=== PATIENT | male | born 1935 | race Asian ===

== ENCOUNTER 2021-10-14 07:47 | Outpatient (CLI) | payer MEDICARE, SELFPAY ==
[2021-10-14 20:23] LABS: Hematocrit 35.9 % (42.0-52.0); Hemoglobin 11.4 g/dL (14.0-18.0); Mean Corpuscular HGB Conc 31.8 g/dl (32-36); Mean Corpuscular Hemoglobin 31.5 pg (26-34); Mean Corpuscular Volume 99.2 fl (80-100); Mean Platelet Volume 11.2 fl (7.4-10.4); Platelet Count Result 158 k/mm3 (150-375); Red Blood Count 3.62 M/mm3 (4.6-6.20); White Blood Count 5.1 K/mm3 (4.5-10.0)
[2021-10-14 20:33] LABS: Alanine Aminotransferase 21 U/L (4-50); Albumin Level 4.1 g/dL (3.5-5.1); Alkaline Phosphatase 87 U/L (38-126); Anion Gap 9 mmol/L (8-16); Aspartate Amino Transferase 41 U/L (17-59); Bilirubin,Total 0.4 mg/dL (0.2-1.3); Blood Urea Nitrogen 36 mg/dL (9-20); Calcium 10.1 mg/dL (8.4-10.2); Carbon Dioxide 24 mmol/L (22-30); Chloride 109 mmol/L (98-107); Cholesterol 166 mg/dL (0-200); Estimated Glomerular Filt Rate 52; Glucose 113 mg/dL (65-110); HDL Direct 51 mg/dL; Potassium 4.2 mmol/L (3.4-5.0); Sodium 142 mmol/L (137-145); Triglycerides 210 mg/dL (<150)
[2021-10-14 21:00] LABS: Creatinine Urine 111.9 mg/dL; Prostate Specific Antigen 0.3 ng/mL (< OR = 4.0)
[2021-10-14 21:05] LABS: MALB Creatinine Ratio 10.7 mg/g (0-30)
[2021-10-14 21:37] LABS: Hemoglobin A1C 6.5 % (<5.7)
[2021-10-15 00:13] LABS: LDL Cholesterol Direct < 30 mg/dL
== END 2021-10-14 07:48 | disposition home or self-care (01) ==
PROVIDERS: PCP Family Medicine; Visit Provider Family Medicine
DX: E11.9 Type 2 diabetes mellitus without complications (principal); N40.0 Benign prostatic hyperplasia without lower urinary tract symptoms; I10 Essential (primary) hypertension; Z12.5 Encounter for screening for malignant neoplasm of prostate
CPT/HCPCS: 36415; 80053; 80061; 82043; 83036; 84153; 85027; G0103

== ENCOUNTER 2021-11-08 13:15 | Outpatient (CLI) | payer MEDICARE, SELFPAY | END 2021-11-08 13:16 | disposition home or self-care (01) | LOC: ANHBWCAUD 13:17 | PROVIDERS: PCP Family Medicine; Visit Provider Family Medicine | DX: H90.3 Sensorineural hearing loss, bilateral (principal) | CPT/HCPCS: 92557; 92567 ==

== ENCOUNTER 2021-11-26 10:45 | Outpatient (CLI) | payer MEDICARE, SELFPAY ==
--- NOTE | ~2021-11-26 | CT_ITS ---
EXAMINATION: CT brain wo con DATE: 11/26/2021 11:30 INDICATION: Loss of balance. Essential hypertension. TECHNIQUE: Computed tomography (CT) of the head was performed without intravenous contrast. The mA wa s adjusted according to patient size. Iterative reconstruction technique was employed. Exam dose: 68 1.00 mGy-cm total exam DLP. COMPARISON: None FINDINGS: Prominent bilateral carotid siphon internal carotid artery calcifications. There is nonspec ific diminished attenuation of the cerebral white matter, likely due to chronic small vessel ischemic changes. There is prominent central and cortical cerebral and cerebellar volume loss. No intracranial mass lesion or hemorrhage, midline shift or mass effect effect or subdural or epidura l hematoma is detected. The orbital contents are unremarkable. Prominent chronic appearing bilateral maxillary sinus opacification wall thickening. The paranasal si nuses and mastoid air cells are otherwise unremarkable. No fracture or bone destruction of the cranial vault. IMPRESSION: Bilateral carotid siphon internal carotid artery calcifications and nonspecific diminish ed attenuation of cerebral white matter, likely due to chronic small vessel ischemic changes Cerebral and cerebellar volume loss, likely age-related Chronic-appearing bilateral maxillary sinus opacification wall thickening Reviewed, dictated and finalized at [facility]. Reviewed, dictated and finalized at location [facility]. IMPRESSION: Bilateral carotid siphon internal carotid artery calcifications an d nonspecific diminished attenuation of cerebral white matter, likely due to ch ronic small vessel ischemic changes Cerebral and cerebellar volume loss, likely age-related Chronic-appearing bilateral maxillary sinus opacification wall thickening
== END 2021-11-26 10:46 | disposition home or self-care (01) ==
PROVIDERS: PCP Family Medicine; Visit Provider Family Medicine
DX: R42 Dizziness and giddiness (principal); I10 Essential (primary) hypertension; R93.0 Abnormal findings on diagnostic imaging of skull and head, not elsewhere classified
CPT/HCPCS: 70450

== ENCOUNTER 2022-01-21 09:47 | Outpatient (RCR) | payer MEDICARE, SELFPAY | END 2022-04-21 23:59 | disposition home or self-care (01) | LOC: ANHBWCAUD 09:47 | PROVIDERS: PCP Family Medicine; Visit Provider Family Medicine | DX: Z46.1 Encounter for fitting and adjustment of hearing aid (principal) | CPT/HCPCS: V5160; V5261 ==

== ENCOUNTER 2022-02-25 07:54 | Outpatient (CLI) | payer MEDICARE, SELFPAY ==
[2022-02-25 18:46] LABS: Hematocrit 30.6 % (42.0-52.0); Hemoglobin 9.5 g/dL (14.0-18.0); Mean Corpuscular Hemoglobin 30.8 pg (26-34); Mean Corpuscular Volume 99.4 fl (80-100); Platelet Count Result 258 k/mm3 (150-375); Red Blood Count 3.08 M/mm3 (4.6-6.20); Red Cell Distribution Width 14.7 % (11.5-14.5); White Blood Count 6.6 K/mm3 (4.5-10.0)
[2022-02-25 18:47] LABS: Basophils Percent Auto 0.6 % (0.2-1.2); Eosinophils Absolute Auto 0.1 K/mm3 (0-0.3); Eosinophils Percent Auto 0.9 % (0-4.4); Immature Granulocyte Absolute 0.05 K/mm3 (0.00-0.031); Immature Granulocyte Percent A 0.8 % (0-0.5); Lymphocytes Absolute Auto 0.86 K/mm3 (0.9-3.2); Mean Platelet Volume 11.2 fl (7.4-10.4); Monocytes Absolute Auto 0.5 K/mm3 (0.1-0.6); Monocytes Percent Auto 7.6 % (2.6-8.5); Neutrophils Absolute Auto 5.1 K/mm3 (1.3-6.7); Neutrophils Percent Auto 77.1 % (45.5-73.1)
[2022-02-25 19:05] LABS: Appearance Urine Clear (Clear); Bilirubin Urine Negative (Negative); Blood Urine Negative (Negative); Color Urine Yellow (Yellow); Glucose Urine UA Negative (Negative); Ketones Urine Negative (Negative); Leukocyte Esterase Ur Negative LEU/UL (NEGATIVE); Nitrate Urine Negative (Negative); Protein Urine 1+ mg/dL (Negative); Specific Grav Ur >= 1.030 (1.001-1.035); pH Urine 5.5 (5.0-9.0)
[2022-02-25 19:14] LABS: Mucus Urine Heavy /lpf; Squamous Epithelial Cell Urine Rare /hpf (Few); WBC Urine 0-3 /hpf (0-3)
[2022-02-25 19:23] LABS: Add Urine Microscopic? YES
[2022-02-25 20:03] LABS: Hemoglobin A1C 6.7 % (<5.7)
== END 2022-02-25 07:55 | disposition home or self-care (01) ==
PROVIDERS: PCP Family Medicine; Visit Provider Family Medicine
DX: R53.1 Weakness (principal); U07.1 COVID-19; E11.9 Type 2 diabetes mellitus without complications
CPT/HCPCS: 36415; 81001; 83036; 84443; 85025

== ENCOUNTER 2022-03-06 09:30 | Outpatient (CLI) | payer MEDICARE, SELFPAY ==
[2022-03-06 19:59] LABS: Immature Reticulocyte Fraction 9.4 % (3.0-15.9); Reticulocyte Hemoglobin Conten 37.9 pg (28.2-35.7); Reticulocyte Percent 2.24 % (0.7-4.3); Reticulocytes Absolute 0.07 B/L (32.2-175.7)
[2022-03-06 20:26] LABS: Appearance Urine Clear (Clear); Bilirubin Urine Negative (Negative); Blood Urine Negative (Negative); Color Urine Yellow (Yellow); Glucose Urine UA Negative (Negative); Ketones Urine Negative (Negative); Leukocyte Esterase Ur Negative LEU/UL (NEGATIVE); Nitrate Urine Negative (Negative); Protein Urine Negative (Negative); Urobilinogen Urine 0.2 mg/dL (<2.0)
[2022-03-06 20:32] LABS: Add Urine Microscopic? NO
[2022-03-06 21:17] LABS: Iron 102 ug/dL (49-181)
[2022-03-06 21:59] LABS: Percent Iron Saturation 31 % (20-50)
== END 2022-03-06 09:31 | disposition home or self-care (01) ==
PROVIDERS: PCP Family Medicine; Visit Provider Family Medicine
DX: D64.9 Anemia, unspecified (principal); R31.9 Hematuria, unspecified
CPT/HCPCS: 36415; 81003; 82607; 82728; 83540; 83550; 85046

== ENCOUNTER 2022-04-16 08:34 | Outpatient (CLI) | payer MEDICARE, SELFPAY ==
[2022-04-16 20:08] LABS: Appearance Urine Slightly Cloudy (Clear); Bilirubin Urine Negative (Negative); Blood Urine 1+ (Negative); Color Urine Yellow (Yellow); Glucose Urine UA Negative (Negative); Ketones Urine Negative (Negative); Leukocyte Esterase Ur Negative LEU/UL (NEGATIVE); Nitrate Urine Negative (Negative); Protein Urine Negative (Negative); Specific Grav Ur >= 1.030 (1.001-1.035); Urobilinogen Urine 0.2 mg/dL (<2.0)
[2022-04-16 20:15] LABS: Calcium Oxalate Crystals Urine Present /hpf; Mucus Urine Few /lpf; RBC Urine 21-50 /hpf (0-2); WBC Urine 0-3 /hpf (0-3)
[2022-04-16 20:17] LABS: Add Urine Microscopic? YES
[2022-04-16 20:29] LABS: Basophils Absolute Auto 0.1 K/mm3 (0.0-0.1); Eosinophils Absolute Auto 0.1 K/mm3 (0-0.3); Eosinophils Percent Auto 1.5 % (0-4.4); Hematocrit 34.7 % (42.0-52.0); Hemoglobin 10.9 g/dL (14.0-18.0); Immature Granulocyte Absolute 0.01 K/mm3 (0.00-0.031); Immature Granulocyte Percent A 0.2 % (0-0.5); Lymphocytes Absolute Auto 1.27 K/mm3 (0.9-3.2); Lymphocytes Percent Auto 21.7 % (18.3-44.2); Mean Corpuscular HGB Conc 31.4 g/dl (32-36); Mean Corpuscular Hemoglobin 32.7 pg (26-34); Mean Corpuscular Volume 104.2 fl (80-100); Monocytes Absolute Auto 0.4 K/mm3 (0.1-0.6); Neutrophils Absolute Auto 4.1 K/mm3 (1.3-6.7); Neutrophils Percent Auto 69.6 % (45.5-73.1); Platelet Count Result 199 k/mm3 (150-375); Red Blood Count 3.33 M/mm3 (4.6-6.20); Red Cell Distribution Width 18.9 % (11.5-14.5); White Blood Count 5.8 K/mm3 (4.5-10.0)
[2022-04-16 21:09] LABS: IFOB Positive Control Positive; Immunochemical Fecal Occult Bl Positive (N)
== END 2022-04-16 08:35 | disposition home or self-care (01) ==
PROVIDERS: PCP Family Medicine; Visit Provider Family Medicine
DX: D64.9 Anemia, unspecified (principal); R31.9 Hematuria, unspecified
CPT/HCPCS: 36415; 81001; 82274; 85025

== ENCOUNTER 2022-05-22 11:47 | Outpatient (CLI) | payer MEDICARE, SELFPAY ==
[2022-05-22 12:03] LABS: Basophils Absolute Auto 0.1 K/mm3 (0.0-0.1); Basophils Percent Auto 1.6 % (0.2-1.2); Eosinophils Absolute Auto 0.5 K/mm3 (0-0.3); Eosinophils Percent Auto 8.1 % (0-4.4); Hematocrit 34.8 % (42.0-52.0); Hemoglobin 11.4 g/dL (14.0-18.0); Immature Granulocyte Absolute 0.01 K/mm3 (0.00-0.031); Immature Granulocyte Percent A 0.2 % (0-0.5); Immature Reticulocyte Fraction 4.4 % (3.0-15.9); Lymphocytes Absolute Auto 1.26 K/mm3 (0.9-3.2); Lymphocytes Percent Auto 20.3 % (18.3-44.2); Mean Corpuscular HGB Conc 32.8 g/dl (32-36); Mean Corpuscular Hemoglobin 32.3 pg (26-34); Mean Corpuscular Volume 98.6 fl (80-100); Mean Platelet Volume 9.8 fl (7.4-10.4); Monocytes Absolute Auto 0.6 K/mm3 (0.1-0.6); Neutrophils Absolute Auto 3.8 K/mm3 (1.3-6.7); Neutrophils Percent Auto 60.8 % (45.5-73.1); Platelet Count Result 236 k/mm3 (150-375); Red Blood Count 3.53 M/mm3 (4.6-6.20); Red Cell Distribution Width 14.7 % (11.5-14.5); Reticulocyte Hemoglobin Conten 35.3 pg (28.2-35.7); Reticulocytes Absolute 0.05 B/L (32.2-175.7); White Blood Count 6.2 K/mm3 (4.5-10.0)
[2022-05-22 13:51] LABS: Iron 61 ug/dL (49-181)
[2022-05-22 13:53] LABS: Alanine Aminotransferase 23 U/L (6-50); Albumin Level 3.9 g/dL (3.5-5.1); Alkaline Phosphatase 103 U/L (38-126); Anion Gap 9 mmol/L (8-16); Aspartate Amino Transferase 53 U/L (17-59); Bilirubin,Total 0.6 mg/dL (0.2-1.3); Blood Urea Nitrogen 33 mg/dL (9-20); Calcium 9.3 mg/dL (8.4-10.2); Carbon Dioxide 28 mmol/L (22-30); Chloride 103 mmol/L (98-107); Estimated Glomerular Filt Rate 57; Glucose 153 mg/dL (65-110); Lactate Dehydrogenase 232 U/L (120-246); Potassium 4.1 mmol/L (3.4-5.0); Sodium 140 mmol/L (137-145)
[2022-05-22 14:00] LABS: Percent Iron Saturation 17 % (20-50)
[2022-05-22 14:58] LABS: Folic Acid 8.1 ng/mL (2.76->20)
[2022-05-26 07:59] LABS: Methylmalonic Acid 188 nmol/L (87-318)
== END 2022-05-22 11:48 | disposition home or self-care (01) ==
LOC: ANHLAB 11:48
PROVIDERS: PCP Family Medicine; Visit Provider Internal Medicine Hematology & Oncology
DX: D64.9 Anemia, unspecified (principal)
CPT/HCPCS: 36415; 80053; 82607; 82728; 82746; 83540; 83550; 83615; 83921; 85025; 85046

== ENCOUNTER 2022-05-27 00:44 | Day surgery (SDC) | payer MEDICARE, SELFPAY ==
[2022-05-15 13:07] VITALS: BMI 19.8
[2022-05-27 06:34] VITALS: BP 133/84; PULSE 91; RESP 18; TEMP 36.4; O2SAT 99
[2022-05-27] MEDS: LACTATED RINGERS 1,000 ML 150 ML IV CONT (06:45)
[2022-05-27 06:47] LABS: Glucose Point of Care 132 mg/dl (65-105)
--- NOTE | 2022-05-27 06:59 | P.PNAN_ITS ---
Anes - Initial Pre Proc Eval Procedure: Operation Date: 05/27/22 07:30 Proposed Procedures p Esophagogastroduodenoscopy & Colonoscopy - Yaw Zepeda MD Date/Time: 05/27/22 06:59 Surgeon: Yaw Zepeda MD Pre Op Diagnosis: anemia; fecal abnormalities Patient Data Age: 86 Gender: M Height: 1.6 m Weight: 48 kg Last Vital Signs Temp 36.4 C 05/27/22 06:34 Pulse 91 05/27/22 06:34 Resp 18 05/27/22 06:34 BP 133/84 05/27/22 06:34 Pulse Ox 99 05/27/22 06:34 O2 Del Method Room Air 05/27/22 06:34 Allergies Allergy/AdvReac Type Severity Reaction Status Date / Time No Known Allergies Allergy Verified 05/27/22 06:33 Home Medications Medication Instructions Recorded Confirmed Type glipizide 5 mg tablet, extended 5 mg PO DAILY #90 tabs 11/18/21 05/27/22 Rx release 24 hr betamethasone dipropionate 0.05 % 1 applic topical BID PRN rash #45 12/02/21 05/27/22 Rx topical cream grams losartan 50 mg tablet 50 mg PO DAILY #90 tabs 12/11/21 05/27/22 Rx fenofibrate 160 mg tablet 160 mg PO DAILY #90 tabs 01/09/22 05/27/22 Rx Lactobacillus 1 cap PO DAILY 05/15/22 05/27/22 History acidophilus-Bifidobac.animalis 2.5 billion cell capsule (Daily Probiotic) cholecalciferol (vitamin D3) 50 50 mcg PO DAILY 05/15/22 05/27/22 History mcg (2,000 unit) tablet (Vitamin D3) ferrous sulfate 325 mg (65 mg 325 mg PO DAILY 05/15/22 05/27/22 History iron) tablet psyllium husk 0.4 gram capsule 0.4 g PO DAILY 05/15/22 05/27/22 History (Metamucil) tamsulosin 0.4 mg capsule 0.8 mg PO DAILY 05/19/22 05/27/22 History Laboratory Tests 05/27/22 06:39 POC Capillary Glucose 132 mg/dl H mg/dl (65-105) Patient hx anesthesia problems: none Family hx anesthesia problems: none Results Review: All pre-operative results and documents have been reviewed as part of the pre- operative evaluation. [facility] Past Medical History Medical History Anemia Diabetes History of prostate cancer HTN (hypertension) Social History Social History Smoking status: Never smoker Alcohol intake: never Substance use: never Substance use type: does not use Living arrangements: with family Spiritual care concerns: No Anes - Eval Final PreProcedure Day of Procedure 05/27/22 06:59 Patient weight: thin Heart: regular rate and rhythm Lungs: clear to auscultation Airway: Mallampati scale class II Last oral intake: >/= 8 hours ASA classification: III Emergent: no Anesthetic plan: proceed Anesthesia type and monitoring: general GIVS and standard monitoring Results Review: All pre-operative results and documents have been reviewed as part of the pre- operative evaluation. Informed Consent: The patient's anesthetic plan and its attendant risks and benefits were discussed with the patient/family/POA. Questions were solicited and answers pro vided to the satisfaction of the patient/family/POA.
--- NOTE | 2022-05-27 07:23 | PM.HPGS ---
History of Present Illness History of Present Illness Consent: Risks, benefits, and alternatives have been discussed and questions answered. Patient agrees to proceed with procedure. Chief complaint: anemia; fecal abnormalities Narrative: Gordy Lynn is a 86 year old male with anemia and FOBT, had colonoscopy but over 20 years ago Review of Systems Constitutional: Constitutional: Denies headache(s) and Denies weakness Eyes: Eyes: Denies blurry vision ENT: Reports Normal hearing present, Denies headache(s) and Denies neck pain Cardiovascular: Cardiovascular: Denies chest pain and Denies dyspnea Respiratory: Respiratory: Denies dyspnea Gastrointestinal: Gastrointestinal: Reports no additional gastrointestinal complaints Genitourinary: Genitourinary: Denies dysuria Musculoskeletal: Musculoskeletal: Denies neck pain Integumentary/Breasts: Skin/Breast: Denies dry skin Neurologic: Reports Normal hearing present, Denies headache(s) and Denies weakness Psychiatric: Psychiatric: Denies anxiety Endocrine: Endocrine: Denies change in body appearance Hematologic/Lymphatic: Hematologic/Lymphatic: Denies easy bleeding Allergic/Immunologic: Allergic/Immunologic: Denies urticaria PMFSH Past Medical History Medical History (Updated 05/27/22 @ 07:24 by Yaw Zepeda MD) Anemia Diabetes History of prostate cancer HTN (hypertension) Social History Social History Smoking status: Never smoker Alcohol intake: never Substance use: never Substance use type: does not use Living arrangements: with family Spiritual care concerns: No Meds Home Medications and Allergies Home Medications Medication Instructions Recorded Confirmed Type glipizide 5 mg tablet, extended 5 mg PO DAILY #90 tabs 11/18/21 05/27/22 Rx release 24 hr betamethasone dipropionate 0.05 % 1 applic topical BID PRN rash #45 12/02/21 05/27/22 Rx topical cream grams losartan 50 mg tablet 50 mg PO DAILY #90 tabs 12/11/21 05/27/22 Rx fenofibrate 160 mg tablet 160 mg PO DAILY #90 tabs 01/09/22 05/27/22 Rx Lactobacillus 1 cap PO DAILY 05/15/22 05/27/22 History acidophilus-Bifidobac.animalis 2.5 billion cell capsule (Daily Probiotic) cholecalciferol (vitamin D3) 50 50 mcg PO DAILY 05/15/22 05/27/22 History mcg (2,000 unit) tablet (Vitamin D3) ferrous sulfate 325 mg (65 mg 325 mg PO DAILY 05/15/22 05/27/22 History iron) tablet psyllium husk 0.4 gram capsule 0.4 g PO DAILY 05/15/22 05/27/22 History (Metamucil) tamsulosin 0.4 mg capsule 0.8 mg PO DAILY 05/19/22 05/27/22 History Allergies Allergy/AdvReac Type Severity Reaction Status Date / Time No Known Allergies Allergy Verified 05/27/22 06:33 Vital Signs Vital Signs - 24 hr 05/27/22 06:34 Temperature 97.6 F Pulse Rate 91 Respiratory Rate 18 Blood Pressure 133/84 Pulse Oximetry 99 Oxygen Delivery Room Air Exam Const: General: comfortable and no acute distress HENMT: Face/Nose/Sinus: Normal nares present Eyes: General: appearance normal, both eyes and all related structures Neck: Neck: no JVD Resp: Auscultation: clear to auscultation bilaterally Cardio: Rate: regular rate Rhythm: regular rhythm GI: Inspection: non-distended GI Palp: Yes Soft to palpation Skin: General skin exam: normal color Neuro: Speech: normal speech Extrem: General: normal to inspection Psych: Mental Status: mental status grossly normal Assessment and Plan Assessment and plan (1) Guaiac positive stools: Code(s): R19.5 - Other fecal abnormalities Status: Acute Assessment and Plan: colonoscopy (2) Anemia: Code(s): D64.9 - Anemia, unspecified Status: Acute Assessment and Plan: egd to assess if gi blood loss
--- NOTE | 2022-05-27 08:05 | SUR.OPER ---
EGD start 731 end 740, Colonoscopy start 745 end 754
[2022-05-27 08:07] VITALS: BP 110/69; PULSE 65; RESP 14; O2SAT 99
[2022-05-27 08:17] VITALS: BP 122/72; PULSE 69; RESP 18; O2SAT 99
[2022-05-27 08:27] VITALS: BP 140/78; PULSE 64; RESP 16; O2SAT 100
== END 2022-05-27 08:40 | disposition home or self-care (01) ==
PROVIDERS: PCP Family Medicine; Visit Provider Internal Medicine Gastroenterology
PROC: 0DJ08ZZ Inspection of Upper Intestinal Tract, Via Natural or Artificial Opening Endoscopic (ICD-10-PCS; CPT 43235; principal; 2022-05-27 07:30)
DX: D50.9 Iron deficiency anemia, unspecified (principal); R19.5 Other fecal abnormalities; K57.30 Diverticulosis of large intestine without perforation or abscess without bleeding; K64.8 Other hemorrhoids; K44.9 Diaphragmatic hernia without obstruction or gangrene; E11.9 Type 2 diabetes mellitus without complications; I10 Essential (primary) hypertension; Z85.46 Personal history of malignant neoplasm of prostate; Z79.84 Long term (current) use of oral hypoglycemic drugs
CPT/HCPCS: 45378; 43239; 82948; 88305; J2370; J2704; J7120

== ENCOUNTER 2022-07-30 14:26 | Outpatient (CLI) | payer MEDICARE, SELFPAY ==
[2022-07-30 21:50] LABS: Hemoglobin A1C 6.3 % (<5.7)
== END 2022-07-30 14:27 | disposition home or self-care (01) ==
PROVIDERS: PCP Family Medicine; Visit Provider Family Medicine
DX: E11.9 Type 2 diabetes mellitus without complications (principal)
CPT/HCPCS: 36415; 83036

== ENCOUNTER 2022-10-29 16:11 | Outpatient (CLI) | payer MEDICARE, SELFPAY ==
--- NOTE | ~2022-10-29 | CT_ITS ---
EXAMINATION: CT brain wo con DATE: 10/29/2022 16:27 INDICATION: head trauma . TECHNIQUE: Computed tomography (CT) of the head was performed without intravenous contrast. The mA wa s adjusted according to patient size. Iterative reconstruction technique was employed. The dose-lengt h product was 681.00 mGy-cm. COMPARISON: 11/26/2021. FINDINGS: No acute intracranial hemorrhage or extra-axial fluid collection. No hydrocephalus, mass, or herniation. No acute ischemic infarct. Unremarkable dural venous sinus attenuation. No acute osseous abnormality. Bilateral maxillary sinus mucosal thickening with surrounding osseous sclerosis, the remaining aerate d spaces are clear. Mild atrophy and chronic white matter change. Atherosclerotic intracranial calcification. 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 Minimal right basal ganglia calcification. Bilateral lens replacements. IMPRESSION: No acute intracranial process. Chronic bilateral maxillary sinusitis. Reviewed, dictated and finalized at location [facility].
== END 2022-10-29 16:12 | disposition home or self-care (01) ==
LOC: ANHIMG 16:13
PROVIDERS: PCP Family Medicine; Visit Provider Family Medicine
DX: S09.90XA Unspecified injury of head, initial encounter (principal); J32.0 Chronic maxillary sinusitis
CPT/HCPCS: 70450

== ENCOUNTER 2022-11-05 08:09 | Outpatient (CLI) | payer MEDICARE, SELFPAY ==
[2022-11-05 08:33] LABS: Basophils Absolute Auto 0.1 K/mm3 (0.0-0.1); Basophils Percent Auto 1.4 % (0.2-1.2); Eosinophils Absolute Auto 0.4 K/mm3 (0-0.3); Eosinophils Percent Auto 6.8 % (0-4.4); Hematocrit 33.2 % (42.0-52.0); Hemoglobin 10.7 g/dL (14.0-18.0); Immature Granulocyte Absolute 0.02 K/mm3 (0.00-0.031); Immature Granulocyte Percent A 0.4 % (0-0.5); Lymphocytes Absolute Auto 1.88 K/mm3 (0.9-3.2); Lymphocytes Percent Auto 36.7 % (18.3-44.2); Mean Corpuscular HGB Conc 32.2 g/dl (32-36); Mean Corpuscular Hemoglobin 32.8 pg (26-34); Mean Corpuscular Volume 101.8 fl (80-100); Mean Platelet Volume 10.3 fl (7.4-10.4); Monocytes Absolute Auto 0.4 K/mm3 (0.1-0.6); Neutrophils Absolute Auto 2.4 K/mm3 (1.3-6.7); Neutrophils Percent Auto 47.7 % (45.5-73.1); Platelet Count Result 159 k/mm3 (150-375); Red Blood Count 3.26 M/mm3 (4.6-6.20); Red Cell Distribution Width 15.8 % (11.5-14.5); White Blood Count 5.1 K/mm3 (4.5-10.0)
[2022-11-05 08:44] LABS: Alanine Aminotransferase 20 U/L (6-50); Albumin Level 3.6 g/dL (3.5-5.1); Alkaline Phosphatase 137 U/L (38-126); Anion Gap 9 mmol/L (8-16); Aspartate Amino Transferase 34 U/L (17-59); Bilirubin,Total 0.7 mg/dL (0.2-1.3); Blood Urea Nitrogen 29 mg/dL (9-20); Calcium 9.4 mg/dL (8.4-10.2); Carbon Dioxide 26 mmol/L (22-30); Chloride 105 mmol/L (98-107); Cholesterol 133 mg/dL (0-200); Estimated Glomerular Filt Rate > 60; Glucose 245 mg/dL (65-110); HDL Direct 46 mg/dL; Potassium 4.2 mmol/L (3.4-5.0); Sodium 140 mmol/L (137-145); Triglycerides 199 mg/dL (<150)
[2022-11-05 08:59] LABS: LDL Cholesterol Direct < 30 mg/dL
[2022-11-05 09:15] LABS: Prostate Specific Antigen < 0.1 ng/mL (< OR = 4.0)
== END 2022-11-05 08:10 | disposition home or self-care (01) ==
PROVIDERS: PCP Family Medicine; Visit Provider Family Medicine
DX: Z00.00 Encounter for general adult medical examination without abnormal findings (principal); E11.9 Type 2 diabetes mellitus without complications; N40.0 Benign prostatic hyperplasia without lower urinary tract symptoms; I10 Essential (primary) hypertension; R53.1 Weakness; R63.4 Abnormal weight loss; D64.9 Anemia, unspecified; G47.00 Insomnia, unspecified; Z85.46 Personal history of malignant neoplasm of prostate; Z12.5 Encounter for screening for malignant neoplasm of prostate
CPT/HCPCS: 36415; 80053; 80061; 84153; 85025; G0103

== ENCOUNTER 2022-12-17 10:18 | Outpatient (CLI) | payer MEDICARE, SELFPAY ==
[2022-12-17 19:29] LABS: Vitamin D 25 Hydroxy 98.7 ng/mL
[2022-12-17 21:57] LABS: Prostate Specific Antigen < 0.1 ng/mL (< OR = 4.0)
== END 2022-12-17 10:19 | disposition home or self-care (01) ==
LOC: ANHBWCLAB 10:19
PROVIDERS: PCP Family Medicine; Visit Provider Family Medicine
DX: E11.9 Type 2 diabetes mellitus without complications (principal); N40.0 Benign prostatic hyperplasia without lower urinary tract symptoms; R53.1 Weakness; R63.4 Abnormal weight loss; D64.9 Anemia, unspecified; I10 Essential (primary) hypertension; Z85.46 Personal history of malignant neoplasm of prostate; E55.9 Vitamin D deficiency, unspecified; Z12.5 Encounter for screening for malignant neoplasm of prostate
CPT/HCPCS: 36415; 82306; 82607; 83036; 84153; G0103

== ENCOUNTER 2022-12-18 14:05 | Outpatient (CLI) | payer MEDICARE, SELFPAY ==
[2022-12-18 18:56] LABS: Appearance Urine Clear (Clear); Bilirubin Urine Negative (Negative); Blood Urine Negative (Negative); Color Urine Yellow (Yellow); Glucose Urine UA Negative (Negative); Ketones Urine Negative (Negative); Leukocyte Esterase Ur Negative LEU/UL (NEGATIVE); Nitrate Urine Negative (Negative); Protein Urine Negative (Negative)
[2022-12-18 18:58] LABS: Add Urine Microscopic? NO
== END 2022-12-18 14:06 | disposition home or self-care (01) ==
PROVIDERS: PCP Family Medicine; Visit Provider Nurse Practitioner
DX: N40.0 Benign prostatic hyperplasia without lower urinary tract symptoms (principal); R53.1 Weakness; E11.9 Type 2 diabetes mellitus without complications
CPT/HCPCS: 81003

== ENCOUNTER 2023-01-03 10:50 | Emergency (ER) | payer MEDICARE, SELFPAY ==
--- NOTE | ~2023-01-03 | CT_ITS ---
EXAMINATION: CT brain wo con DATE: 01/03/2023 11:11 INDICATION: Fall this morning. Head injury. Nasal laceration. Possible loss of consciousness. TECHNIQUE: Computed tomography (CT) of the head was performed without intravenous contrast. The mA wa s adjusted according to patient size. Iterative reconstruction technique was employed. Exam dose: 60 5.33 mGy-cm total exam DLP. COMPARISON: October 29, 2022 CT brain FINDINGS: Bilateral vertebral artery and bilateral carotid siphon internal carotid artery calcificati ons. Nonspecific diminished attenuation of the cerebral white matter, likely due to chronic small ves eleonora ischemic changes. There is central and cortical cerebral and cerebellar atrophy. No intracranial mass lesion or hemorrhage or recent cerebrovascular accident. No midline shift or mas s effect. No subdural or epidural hematoma. There is chronic thickening of the roper of the maxillary sinuses, chronic bilateral mucoperiosteal t hickening of the maxillary sinuses. The mastoid air cells and paranasal sinuses are otherwise unremar kable. No fracture or bone destruction of the cranial vault. IMPRESSION: No acute finding or skull fracture or significant change since 10/29/2022 Reviewed, dictated and finalized at [facility]. Reviewed, dictated and finalized at location [facility]. IMPRESSION: No acute finding or skull fracture or significant change since 10/18
[2023-01-03 10:56] VITALS: BP 147/86; PULSE 94; RESP 16; TEMP 36.4; O2SAT 99
--- NOTE | 2023-01-03 11:56 | ED.GENADULT ---
HPI - General Adult General Chief complaint: Head Injury Stated complaint: fall, head injury Time Seen by Provider: 01/03/23 11:01 History of Present Illness HPI narrative: 87-year-old male presented the emergency department for evaluation for a ground-level fall. Patient states he has had some increased generalized weakness over the course of the last week. Patient states that he typically goes walking half a mile every day. Patient states that he felt kind of tired walking today and returned home returning home he was walking down the steps and is unsure how he fell but states he tumbled down 8 stairs. Patient is unsure if he had any loss of consciousness. Patient did strike his head. Patient denies any other injury besides a skin tear on his scalp. Patient does have a history of urinary retention. Related Data Home Medications Medication Instructions Recorded Confirmed Lactobacillus 1 cap PO DAILY 05/15/22 12/18/22 acidophilus-Bifidobac.animalis 2.5 billion cell capsule (Daily Probiotic) cholecalciferol (vitamin D3) 50 50 mcg PO DAILY 05/15/22 12/18/22 mcg (2,000 unit) tablet (Vitamin D3) ferrous sulfate 325 mg (65 mg 325 mg PO DAILY 05/15/22 12/18/22 iron) tablet psyllium husk 0.4 gram capsule 0.4 g PO DAILY 05/15/22 12/18/22 (Metamucil) solifenacin 5 mg tablet 5 mg PO DAILY 06/24/22 12/18/22 Allergies Allergy/AdvReac Type Severity Reaction Status Date / Time No Known Allergies Allergy Verified 01/03/23 11:19 Review of Systems Review of Systems: All systems reviewed & are unremarkable except as noted in HPI and below PMFSH Past Medical History Medical History Anemia Diabetes History of prostate cancer HTN (hypertension) Vitamin D3 deficiency Social History Social History Smoking status: Never smoker Alcohol intake: never Substance use: never Substance use type: does not use Lack of Transportation: No Lack of Food: Never True Current Housing: I Have Housing Concerned About Future Housing: No Difficulty Paying Gas/Electric Bills: No Difficulty Paying for Meds: No Currently Unemployed: No Education: Bachelor's Degree Difficulty w/ Childcare or Family Care: No Living arrangements: with family Spiritual care concerns: No Exam Narrative: APPEARANCE: Well appearing, no pain, no distress, well-nourished. HEAD: normocephalic, scalp skin tear. EYES: PERRLA/EOMI, conjunctivae clear. NOSE: Normal no drainage NECK: Supple. No adenopathy, no masses. RESPIRATORY: Airway patent, respirations nonlabored. Clear to auscultation bilaterally, no rales, rhonchi, wheezing. CARDIOVASCULAR: Regular rate and rhythm without murmurs rubs or gallops. ABDOMINAL: Soft, nontender, nondistended, normal bowel sounds MUSCULOSKELETAL: Moves all extremities. Strength/ROM intact, No edema, No calf tenderness. NEURO: Alert. Cranial nerves II through XII intact. Grossly intact SKIN: Scalp skin tear Course Course Emergency Course: 79-year-old male presented ED for evaluation for a head injury after a fall down some stairs. Patient denies any other pain or injury. Patient had a negative head CT. Skin tear on scalp was repaired with Steri-Strips. Patient was afebrile with no leukocytosis. Patient's hemoglobin is similar to his baseline. No significant abnormalities on the CMP and no evidence of a urinary tract infection. Patient family were updated on the results of the work-up. All questions concerns were addressed and patient was well-appearing at time of discharge. Vital Signs Vital signs: Vital Signs Temperature 97.6 F 01/03/23 10:56 Pulse Rate 94 01/03/23 10:56 Respiratory Rate 16 01/03/23 10:56 Blood Pressure 147/86 H 01/03/23 10:56 Pulse Oximetry 99 01/03/23 10:56 Oxygen Delivery Room Air 01/03/23 10:56 Temperature 97.6 F
[2023-01-03 12:45] LABS: Basophils Absolute Auto 0.1 K/mm3 (0.0-0.1); Basophils Percent Auto 1.4 % (0.2-1.2); Eosinophils Absolute Auto 0.3 K/mm3 (0-0.3); Eosinophils Percent Auto 5.8 % (0-4.4); Hematocrit 32.2 % (42.0-52.0); Hemoglobin 10.6 g/dL (14.0-18.0); Immature Granulocyte Absolute 0.02 K/mm3 (0.00-0.031); Immature Granulocyte Percent A 0.4 % (0-0.5); Lymphocytes Absolute Auto 0.97 K/mm3 (0.9-3.2); Lymphocytes Percent Auto 19.4 % (18.3-44.2); Mean Corpuscular HGB Conc 32.9 g/dl (32-36); Mean Corpuscular Hemoglobin 32.8 pg (26-34); Mean Corpuscular Volume 99.7 fl (80-100); Mean Platelet Volume 10.5 fl (7.4-10.4); Monocytes Absolute Auto 0.4 K/mm3 (0.1-0.6); Neutrophils Absolute Auto 3.3 K/mm3 (1.3-6.7); Platelet Count Result 158 k/mm3 (150-375); Red Blood Count 3.23 M/mm3 (4.6-6.20); Red Cell Distribution Width 14.9 % (11.5-14.5)
[2023-01-03 12:46] LABS: Appearance Urine Clear (Clear); Bilirubin Urine Negative (Negative); Blood Urine Negative (Negative); Color Urine Yellow (Yellow); Glucose Urine UA Negative (Negative); Ketones Urine Negative (Negative); Leukocyte Esterase Ur Negative LEU/UL (Negative); Nitrate Urine Negative (Negative); Protein Urine Negative (Negative); Urobilinogen Urine 0.2 mg/dL (<2.0)
[2023-01-03 12:48] LABS: Add Urine Microscopic? NO
[2023-01-03 12:59] LABS: Alanine Aminotransferase 21 U/L (6-50); Albumin Level 3.5 g/dL (3.5-5.1); Alkaline Phosphatase 90 U/L (38-126); Anion Gap 3 mmol/L (8-16); Aspartate Amino Transferase 38 U/L (17-59); Bilirubin,Total 0.6 mg/dL (0.2-1.3); Blood Urea Nitrogen 31 mg/dL (9-20); Calcium 9.4 mg/dL (8.4-10.2); Carbon Dioxide 30 mmol/L (22-30); Chloride 107 mmol/L (98-107); Estimated CRCL calculation 30 ml/min; Estimated Glomerular Filt Rate > 60; Glucose 151 mg/dL (65-110); Potassium 4.5 mmol/L (3.4-5.0); Sodium 140 mmol/L (137-145)
== END 2023-01-03 13:30 | disposition home or self-care (01) ==
PROVIDERS: Emergency Provider Emergency Medicine; PCP Family Medicine
DX: S01.01XA Laceration without foreign body of scalp, initial encounter (principal); E11.9 Type 2 diabetes mellitus without complications; I10 Essential (primary) hypertension; E55.9 Vitamin D deficiency, unspecified; Z85.46 Personal history of malignant neoplasm of prostate; Z79.84 Long term (current) use of oral hypoglycemic drugs; W10.9XXA Fall (on) (from) unspecified stairs and steps, initial encounter
CPT/HCPCS: 36415; 70450; 80053; 81003; 85025; 99284

== ENCOUNTER 2023-01-09 14:20 | Emergency (ER) | payer MEDICARE, SELFPAY ==
[2023-01-09 14:23] VITALS: BP 112/72; PULSE 94; RESP 16; TEMP 36.3; O2SAT 98
--- NOTE | 2023-01-09 15:49 | ED.WOUNDLAC ---
HPI - Wound/Laceration General Chief Complaint: Wound/Laceration Stated Complaint: wound still bleeding Time Seen by Provider: 01/09/23 15:05 History of Present Illness HPI narrative: This is an 87-year-old male, presenting to the emergency department for wound examination. He was seen approximately 1 week ago for a skin tear of the scalp. His lszgthxp-[id number]-tzy is concerned for some drainage of blood. The patient denies fevers, increased pain or spreading redness. Related Data Home Medications Medication Instructions Recorded Confirmed Lactobacillus 1 cap PO DAILY 05/15/22 12/18/22 acidophilus-Bifidobac.animalis 2.5 billion cell capsule (Daily Probiotic) cholecalciferol (vitamin D3) 50 50 mcg PO DAILY 05/15/22 12/18/22 mcg (2,000 unit) tablet (Vitamin D3) ferrous sulfate 325 mg (65 mg 325 mg PO DAILY 05/15/22 12/18/22 iron) tablet psyllium husk 0.4 gram capsule 0.4 g PO DAILY 05/15/22 12/18/22 (Metamucil) solifenacin 5 mg tablet 5 mg PO DAILY 06/24/22 12/18/22 Allergies Allergy/AdvReac Type Severity Reaction Status Date / Time No Known Allergies Allergy Verified 01/03/23 11:19 Review of Systems Review of Systems: CONSTITUTIONAL: Denies fever, chills, or sweats. CARDIOVASCULAR: Denies chest pain, palpitations, or edema. RESPIRATORY: Denies cough or dyspnea. GASTROINTESTINAL: Denies abdominal pain, nausea, vomiting, or diarrhea. GENITOURINARY: Denies dysuria or hematuria. SKIN: Scalp wound. Denies rash or itching. MUSCULOSKELETAL: Denies back pain, joint pain, or myalgia. NEUROLOGIC: Denies headache, numbness, dizziness, or weakness. PSYCHIATRIC: Denies anxiety or depression. [facility] Past Medical History Medical History Anemia Diabetes History of prostate cancer HTN (hypertension) Vitamin D3 deficiency Social History Social History Smoking status: Never smoker Alcohol intake: never Substance use: never Substance use type: does not use Lack of Transportation: No Lack of Food: Never True Current Housing: I Have Housing Concerned About Future Housing: No Difficulty Paying Gas/Electric Bills: No Difficulty Paying for Meds: No Currently Unemployed: No Education: Bachelor's Degree Difficulty w/ Childcare or Family Care: No Living arrangements: with family Spiritual care concerns: No Exam Narrative: GENERAL: Well-developed, well-nourished, and in no acute distress. HEAD: Normocephalic, an area of skin tear with Steri-Strips in place is noted on the scalp. The surrounding tissue is not erythematous or indurated. There is a small amount of serosanguineous drainage noted. EYES: PERRLA and EOMI. CHEST: Clear to auscultation. No respiratory distress. No wheezes rales or rhonchi HEART: Regular rate and rhythm. No murmur heard. Normal peripheral pulses. ABDOMEN: Soft, nontender, nondistended, normal active bowel sounds. NEURO: No focal deficits. Alert and oriented x3. PSYCH: Normal mood and affect. Course Course Emergency Course: 15:48 - The patient's exam is not concerning for infection. I advised him and his dolzqyte-lf-vyt on wound care and recommended follow-up with his primary care doctor. Discussed return and emergency precautions including signs/symptoms of wound infection and sepsis. The patient and his [id number]-imw voiced understanding and are comfortable with the plan. All questions answered to their satisfaction Vital Signs Vital signs: Vital Signs Temperature 97.4 F L 01/09/23 14:23 Pulse Rate 94 01/09/23 14:23 Respiratory Rate 16 01/09/23 14:23 Blood Pressure 112/72 01/09/23 14:23 Pulse Oximetry 98 01/09/23 14:23 Oxygen Delivery Room Air 01/09/23 14:23 Temperature 98.3 F 01/09/23 16:00 Pulse Rate 72 01/09/23 16:00 Respiratory Rate 16 01/09/23 16:00 Blood Pressure 118/68 01/09/23 1
[2023-01-09 16:00] VITALS: BP 118/68; PULSE 72; RESP 16; TEMP 36.8; O2SAT 98
== END 2023-01-09 16:02 | disposition home or self-care (01) ==
PROVIDERS: Emergency Provider Preventive Medicine Aerospace Medicine; PCP Family Medicine
DX: S01.01XD Laceration without foreign body of scalp, subsequent encounter (principal); E11.9 Type 2 diabetes mellitus without complications; I10 Essential (primary) hypertension; D64.9 Anemia, unspecified; E55.9 Vitamin D deficiency, unspecified; Z85.46 Personal history of malignant neoplasm of prostate; Z79.84 Long term (current) use of oral hypoglycemic drugs; X58.XXXD Exposure to other specified factors, subsequent encounter
CPT/HCPCS: 99282

== ENCOUNTER 2023-03-11 14:34 | Outpatient (CLI) | payer MEDICARE, SELFPAY ==
--- NOTE | ~2023-03-11 | XR_ITS ---
EXAMINATION: XR skull min 4V DATE: 03/11/2023 14:54 INDICATION: Unspecified head injury TECHNIQUE: Tino Lobato and left and right lateral views of the skull were obtained. COMPARISON: Head CT dated 01/03/2023 FINDINGS: No calvarial or maxillofacial fractures identified. No appreciable lucency in the region of the maxil maged sinuses likely sequela of chronic sinusitis with prominent mucosal thickening and thickened scle rotic roper are evident on prior CT imaging. Nasal septum is midline. IMPRESSION: 1. No fracture. Reviewed, dictated and finalized at location [facility]. IMPRESSION: 1. No fracture.
== END 2023-03-11 14:35 | disposition home or self-care (01) ==
PROVIDERS: PCP Family Medicine; Visit Provider Nurse Practitioner Adult Health
DX: S09.90XA Unspecified injury of head, initial encounter (principal); X58.XXXA Exposure to other specified factors, initial encounter
CPT/HCPCS: 70260

== ENCOUNTER 2023-03-23 09:33 | Emergency (ER) | payer MEDICARE, SELFPAY ==
[2023-03-23 09:42] VITALS: BP 158/99; PULSE 92; RESP 16; TEMP 36.6; O2SAT 100
--- NOTE | 2023-03-23 09:42 | ED.WOUNDLAC ---
HPI - Wound/Laceration General Chief Complaint: Wound/Laceration Stated Complaint: wound check Time Seen by Provider: 03/23/23 09:42 Source: patient Mode of arrival: ambulatory Limitations: no limitations History of Present Illness HPI narrative: Gordy is an 87-year-old male patient presenting to the ER today for a wound check. He reports he fell and hit his head a couple months ago and had an open wound to the top of his head. States he just has just finished up some antibiotics yesterday that his PCPs office prescribed. Related Data Home Medications Medication Instructions Recorded Confirmed Lactobacillus 1 cap PO DAILY 05/15/22 03/11/23 acidophilus-Bifidobac.animalis 2.5 billion cell capsule (Daily Probiotic) cholecalciferol (vitamin D3) 50 50 mcg PO DAILY 05/15/22 03/11/23 mcg (2,000 unit) tablet (Vitamin D3) ferrous sulfate 325 mg (65 mg 325 mg PO DAILY 05/15/22 03/11/23 iron) tablet psyllium husk 0.4 gram capsule 0.4 g PO DAILY 05/15/22 03/11/23 (Metamucil) solifenacin 5 mg tablet 5 mg PO DAILY 06/24/22 03/11/23 Allergies Allergy/AdvReac Type Severity Reaction Status Date / Time No Known Allergies Allergy Verified 03/23/23 09:45 Review of Systems Review of Systems: Pertinent positives per HPI. Patient denies any fever, chills, rash, headache, visual changes, dizziness, cough, runny nose, sore throat, shortness of breath, chest pain, palpitations, nausea, vomiting, diarrhea, constipation, abdominal pain, or any urinary issues. [facility] Past Medical History Medical History Anemia Diabetes History of prostate cancer HTN (hypertension) Vitamin D3 deficiency Social History Social History Smoking status: Never smoker Alcohol intake: never Substance use: never Substance use type: does not use Lack of Transportation: No Lack of Food: Never True Current Housing: I Have Housing Concerned About Future Housing: No Difficulty Paying Gas/Electric Bills: No Difficulty Paying for Meds: No Currently Unemployed: No Education: Bachelor's Degree Difficulty w/ Childcare or Family Care: No Living arrangements: with family Spiritual care concerns: No Comments At the time of my signature, I reviewed and agree with the nursing past medical, surgical, social, and family history. There is no relevant family history pertinent to the patient complaint. Exam Narrative: General: Well-developed, well nourished, in no apparent distress Head: Normocephalic, atraumatic. Cardio: Regular rate and rhythm, s1 and s2 normal, no murmur appreciated. Resp: Clear to auscultation bilaterally, no rhonchi, rales, wheezing or rubs. Integumentary: [place], warm, and dry, slough tissue to the top of the head with mild redness, non-tender to palpation, purulent blood white discharge expressed from the wound- wound was debrided and measuring 2x3 cm Course Course Emergency Course: Portions of this record may have been created with voice recognition software. Vital Signs Vital signs: Vital Signs Temperature 36.6 C 03/23/23 09:42 Pulse Rate 92 03/23/23 09:42 Respiratory Rate 16 03/23/23 09:42 Blood Pressure 158/99 H 03/23/23 09:42 Pulse Oximetry 100 03/23/23 09:42 Temperature 36.6 C 03/23/23 09:42 Pulse Rate 92 03/23/23 09:42 Respiratory Rate 16 03/23/23 09:42 Blood Pressure 158/99 H 03/23/23 09:42 Pulse Oximetry 100 03/23/23 09:42 Vital signs reviewed Procedures Other Procedure Procedure 1: Other Procedure: Verbal consent obtained for wound debridement of the scalp. Risk and benefits were explained patient voiced understanding.LET was placed on the scalp and allowed to sit in place for 15 minutes prior to procedure. A curette was then used to debride the sloughing/scabbed tissue from on top of the wound. Thi
[2023-03-23] MEDS: LIDOCAINE, EPINEPHRINE, TETRACAINE VISCOUS SOLN 3 ML TOPICAL (10:16)
== END 2023-03-23 11:30 | disposition home or self-care (01) ==
PROVIDERS: Emergency Provider Nurse Practitioner Family; PCP Family Medicine
DX: S01.00XA Unspecified open wound of scalp, initial encounter (principal); L08.9 Local infection of the skin and subcutaneous tissue, unspecified; D64.9 Anemia, unspecified; E11.9 Type 2 diabetes mellitus without complications; I10 Essential (primary) hypertension; E55.9 Vitamin D deficiency, unspecified; Z85.46 Personal history of malignant neoplasm of prostate; W19.XXXA Unspecified fall, initial encounter
CPT/HCPCS: 11000; 87070; 87147; 87181; 87186; 87205; 99283

== ENCOUNTER 2023-03-31 12:16 | Outpatient (RCR) | payer MEDICARE, SELFPAY ==
[2023-03-31 13:00] VITALS: BMI 21.0
== END 2023-06-15 09:50 | disposition home or self-care (01) ==
LOC: ANHWOC 12:16
PROVIDERS: PCP Family Medicine; Visit Provider Family Medicine
DX: S09.90XD Unspecified injury of head, subsequent encounter (principal); T14.8XXD Other injury of unspecified body region, subsequent encounter
CPT/HCPCS: 99213; A9270; G0463

== ENCOUNTER 2023-05-11 14:27 | Outpatient (CLI) | payer MEDICARE, SELFPAY ==
[2023-05-11 19:21] LABS: Appearance Urine Clear (Clear); Bilirubin Urine Negative (Negative); Blood Urine Negative (Negative); Color Urine Yellow (Yellow); Glucose Urine UA Negative (Negative); Ketones Urine Negative (Negative); Leukocyte Esterase Ur Negative LEU/UL (NEGATIVE); Nitrate Urine Negative (Negative); Protein Urine Negative (Negative); Specific Grav Ur 1.023 (1.001-1.035)
[2023-05-11 19:32] LABS: Add Urine Microscopic? NO
[2023-05-11 20:12] LABS: Creatinine Urine 147.4 mg/dL
[2023-05-11 20:47] LABS: MALB Creatinine Ratio 14.6 mg/g (0-30); Microalbumin Urine Random 21.5 mg/L (0-16.7)
[2023-05-11 23:29] LABS: Hemoglobin A1C 7.4 % (<5.7)
== END 2023-05-11 14:28 | disposition home or self-care (01) ==
LOC: ANHBWCLAB 14:29
PROVIDERS: PCP Family Medicine; Visit Provider Family Medicine
DX: E11.9 Type 2 diabetes mellitus without complications (principal)
CPT/HCPCS: 36415; 81003; 82043; 83036

== ENCOUNTER 2023-05-20 18:33 | Emergency (ER) | payer MEDICARE, SELFPAY ==
[2023-05-20] VITALS (15 sets, daily range): BP systolic 117–134; BP diastolic 68–103; PULSE 65–96; RESP 14–16; TEMP 36.4; O2SAT 97–100
[2023-05-20 18:47] LABS: Glucose Point of Care 342 mg/dl (65-105)
--- NOTE | 2023-05-20 20:16 | PC.NURSE ---
Pt c/o dizziness while walking. Denies any additional symptoms.
--- NOTE | 2023-05-20 20:43 | ED.RECABL ---
HPI - Recheck/Abnormal Lab/Rx General Chief Complaint: Recheck/Abnormal Lab/Rx Stated Complaint: ELEVATED BLOOD SUGAR Time Seen by Provider: 05/20/23 19:09 History of Present Illness HPI narrative: Patient is an 87-year-old male with a history of diabetes, hyperlipidemia, hypertension, GERD presenting with high blood sugar. Patient's son is at bedside and helps with the history. States that he recently saw his PCP and his diabetes medications were changed. Unfortunately, his blood sugar continues to be elevated in the 300s. They called his PCP today who was supposed to send in for insulin but then never did. Patient's son states that his sugars were in the 300 and wanted to come in for evaluation as his insulin was not ordered. Patient currently states that he feels well. Denies any pain. No nausea or vomiting. Does report intermittent dysuria. Related Data Home Medications Medication Instructions Recorded Confirmed Lactobacillus 1 cap PO DAILY 05/15/22 03/11/23 acidophilus-Bifidobac.animalis 2.5 billion cell capsule (Daily Probiotic) cholecalciferol (vitamin D3) 50 50 mcg PO DAILY 05/15/22 03/11/23 mcg (2,000 unit) tablet (Vitamin D3) ferrous sulfate 325 mg (65 mg 325 mg PO DAILY 05/15/22 03/11/23 iron) tablet psyllium husk 0.4 gram capsule 0.4 g PO DAILY 05/15/22 03/11/23 (Metamucil) solifenacin 5 mg tablet 5 mg PO DAILY 06/24/22 03/11/23 Allergies Allergy/AdvReac Type Severity Reaction Status Date / Time No Known Allergies Allergy Verified 05/14/23 11:44 Review of Systems Review of Systems: All systems reviewed & are unremarkable except as noted in HPI and below [facility] Past Medical History Medical History Anemia Diabetes History of prostate cancer HTN (hypertension) Vitamin D3 deficiency Social History Social History Smoking status: Never smoker Alcohol intake: never Substance use: never Substance use type: does not use Lack of Transportation: No Lack of Food: Never True Current Housing: I Have Housing Concerned About Future Housing: No Difficulty Paying Gas/Electric Bills: No Difficulty Paying for Meds: No Currently Unemployed: No Education: Bachelor's Degree Difficulty w/ Childcare or Family Care: No Living arrangements: with family Spiritual care concerns: No Exam Narrative: GENERAL: Elderly male lying in bed in no acute distress, well appearing, pleasant and cooperative HEAD: Normocephalic, atraumatic. EYES: PERRLA and EOMI. ENT: Mucous membranes moist. NECK: Supple. CHEST: Clear to auscultation. No respiratory distress. HEART: Regular rate and rhythm ABDOMEN: Soft, nontender, nondistended EXTREMITIES: Normal range of motion. No edema. SKIN: Warm, dry, no rash. NEURO: No focal deficits. Alert and oriented x3. PSYCH: Normal mood and affect. Course Vital Signs Vital signs: Vital Signs Temperature 97.6 F 05/20/23 18:38 Pulse Rate 96 05/20/23 18:38 Respiratory Rate 16 05/20/23 18:38 Blood Pressure 132/77 05/20/23 18:38 Pulse Oximetry 100 05/20/23 18:38 Oxygen Delivery Room Air 05/20/23 18:38 Temperature 97.6 F 05/20/23 18:38 Pulse Rate 65 05/20/23 22:31 Respiratory Rate 14 05/20/23 22:31 Blood Pressure 120/71 05/20/23 22:31 Pulse Oximetry 98 05/20/23 22:31 Oxygen Delivery Room Air 05/20/23 18:38 MDM - Recheck/Abnormal Lab/Rx MDM Narrative Medical decision making narrative: 87-year-old male presenting with hyperglycemia. Vitals stable. Exam remarkable for the above. Glucose here is 342. Plan for basic labs, UA, fluids, subcu insulin. Blood work with glucose of 258. No evidence of DKA. Remainder of blood work is unremarkable. UA not indicative of infection. Patient given fluids and a dose of insulin and his repeat glucose is in the 160s. Feel he is safe f
[2023-05-20 20:55] LABS: Appearance Urine Clear (Clear); Bacteria Urine None Seen /hpf; Bilirubin Urine Negative (Negative); Blood Urine 2+ (Negative); Color Urine Yellow (Yellow); Glucose Urine UA 3+ mg/dL (Negative); Ketones Urine Negative (Negative); Leukocyte Esterase Ur Negative LEU/UL (Negative); Nitrate Urine Negative (Negative); Non Pathogenic Casts 0-2; Protein Urine Negative (Negative); Specific Grav Ur 1.028 (1.001-1.035); Squamous Epithelial Cell Urine None seen /hpf (Few); Urobilinogen Urine 0.2 mg/dL (<2.0); WBC Urine 0-5 /hpf; pH Urine 5.5 (5.0-9.0)
[2023-05-20 20:57] LABS: Add Urine Microscopic? YES
[2023-05-20] MEDS: INSULIN HUMAN REGULAR (*BKC) 100 UNITS/ML 10 UNITS SUB-Q (21:00)
[2023-05-20] MEDS: SODIUM CHLORIDE 0.9% IV 1,000 ML 999 ML IV CONT (21:01)
[2023-05-20 21:10] LABS: Basophils Absolute Auto 0.1 K/mm3 (0.0-0.1); Basophils Percent Auto 1.3 % (0.2-1.2); Eosinophils Absolute Auto 0.3 K/mm3 (0-0.3); Eosinophils Percent Auto 6.3 % (0-4.4); Hematocrit 31.4 % (42.0-52.0); Hemoglobin 10.3 g/dL (14.0-18.0); Lymphocytes Absolute Auto 1.61 K/mm3 (0.9-3.2); Lymphocytes Percent Auto 34.8 % (18.3-44.2); Mean Corpuscular HGB Conc 32.8 g/dl (32-36); Mean Corpuscular Hemoglobin 32.8 pg (26-34); Mean Platelet Volume 10.7 fl (7.4-10.4); Monocytes Absolute Auto 0.4 K/mm3 (0.1-0.6); Monocytes Percent Auto 9.1 % (2.6-8.5); Neutrophils Absolute Auto 2.3 K/mm3 (1.3-6.7); Neutrophils Percent Auto 48.5 % (45.5-73.1); Platelet Count Result 149 k/mm3 (150-375); Red Blood Count 3.14 M/mm3 (4.6-6.20); Red Cell Distribution Width 15.9 % (11.5-14.5); White Blood Count 4.6 K/mm3 (4.5-10.0)
[2023-05-20 21:23] LABS: Alanine Aminotransferase 21 U/L (6-50); Albumin Level 3.6 g/dL (3.5-5.1); Alkaline Phosphatase 98 U/L (38-126); Anion Gap 5 mmol/L (8-16); Aspartate Amino Transferase 38 U/L (17-59); Bilirubin,Total 0.6 mg/dL (0.2-1.3); Blood Urea Nitrogen 36 mg/dL (9-20); Calcium 9.9 mg/dL (8.4-10.2); Carbon Dioxide 27 mmol/L (22-30); Chloride 103 mmol/L (98-107); Estimated CRCL calculation 27 ml/min; Estimated Glomerular Filt Rate 57; Glucose 258 mg/dL (65-110); Sodium 135 mmol/L (137-145)
[2023-05-20 22:17] LABS: Glucose Point of Care 169 mg/dl (65-105)
== END 2023-05-20 22:50 | disposition home or self-care (01) ==
PROVIDERS: Emergency Provider Emergency Medicine; PCP Family Medicine
DX: E11.65 Type 2 diabetes mellitus with hyperglycemia (principal); I10 Essential (primary) hypertension; E78.5 Hyperlipidemia, unspecified; E55.9 Vitamin D deficiency, unspecified; K21.9 Gastro-esophageal reflux disease without esophagitis; Z85.46 Personal history of malignant neoplasm of prostate; Z79.84 Long term (current) use of oral hypoglycemic drugs; Z79.4 Long term (current) use of insulin
CPT/HCPCS: 36415; 80053; 81001; 82948; 85025; 96360; 96361; 99283; J1815; J7030

== ENCOUNTER 2023-08-26 07:28 | Outpatient (RCR) | payer MEDICARE, SELFPAY ==
[2023-08-12 13:30] VITALS: BMI 20.5
== END 2023-10-27 08:02 | disposition home or self-care (01) ==
LOC: ANHWOC 07:28
PROVIDERS: PCP Nurse Practitioner Adult Health; Visit Provider Family Medicine
DX: S09.90XD Unspecified injury of head, subsequent encounter (principal); T14.8XXD Other injury of unspecified body region, subsequent encounter
CPT/HCPCS: 99212; 99213; A9270; G0463

== ENCOUNTER 2023-11-20 14:35 | Outpatient (CLI) | payer MEDICARE, SELFPAY ==
[2023-11-20 15:18] LABS: Cholesterol 138 mg/dL (0-200); HDL Direct 34 mg/dL; Triglycerides 354 mg/dL (<150)
[2023-11-20 15:29] LABS: LDL Cholesterol Direct 31 mg/dL
== END 2023-11-20 14:36 | disposition home or self-care (01) ==
PROVIDERS: PCP Nurse Practitioner Adult Health; Visit Provider Internal Medicine Cardiovascular Disease
DX: E78.5 Hyperlipidemia, unspecified (principal)
CPT/HCPCS: 36415; 80061

== ENCOUNTER 2023-12-21 15:34 | Outpatient (CLI) | payer MEDICARE, SELFPAY ==
[2023-12-21 19:55] LABS: Prostate Specific Antigen < 0.1 ng/mL (< OR = 4.0)
== END 2023-12-21 15:35 | disposition home or self-care (01) ==
PROVIDERS: PCP Nurse Practitioner Adult Health; Visit Provider Family Medicine
DX: Z12.5 Encounter for screening for malignant neoplasm of prostate (principal); Z85.46 Personal history of malignant neoplasm of prostate
CPT/HCPCS: 36415; 84153; G0103

== ENCOUNTER 2023-12-24 07:56 | Outpatient (RCR) | payer MEDICARE, SELFPAY | END 2024-03-23 15:09 | disposition home or self-care (01) | LOC: ANHWOC 07:56 | PROVIDERS: PCP Family Medicine; Visit Provider Family Medicine | DX: S09.90XA Unspecified injury of head, initial encounter (principal) | CPT/HCPCS: 99214; A9270; G0463 ==

== ENCOUNTER 2024-02-15 02:35 | Emergency (ER) | payer MEDICARE, SELFPAY ==
--- NOTE | ~2024-02-15 | CT_ITS ---
Noncontrast CT scan of the cervical spine Technique: Multiple contiguous axial [address] images of the cervical spine were obtained and rec onstructed in 2D sagittal and coronal planes on the acquisition scanner. Dose reduction technique was used on this scan by utilizing automated exposure control, adjustment of the mA and/or kV according to patient size. The dose-length product (DLP) was 192.54 mGy-cm. Clinical History: Pain Findings: No fractures or dislocations. There is moderate to advanced degenerative disc narrowing at C5-C6 and C6-C7. There is facet arthropathy throughout the cervical spine. There is right neural for aminal narrowing at C2-C3. There is right neural foraminal narrowing at C3-C4. Probable mild bilatera l neural foraminal narrowing at C4-C5 with mild canal stenosis. There is bilateral neural foraminal n arrowing at C5-C6 with moderate canal stenosis and probable element of cord compression. There is dylon ateral neural foraminal narrowing at C6-C7, probable mild canal stenosis. No prevertebral soft tissue swelling. There is probable chronic interstitial changes lung apices. Impression: No fracture or subluxation of the cervical spine. Degenerative spondylosis, as above. Reviewed, dictated and finalized at location . Impression: No fracture or subluxation of the cervical spine. Degenerative spondylosis, as above.
--- NOTE | ~2024-02-15 | XR_ITS ---
AP view of the pelvis Clinical history: Pain Findings: No acute fracture or dislocation is seen. Osseous alignment is anatomic. Bilateral hip and SI joint spaces are preserved. Soft tissues are unremarkable. Impression: No significant abnormality is seen. Reviewed, dictated and finalized at location M. Impression: No significant abnormality is seen.
--- NOTE | ~2024-02-15 | XR_ITS ---
Left Knee Technique: AP, lateral, and oblique views were obtained. Clinical History: Status post fall Findings: No fracture or dislocation is seen. Osseous alignment is anatomic. Joint spaces are preserv ed without degenerative or erosive change. Soft tissues are unremarkable. No joint effusion is seen. Impression: Unremarkable left knee radiographs. Reviewed, dictated and finalized at location . Impression: Unremarkable left knee radiographs.
--- NOTE | ~2024-02-15 | CT_ITS ---
CT head without contrast Indication: Status post fall COMPARISON: 01/03/2023 Technique: Serial scans were obtained through the brain without the administration of contrast. Dose reduction technique was used on this scan by utilizing automated exposure control and iterative recon struction technique. The dose-length product (DLP) was 681.00 mGy-cm. Findings: There is no evidence of intracranial hemorrhage, mass lesion, or acute infarct. The ventri cles and subarachnoid spaces are dilated, consistent with moderate atrophy. There is no evidence of edema, mass effect or midline shift. There is left maxillary sinus disease. The remaining visualize d paranasal sinuses and mastoid air cells are clear. Impression: No intracranial hemorrhage, mass, or acute infarct. Moderate generalized atrophy. Left maxillary sinus disease. Reviewed, dictated and finalized at location . Impression: No intracranial hemorrhage, mass, or acute infarct. Moderate generalized atrophy. Left maxillary sinus disease.
[2024-02-15 02:33] VITALS: BP 125/69; PULSE 101; RESP 21; TEMP 36.3; O2SAT 98
[2024-02-15 02:45] VITALS: BP 107/80; PULSE 100; RESP 25; O2SAT 97
--- NOTE | 2024-02-15 02:52 | ECG_ITS ---
Test Date: 2024-02-15 02:59:49 Measurements Intervals [place] Rate: 97 P: 36 AK: 137 QRS: 6 QRSD: 84 T: -5 QT: 334 QTc: 426 Interpretive Statements SINUS RHYTHM WITH OCCASIONAL SUPRAVENTRICULAR PREMATURE COMPLEXES BORDERLINE ST-T WAVE ABNORMALITY- INFERIOR LEADS BASELINE ARTIFACT- I, II, AVR BORDERLINE ECG No previous ECG available for comparison Electronically Signed On 02-15-2024 06:17:19 CDT by Josef Mccarthy D.O.
--- NOTE | 2024-02-15 02:54 | ED.FALL ---
HPI - Fall General Chief Complaint: Fall Stated Complaint: fall Time Seen by Provider: 02/15/24 02:39 History of Present Illness HPI Narrative: This is an 88-year-old male with a past medical history significant for hypertension, hyperlipidemia, diabetes. Today he sustained a ground level fall in his bathroom. Patient states that he was cleaning his dentures when he suddenly felt like he was going to fall. He fell onto his knees forward and struck his left knee on the on tile. He states he struck the left side of his head against the low counter but did not lose consciousness. Does not have any history of blood thinner use or seizure disorder. States he remembers the entirety of the episode but states he felt too weak to get up on his own so he laid there on the ground for 2 hours until his [id number]-zf-mav was able to find him. He denies any chest pain, shortness a brother, nausea, vomiting, headache, vision changes, abdominal pain, back pain, weakness fatigue presently. He is normally very ambulatory and independent and still drives or vehicles. His daughter is present for collateral information and corroborates the story that he is otherwise very independent but has been having falling episodes lately without any significant trauma. He did not take anything for analgesia prior to arrival. Was otherwise in his normal state of health denies any infectious or other symptoms. Related Data Home Medications Medication Instructions Recorded Confirmed Lactobacillus 1 cap PO DAILY 05/15/22 11/20/23 acidophilus-Bifidobac.animalis 2.5 billion cell capsule (Daily Probiotic) cholecalciferol (vitamin D3) 50 50 mcg PO DAILY 05/15/22 11/20/23 mcg (2,000 unit) tablet (Vitamin D3) ferrous sulfate 325 mg (65 mg 325 mg PO DAILY 05/15/22 11/20/23 iron) tablet psyllium husk 0.4 gram capsule 0.4 g PO DAILY 05/15/22 11/20/23 (Metamucil) Allergies Allergy/AdvReac Type Severity Reaction Status Date / Time No Known Allergies Allergy Verified 12/21/23 15:00 Review of Systems Review of Systems: As reviewed above in HPI [facility] Past Medical History Medical History Anemia Diabetes History of prostate cancer HTN (hypertension) Vitamin D3 deficiency Social History Social History Smoking status: Never smoker Alcohol intake: never Substance use: never Substance use type: does not use Do You Feel Safe in your Home?: Yes Lack of Transportation: No Lack of Food: Never True Current Housing: I Have Housing Concerned About Future Housing: No Difficulty Paying Gas/Electric Bills: No Difficulty Paying for Meds: No Currently Unemployed: No Education: Bachelor's Degree Difficulty w/ Childcare or Family Care: No Living arrangements: with family Spiritual care concerns: No Exam Narrative: GENERAL: [Well-appearing, well-nourished, and in no acute distress.] HEAD: [Normocephalic, atraumatic.] EYES: [PERRLA and EOMI.] Pupils are 2 mm and reactive ENT: Nares clear, no rhinorrhea or epistaxis. Mucous membranes moist. NECK: Supple. No cervical spinal tenderness. Full range of motion of the head neck. CHEST: [Clear to auscultation. No respiratory distress.] HEART: [Regular rate and rhythm]. No murmur heard. [Normal peripheral pulses.] ABDOMEN: [Soft, nondistended], [nontender], [No rigidity or guarding] EXTREMITIES: Normal range of motion. [No edema.] There is a mild abrasion to the patella on the left lower extremity but no step-offs deformities. Full range of motion with flexion extension of bilateral lower extremities. Strength full. No step-offs deformities over the cervical thoracic or lumbar spine. SKIN: Warm, dry, no rash. NEURO: [No focal deficits]. Alert and oriented [x3.] PSYCH: [Normal mood and affect.] Course Vital Signs Vital signs: Vital Sig
[2024-02-15 03:00] VITALS: BP 112/74; PULSE 98; RESP 17; O2SAT 99
[2024-02-15] MEDS: ACETAMINOPHEN 325 MG TABLET 650 MG PO (03:01)
[2024-02-15] MEDS: SODIUM CHLORIDE 0.9% IV 1,000 ML 999 ML IV CONT (03:01)
[2024-02-15 03:06] LABS: Glucose Point of Care 150 mg/dl (65-105)
[2024-02-15 03:18] LABS: Basophils Percent Auto 0.5 % (0.2-1.2); Eosinophils Percent Auto 0.5 % (0-4.4); Hematocrit 30.5 % (42.0-52.0); Hemoglobin 10.5 g/dL (14.0-18.0); Immature Granulocyte Absolute 0.02 K/mm3 (0.00-0.031); Immature Granulocyte Percent A 0.3 % (0-0.5); Lymphocytes Percent Auto 6.8 % (18.3-44.2); Mean Corpuscular HGB Conc 34.4 g/dl (32-36); Mean Corpuscular Hemoglobin 33.9 pg (26-34); Mean Corpuscular Volume 98.4 fl (80-100); Mean Platelet Volume 10.6 fl (7.4-10.4); Monocytes Absolute Auto 0.4 K/mm3 (0.1-0.6); Monocytes Percent Auto 6.6 % (2.6-8.5); Neutrophils Absolute Auto 5.1 K/mm3 (1.3-6.7); Neutrophils Percent Auto 85.3 % (45.5-73.1); Platelet Count Result 145 k/mm3 (150-375); Red Cell Distribution Width 15.7 % (11.5-14.5); White Blood Count 5.9 K/mm3 (4.5-10.0)
[2024-02-15 03:26] LABS: Creatine Kinase 167 U/L (55-170)
[2024-02-15 03:27] LABS: INR 1.3; Prothrombin Time 16.5 Seconds (11.1-14.7)
[2024-02-15 03:31] LABS: Alanine Aminotransferase 24 U/L (6-50); Albumin Level 3.2 g/dL (3.5-5.1); Alkaline Phosphatase 76 U/L (38-126); Anion Gap 9 mmol/L (4-12); Aspartate Amino Transferase 47 U/L (17-59); Bilirubin,Total 1.5 mg/dL (0.2-1.3); Blood Urea Nitrogen 34 mg/dL (9-20); Calcium 9.3 mg/dL (8.4-10.2); Carbon Dioxide 23 mmol/L (22-30); Chloride 103 mmol/L (98-107); Estimated CRCL calculation 30 ml/min; Estimated Glomerular Filt Rate > 60; Glucose 145 mg/dL (65-110); Magnesium 1.8 mg/dL (1.6-2.3); Potassium 3.6 mmol/L (3.4-5.0); Sodium 135 mmol/L (137-145)
[2024-02-15 03:43] LABS: Troponin I < 0.012 ng/mL (0.000-0.034)
[2024-02-15 03:45] VITALS: PULSE 86; RESP 13; O2SAT 99
== END 2024-02-15 04:38 | disposition home or self-care (01) ==
PROVIDERS: Emergency Provider Student in an Organized Health Care Education/Training Program; PCP Family Medicine
DX: S09.90XA Unspecified injury of head, initial encounter (principal); S80.212A Abrasion, left knee, initial encounter; I10 Essential (primary) hypertension; E78.5 Hyperlipidemia, unspecified; E11.9 Type 2 diabetes mellitus without complications; E55.9 Vitamin D deficiency, unspecified; D64.9 Anemia, unspecified; Z85.46 Personal history of malignant neoplasm of prostate; Z79.84 Long term (current) use of oral hypoglycemic drugs; Z79.85 Long-term (current) use of injectable non-insulin antidiabetic drugs; Z79.899 Other long term (current) drug therapy; I49.1 Atrial premature depolarization; R94.31 Abnormal electrocardiogram [ECG] [EKG]; M47.812 Spondylosis without myelopathy or radiculopathy, cervical region; J32.0 Chronic maxillary sinusitis; W18.39XA Other fall on same level, initial encounter
CPT/HCPCS: 36415; 70450; 72125; 72170; 73562; 80053; 82550; 82948; 83735; 84484; 85025; 85610; 85730; 93005; 96360; 99284; A9270; J7030

== ENCOUNTER 2024-05-11 07:45 | Outpatient (RCR) | payer MEDICARE, SELFPAY ==
[2024-04-27 08:39] VITALS: BMI 19.3
== END 2024-07-26 23:59 | disposition home or self-care (01) ==
LOC: ANHWOC 07:45
PROVIDERS: PCP Family Medicine; Visit Provider Family Medicine
DX: L08.89 Other specified local infections of the skin and subcutaneous tissue (principal); S09.90XA Unspecified injury of head, initial encounter
CPT/HCPCS: 99212; 99213; A9270; G0463

== ENCOUNTER 2024-05-16 12:38 | Inpatient (IN) | payer MEDICARE, MEDICAID, SELFPAY ==
[2024-05-16] VITALS (35 sets, daily range): BP systolic 83–131; BP diastolic 53–76; PULSE 80–104; RESP 7–33; TEMP 36.3–36.9; O2SAT 94–100; BMI 20.4
--- NOTE | ~2024-05-16 | CT_ITS ---
EXAMINATION: CT chest abdomen pelvis w con DATE: 05/16/2024 15:50 INDICATION: Sepsis. Chest and abdominal pain. TECHNIQUE: Computed tomography (CT) of the chest, abdomen, and pelvis was performed with 100 mL Omnip aque 350 intravenous contrast. Automated exposure control and iterative reconstruction technique were employed. The dose-length product was 359.88 mGy-cm. COMPARISON: Chest single view 05/16/2024 FINDINGS: CHEST CT: There is widespread septal thickening in the lungs with a peripheral predominance associated with sandra undglass opacities and small airspace opacities. There is peripheral honeycombing bilaterally. No ple ural effusion. The heart size is normal. There are coronary artery calcifications. No pericardial eff usion. There is severe thoracic spondylosis. There is mild chronic anterior wedging of T12 vertebral body. ABDOMEN/PELVIS CT: There are cysts in the liver measuring up to 2.0 cm. There are changes of cholecystectomy. There is a n 8 mm cyst in the spleen. There are calcifications in the pancreas, consistent with chronic pancreat itis. There is a 2.6 cm cyst in the tail of pancreas, likely a pseudocyst. The adrenal glands are nor mal. There is an 11 mm cyst in right kidney. There is moderate left hydronephrosis and hydroureter. T here is a 5 mm stone in distal left ureter. There is a 3 mm stone in the bladder. The prostate is mil dly enlarged. There is diverticulosis of the colon without evidence of diverticulitis. There are no d ilated loops of bowel. The appendix is not visualized. There are no pathologically enlarged lymph nod es. There is no free intraperitoneal fluid. There are changes of left inguinal hernia repair. There i s mild lumbar spondylosis. IMPRESSION: 1. 5 mm stone in distal left ureter with moderate left hydronephrosis and hydroureter. 2. 3 mm bladder stone. 3. 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 Reviewed, dictated and finalized at location B. IMPRESSION: 1. 5 mm stone in distal left ureter with moderate left hydronephrosis and hydro ureter. 2. 3 mm bladder stone. 3. Chronic interstitial lung disease in a pattern of usual interstitial pneumon ia (UIP).
--- NOTE | ~2024-05-16 | CT_ITS ---
EXAMINATION: CT brain wo con DATE: 05/16/2024 13:41 INDICATION: Weakness. TECHNIQUE: Computed tomography (CT) of the head was performed without intravenous contrast. The mA wa s adjusted according to patient size. Iterative reconstruction technique was employed. The dose-lengt h product was 681.00 mGy-cm. COMPARISON: Head CT 02/15/2024 FINDINGS: There are scattered areas of low attenuation in the cerebral white matter, which is within normal limits for the patient's age. There is no intracranial hemorrhage, acute infarction, or abnorm al intracranial mass lesion. There is chronic encephalomalacia in right frontal and temporal lobes. T he ventricles are normal in size. There is mucosal thickening in the paranasal sinuses. The maxillary sinuses are small with thickening and sclerotic roper, consistent with chronic sinusitis. The mastoi d air cells are normal. There are likely changes of ocular lens replacement surgeries. IMPRESSION: 1. 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 Reviewed, dictated and finalized at location B.
--- NOTE | ~2024-05-16 | XR_ITS ---
XR chest port-a-cath/central Ordering provider: Lara Miranda MD History: 88 years Male with . CENTRAL LINE PLACEMENT . Comparison: May 16, 2024 FINDINGS: MEDIASTINUM: The cardiac silhouette is slightly enlarged. Congestive nic. Right central line with th e tip overlying the right atrium. LUNGS: No effusions or pneumothorax. Opacification in the right upper and lower lobe and left lower l obe is seen suggestive of pneumonia. Underlying fibrotic changes seen bilaterally. Interstitial thick ening is noted bilaterally. OTHER: No free air under the diaphragm. Degenerative changes of the spine. IMPRESSION: Cardiomegaly with cardiac decompensation and pulmonary edema. Pneumonia in the right upper and lower lobe and left lower lobe. Underlying fibrotic changes. Reviewed, dictated and finalized at location A.
--- NOTE | ~2024-05-16 | XR_ITS ---
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 COMPARISON: None available. FINDINGS: Osteopenia. Left ureteral stent. Left-sided hernia mesh soft tissue anchors. Atherosclerot ic calcifications. Degenerative changes in the bilateral hips and right knee. No fracture or dislocat ion. No lytic or blastic lesion. IMPRESSION: No acute osseous finding in the right hip or right femur. Reviewed, dictated and finalized at location K. IMPRESSION: No acute osseous finding in the right hip or right femur.
--- NOTE | ~2024-05-16 | XR_ITS ---
EXAMINATION: XR retrograde pyelo w/stent LT DATE: 05/16/2024 18:17 INDICATION: Left ureteral stone. TECHNIQUE: 6 intraoperative fluoroscopic views of the abdomen and pelvis were obtained. I was not pre sent. Fluoroscopy exposure time was 24 seconds. COMPARISON: CT abdomen and pelvis 05/16/2024 FINDINGS: There is surgical clips from left inguinal hernia repair. The left-sided retrograde pyelogr am demonstrates mild hydronephrosis. The final images demonstrate a left internal ureteral stent in e xpected position. IMPRESSION: 1. Mild left hydronephrosis. Left internal ureteral stent in expected position. Reviewed, dictated and finalized at location B.
--- NOTE | ~2024-05-16 | XR_ITS ---
EXAMINATION: XR chest 1V DATE: 05/16/2024 13:49 INDICATION: Weakness. Low blood pressure. TECHNIQUE: A single frontal view of the chest was obtained. COMPARISON: Cervical spine CT 02/15/2024 FINDINGS: There is a diffuse interstitial pattern in the lungs. There are mild airspace opacities in left mid lung zone. No pleural effusion or pneumothorax. The heart size is normal. Surgical clips in the right upper quadrant are likely from cholecystectomy. IMPRESSION: 1. Diffuse lung disease, consistent with chronic interstitial lung disease. Superimposed pneumonia ca nnot be excluded. Reviewed, dictated and finalized at location B. IMPRESSION: 1. Diffuse lung disease, consistent with chronic interstitial lung disease. Sup erimposed pneumonia cannot be excluded.
--- NOTE | ~2024-05-16 | XR_ITS ---
EXAMINATION: XR_[id number]_CR DATE: 05/19/2024 12:49 INDICATION: Right knee pain post fall TECHNIQUE: AP and crosstable lateral views of the right knee were obtained. COMPARISON: None. FINDINGS: Bone alignment is normal. There is a small linear flake like calcific density projecting over the int ercondylar eminence without a definitive donor site but given location nonetheless concerning for avu lsion fracture fragment either of a cruciate ligament or less likely meniscal root. No other fracture s identified. Small right knee joint effusion. Scattered vascular calcifications. Soft tissues are ot herwise unremarkable. IMPRESSION: 1. Small linear calcific density projecting over the intercondylar eminence suspicious for avulsion f racture fragment either of the cruciate ligaments or less likely a meniscal root. Could consider MRI for more definitive determination as clinically indicated. Reviewed, dictated and finalized at location A. IMPRESSION: 1. Small linear calcific density projecting over the intercondylar eminence jose picious for avulsion fracture fragment either of the cruciate ligaments or less likely a meniscal root. Could consider MRI for more definitive determination a s clinically indicated.
--- NOTE | ~2024-05-16 | MR_ITS ---
EXAMINATION: MR knee RT wo con DATE: 05/20/2024 11:09 INDICATION: Right knee pain. TECHNIQUE: Magnetic resonance imaging (MRI) of the right knee was performed without intravenous contr ast. Sequences included axial PD-weighted FS FSE, coronal PD-weighted FSE and PD-weighted FS FSE, sag ittal PD-weighted FSE, and sagittal T2-weighted FS FSE. COMPARISON: Right knee radiographs 05/09/2024 FINDINGS: Medial compartment: There is an undersurface horizontal tear of body and posterior horn of medial meniscus. There is cart ilage surface irregularity of tibial condyle and femoral condyle. Lateral compartment: Lateral meniscus is normal. There is cartilage surface irregularity of femoral condyle. Tibial cartil age is normal. Patellofemoral compartment: There is cartilage surface irregularity of patella and trochlea. Ligaments and tendons: The anterior and posterior cruciate ligaments are normal. Medial collateral ligament and lateral jean-pierre ateral ligament complex are intact. The patellar tendon is normal. Fluid: There is a small knee joint effusion. There is widespread subcutaneous edema. IMPRESSION: 1. No fracture. 2. Mild tricompartmental chondrosis. 3. Tear of medial meniscus. 4. Small knee joint effusion. Reviewed, dictated and finalized at location B.
--- NOTE | 2024-05-16 12:45 | ECG_ITS ---
Test Date: 2024-05-16 12:59:46 Measurements Intervals [place] Rate: 99 P: 49 DE: 135 QRS: 1 QRSD: 86 T: 26 QT: 343 QTc: 440 Interpretive Statements SINUS RHYTHM Compared to ECG 02/15/2024 02:59:49 No significant changes Electronically Signed On 05-16-2024 13:32:07 CDT by Bon Lepe M.D.
[2024-05-16] MEDS: DEXTROSE 50% 25 GM/50 ML SYRINGE (13:02)
--- NOTE | 2024-05-16 13:07 | PC.NURSE ---
reg diet dinner tray ordered
[2024-05-16 13:12] LABS: Hematocrit 26.3 % (42.0-52.0); Mean Corpuscular HGB Conc 34.2 g/dl (32-36); Mean Corpuscular Hemoglobin 34.1 pg (26-34); Mean Corpuscular Volume 99.6 fl (80-100); Mean Platelet Volume 10.4 fl (7.4-10.4); Platelet Count Result 171 k/mm3 (150-375); Red Blood Count 2.64 M/mm3 (4.6-6.20); Red Cell Distribution Width 17.7 % (11.5-14.5); White Blood Count 21.2 K/mm3 (4.5-10.0)
[2024-05-16 13:16] LABS: Glucose Point of Care 40 mg/dl (65-105)
[2024-05-16 13:23] LABS: INR 1.3; Prothrombin Time 16.4 Seconds (11.1-14.7)
[2024-05-16 13:26] LABS: Alkaline Phosphatase 97 U/L (38-126); Anion Gap 11 mmol/L (4-12); Aspartate Amino Transferase 106 U/L (17-59); Bilirubin,Total 1.4 mg/dL (0.2-1.3); Blood Urea Nitrogen 36 mg/dL (9-20); Calcium 8.6 mg/dL (8.4-10.2); Carbon Dioxide 25 mmol/L (22-30); Chloride 104 mmol/L (98-107); Estimated CRCL calculation 29 ml/min; Estimated Glomerular Filt Rate > 60; Glucose 42 mg/dL (65-110); Potassium 3.3 mmol/L (3.4-5.0); Sodium 140 mmol/L (137-145)
[2024-05-16 13:27] LABS: Glucose Point of Care 176 mg/dl (65-105)
[2024-05-16 13:35] LABS: Anisocytosis 1+; Band Neutrophils Percent 10 % (0-6); Hypochromasia 2+; Lymphocytes Absolute Manual 0.42 K/mm3 (1.1-4.5); Lymphocytes Percent Manual 2 % (18-44); Monocytes Absolute Manual 1.48 K/mm3 (0.1-0.90); Monocytes Percent Manual 7 % (3-9); Neutrophils Absolute Manual 19.29 K/mm3 (1.3-6.7); Neutrophils Percent Manual 81 % (46-73); Platelet Estimate Adequate (Adequate); Total Cells Counted 100
[2024-05-16 13:36] LABS: Schistocytes None Seen; Target Cells 1+
[2024-05-16 13:36] LABS: Alanine Aminotransferase 39 U/L (6-50)
[2024-05-16] MEDS: LACTATED RINGERS 1,000 ML 999 ML IV CONT (13:51)
--- NOTE | 2024-05-16 14:00 | PC.NURSE ---
Pt refused lunch tray.
--- NOTE | 2024-05-16 14:08 | ED.AMS ---
HPI - Altered Mental Status General Chief Complaint: Altered Mental Status Stated Complaint: ams Time Seen by Provider: 05/16/24 12:47 Source: patient, family, RN notes reviewed and old records reviewed Mode of arrival: EMS History of Present Illness HPI narrative: This is an 88 year old male with history of DM who presents for evaluation of weakness and hypoglycemia. Patient is accompanied by his daughter in law who states patient was found on the floor this morning around 6 am. They were able to get patient up off floor but he did not know how he got on the floor. PAtient continued to be weak this morning and he was confused. EMS found patient to have low glucose of 40. PAtient was given oral glucose by EMS and D50 in ER. He takes insulin and he states he did not eat today. He has not had insulin since yesterday. His records show that he takes glipizide as well. PAtient denies any headache, chest pain, sob, abdominal pain, nausea, vomiting or urinary issues. Related Data Home Medications Medication Instructions Recorded Confirmed Lactobacillus 1 cap PO DAILY 05/15/22 04/27/24 acidophilus-Bifidobac.animalis 2.5 billion cell capsule (Daily Probiotic) cholecalciferol (vitamin D3) 50 50 mcg PO DAILY 05/15/22 04/27/24 mcg (2,000 unit) tablet (Vitamin D3) ferrous sulfate 325 mg (65 mg 325 mg PO DAILY 05/15/22 04/27/24 iron) tablet psyllium husk 0.4 gram capsule 0.4 g PO DAILY 05/15/22 04/27/24 (Metamucil) Allergies Allergy/AdvReac Type Severity Reaction Status Date / Time No Known Allergies Allergy Verified 05/16/24 12:49 [facility] Past Medical History Medical History Anemia Diabetes History of prostate cancer HTN (hypertension) Vitamin D3 deficiency Social History Social History Smoking status: Never smoker Alcohol intake: never Substance use: never Substance use type: does not use Do You Feel Safe in your Home?: Yes Lack of Transportation: No Lack of Food: Never True Current Housing: I Have Housing Concerned About Future Housing: No Difficulty Paying Gas/Electric Bills: No Difficulty Paying for Meds: No Currently Unemployed: No Education: Bachelor's Degree Difficulty w/ Childcare or Family Care: No Living arrangements: with family Spiritual care concerns: No Exam Const: General: alert and ill appearing Orientation/consciousness: patient oriented x3 HENMT: Head: normal to inspection Mouth: Yes Normal oral and palatal mucosa present, Yes lip normal and Yes moist mucous membranes Eyes: Pupils: Equal, round and reactive pupils present EOM: EOMs intact bilaterally Resp: Effort & Inspection: normal respiratory effort Auscultation: clear to auscultation bilaterally Cardio: Rate: regular rate Rhythm: regular rhythm Heart sounds: Murmur heart sound present GI: GI Palp: Yes Soft to palpation, No Tenderness to palpation present (GI), No Guarding due to palpation present (GI) and No Rigid due to palpation Auscultation: normal bowel sounds Neuro: General: patient oriented x3, moves all extremities and CN's II-XI intact bilaterally Other: generalized weakness Extrem: General: no pedal edema Psych: Mental Status: mental status grossly normal Affect: normal affect Attitude: cooperative Course Reevaluation(s) Reevaluation #1: I Discussed with patient and his family that he is septic due to UTI And obstructing ureter stone. PAtient will need to go to OR. Dr. Argueta at bedside. They are agreeable to central line and OR. P Date: 05/16/24 Time: 16:00 Consultations Consultation #1: I spoke with Dr. Argueta. He states patient will be taken to OR by Dr. Bell Date: 05/16/24 Time: 16:13 Consultation #2: I spoke wit Dr. Laurent who accepts to ICU. He recommend treating with meropenem Date: 05/16/24 Time: 16:16 Consultation #3: I Spoke with Pat with hospital. She accepts patient to service. Date: 05/16/24 Time: 17:07 Vital Signs Vital signs: Vital Signs Temperature 97.4 F L 05/16/24 12:39 Pulse Rate 100 05/16/24 12:39 Respiratory Rate 18 05/16/24 12:39 Blood Pressure 99/62 L 05/16/24 12:39 Pulse Oximetry 100 05/16/24 12:39 Oxygen Delivery Room Air 05/16/24 12:39 Temperature 98.3 F 05/16/24 18:23 Pulse Rate 104 H 05/16/24 18:23 Respiratory Rate 22 H 05/16/24 18:23 Blood Pressure 98/55 L 05/16/24 18:23 Pulse Oximetry 95 05/16/24 18:23 Oxygen Delivery Room Air 05/16/24 12:39 Procedures Central Line Placement Right IJ: Central Line Date: 05/16/24 Central Line Time: 16:45 Discussed w/ the patient/family/POA,the placement of a central venous catheter, including its clinical necessity/indication & associated potential risks, benifits and alternatives.: Yes The patient/family/POA understand(s) and acknowledge(s) the need to proceed with central venous catheter insertion as an important element of the patient's clinical management.: Yes Time Out Performed: Yes Patient Placed on Monitor/Pulse Ox: Yes Max. Sterile Barrier Technique: Caps, large sterile sheet and hand hygiene Central Line Prep: 2% chlorhexidine scrub and sterile drapes applied Technique: seldinger Local Anesthetic: lidocaine 1% Amount of anesthesia used (mL): 2 Ultrasound Used for Placement: Yes Central Line Lumen Inserted: triple Post Procedure: sutured in place, good blood return, all ports aspirated, flushed, capped and sterile dressing applied Post Procedure X-Ray: tip of catheter in good position and no pneumothorax seen Patient Tolerated Procedure: well Complications: none MDM - Altered Mental Status MDM Narrative Medical decision making narrative: PAtient presents with weakness and hypoglycemia. CT brain ordered due to fall and labs. wbc elevated , lactic acid 4.7. BUN elevated. Given fluids 30 ml/kg but still blood pressure low. CT chest, abdomen to assess . CT shows obstructing stone so urology was called. PAtient to have central line placed for access and possible vasopressors. rocephin ordered initially and then electric sign wirer recommends meropenem. Differential Diagnosis Differential diagnosis: Likely altered mental status, dementia, hypoglycemia, hyponatremia, subarachnoid hemorrhage and sepsis Medical Records Attestation: I reviewed the patient's medical records. Lab Data Attestation: I reviewed the patient's lab results. 05/16/24 13:02 05/16/24 13:01 Labs: Lab Results 05/16/24 05/16/24 05/16/24 Range/Units 12:51 13:01 13:02 WBC 21.2 H (4.5-10.0) K/mm3 RBC 2.64 L (4.6-6.20) M/mm3 Hgb 9.0 L (14.0-18.0) g/dL Hct 26.3 L (42.0-52.0) % MCV 99.6 (80-100) fl MCH 34.1 H (26-34) pg MCHC 34.2 (32-36) g/dl RDW 17.7 H (11.5-14.5) % Plt Count 171 (150-375) k/mm3 MPV 10.4 (7.4-10.4) fl Immature Gran % (Auto) Not Reportable Neut % (Auto) Not Reportable Lymph % (Auto) Not Reportable [place] % (Auto) Not Reportable Eos % (Auto) Not Reportable Baso % (Auto) Not Reportable Lymph # (Auto) Not Reportable [place] # (Auto) Not Reportable Eos # (Auto) Not Reportable Baso # (Auto) Not Reportable Abs Immat Gran (auto) Not Reportable Absolute Neuts (auto) Not Reportable Absolute Nucleated RBC Not Reportable Total Counted 100 Neutrophils % (Manual) 81 H (46-73) % Band Neutrophils % 10 H (0-6) % Lymphocytes % (Manual) 2 L (18-44) % Monocytes % (Manual) 7 (3-9) % Nucleated RBC % Not Reportable Abs Neuts (Manual) 19.29 H (1.3-6.7) K/mm3 Abs Lymphs (Manual) 0.42 L (1.1-4.5) K/mm3 Abs Monocytes (Manual) 1.48 H (0.1-0.90) K/mm3 Platelet Estimate Adequate (Adequate) Hypochromasia 2+ Anisocytosis 1+ Target Cells 1+ Schistocytes None seen PT 16.4 H (11.1-14.7) Seconds INR 1.3 APTT 41.0 H (22.3-36.8) Seconds Sodium 140 (137-145) mmol/L Potassium 3.3 L (3.4-5.0) mmol/L Chloride 104 (98-107) mmol/L Carbon Dioxide 25 (22-30) mmol/L Anion Gap 11 (4-12) mmol/L BUN 36 H (9-20) mg/dL Creatinine 1.10 (0.7-1.3) mg/dL Estim Creat Clear Calc 29 ml/min Estimated GFR > 60 (59 - ) Glucose 42 L* (65-110) mg/dL POC Capillary Glucose 40 L* (65-105) mg/dl Lactic Acid (0.7-2.0) mmol/L Calcium 8.6 (8.4-10.2) mg/dL Magnesium (1.6-2.3) mg/dL Total Bilirubin 1.4 H (0.2-1.3) mg/dL AST 106 H (17-59) U/L ALT 39 (6-50) U/L Alkaline Phosphatase 97 (38-126) U/L Total Creatine Kinase (55-170) U/L Troponin I (0.000-0.034) ng/mL Total Protein 6.0 L (6.3-8.2) g/dL Albumin 3.0 L (3.5-5.1) g/dL Urine Color (Yellow) Urine Appearance (Clear) Urine pH (5.0-9.0) Ur Specific [place] (1.001-1.035) Urine Protein (Negative) mg/dL Urine Glucose (UA) (Negative) mg/dL Urine Ketones (Negative) mg/dL Ur Blood (Man) (Negative) Urine Nitrate (Negative) Urine Bilirubin (Negative) Urine Urobilinogen (<2.0) mg/dL Add Ur Microanalysis Leukocyte Esterase Rfl (Negative) MACO/UL Urine RBC (0-2) /hpf Urine WBC (0-3) /hpf Ur Squamous Epith Cells (Few) /hpf Urine Bacteria /hpf Urine Casts 05/16/24 05/16/24 05/16/24 Range/Units 13:23 13:51 15:16 WBC (4.5-10.0) K/mm3 RBC (4.6-6.20) M/mm3 Hgb (14.0-18.0) g/dL Hct (42.0-52.0) % MCV (80-100) fl MCH (26-34) pg MCHC (32-36) g/dl RDW (11.5-14.5) % Plt Count (150-375) k/mm3 MPV (7.4-10.4) fl Immature Gran % (Auto) Neut % (Auto) Lymph % (Auto) [place] % (Auto) Eos % (Auto) Baso % (Auto) Lymph # (Auto) [place] # (Auto) Eos # (Auto) Baso # (Auto) Abs Immat Gran (auto) Absolute Neuts (auto) Absolute Nucleated RBC Total Counted Neutrophils % (Manual) (46-73) % Band Neutrophils % (0-6) % Lymphocytes % (Manual) (18-44) % Monocytes % (Manual) (3-9) % Nucleated RBC % Abs Neuts (Manual) (1.3-6.7) K/mm3 Abs Lymphs (Manual) (1.1-4.5) K/mm3 Abs Monocytes (Manual) (0.1-0.90) K/mm3 Platelet Estimate (Adequate) Hypochromasia Anisocytosis Target Cells Schistocytes PT (11.1-14.7) Seconds INR APTT (22.3-36.8) Seconds Sodium (137-145) mmol/L Potassium (3.4-5.0) mmol/L Chloride (98-107) mmol/L Carbon Dioxide (22-30) mmol/L Anion Gap (4-12) mmol/L BUN (9-20) mg/dL Creatinine (0.7-1.3) mg/dL Estim Creat Clear Calc ml/min Estimated GFR (59 - ) Glucose (65-110) mg/dL POC Capillary Glucose 176 H (65-105) mg/dl Lactic Acid 4.7 H* (0.7-2.0) mmol/L Calcium (8.4-10.2) mg/dL Magnesium 1.6 (1.6-2.3) mg/dL Total Bilirubin (0.2-1.3) mg/dL AST (17-59) U/L ALT (6-50) U/L Alkaline Phosphatase (38-126) U/L Total Creatine Kinase 888 H (55-170) U/L Troponin I 0.064 H* (0.000-0.034) ng/mL Total Protein (6.3-8.2) g/dL Albumin (3.5-5.1) g/dL Urine Color Dark yellow (Yellow) Urine Appearance Turbid H (Clear) Urine pH 5.5 (5.0-9.0) Ur Specific [place] 1.017 (1.001-1.035) Urine Protein 2+ H (Negative) mg/dL Urine Glucose (UA) Negative (Negative) mg/dL Urine Ketones Trace H (Negative) mg/dL Ur Blood (Man) 2+ H (Negative) Urine Nitrate Negative (Negative) Urine Bilirubin Negative (Negative) Urine Urobilinogen 1.0 (<2.0) mg/dL Add Ur Microanalysis Reviewed Leukocyte Esterase Rfl 3+ H (Negative) MACO/UL Urine RBC 11-20 H (0-2) /hpf Urine WBC >100 H (0-3) /hpf Ur Squamous Epith Cells Few (Few) /hpf Urine Bacteria 4+ /hpf Urine Casts 6-10 05/16/24 Range/Units 16:10 WBC (4.5-10.0) K/mm3 RBC (4.6-6.20) M/mm3 Hgb (14.0-18.0) g/dL Hct (42.0-52.0) % MCV (80-100) fl MCH (26-34) pg MCHC (32-36) g/dl RDW (11.5-14.5) % Plt Count (150-375) k/mm3 MPV (7.4-10.4) fl Immature Gran % (Auto) Neut % (Auto) Lymph % (Auto) [place] % (Auto) Eos % (Auto) Baso % (Auto) Lymph # (Auto) [place] # (Auto) Eos # (Auto) Baso # (Auto) Abs Immat Gran (auto) Absolute Neuts (auto) Absolute Nucleated RBC Total Counted Neutrophils % (Manual) (46-73) % Band Neutrophils % (0-6) % Lymphocytes % (Manual) (18-44) % Monocytes % (Manual) (3-9) % Nucleated RBC % Abs Neuts (Manual) (1.3-6.7) K/mm3 Abs Lymphs (Manual) (1.1-4.5) K/mm3 Abs Monocytes (Manual) (0.1-0.90) K/mm3 Platelet Estimate (Adequate) Hypochromasia Anisocytosis Target Cells Schistocytes PT (11.1-14.7) Seconds INR APTT (22.3-36.8) Seconds Sodium (137-145) mmol/L Potassium (3.4-5.0) mmol/L Chloride (98-107) mmol/L Carbon Dioxide (22-30) mmol/L Anion Gap (4-12) mmol/L BUN (9-20) mg/dL Creatinine (0.7-1.3) mg/dL Estim Creat Clear Calc ml/min Estimated GFR (59 - ) Glucose (65-110) mg/dL POC Capillary Glucose 90 (65-105) mg/dl Lactic Acid (0.7-2.0) mmol/L Calcium (8.4-10.2) mg/dL Magnesium (1.6-2.3) mg/dL Total Bilirubin (0.2-1.3) mg/dL AST (17-59) U/L ALT (6-50) U/L Alkaline Phosphatase (38-126) U/L Total Creatine Kinase (55-170) U/L Troponin I (0.000-0.034) ng/mL Total Protein (6.3-8.2) g/dL Albumin (3.5-5.1) g/dL Urine Color (Yellow) Urine Appearance (Clear) Urine pH (5.0-9.0) Ur Specific [place] (1.001-1.035) Urine Protein (Negative) mg/dL Urine Glucose (UA) (Negative) mg/dL Urine Ketones (Negative) mg/dL Ur Blood (Man) (Negative) Urine Nitrate (Negative) Urine Bilirubin (Negative) Urine Urobilinogen (<2.0) mg/dL Add Ur Microanalysis Leukocyte Esterase Rfl (Negative) MACO/UL Urine RBC (0-2) /hpf Urine WBC (0-3) /hpf Ur Squamous Epith Cells (Few) /hpf Urine Bacteria /hpf Urine Casts Imaging Data Radiologist's impression: ITS Impressions Head CT 05/16/24 13:47 IMPRESSION: 1. 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 Chest X-Ray 05/16/24 13:50 IMPRESSION: 1. Diffuse lung disease, consistent with chronic interstitial lung disease. Superimposed pneumonia cannot be excluded. Chest/Abdomen/Pelvis CT 05/16/24 15:53 IMPRESSION: 1. 5 mm stone in distal left ureter with moderate left hydronephrosis and hydroureter. 2. 3 mm bladder stone. 3. 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 Chest X-Ray 05/16/24 17:25 IMPRESSION: Cardiomegaly with cardiac decompensation and pulmonary edema. Pneumonia in the right upper and lower lobe and left lower lobe. Underlying fibrotic changes. ECG Data EKG #1: Attestation: I personally reviewed and interpreted this ECG as follows: ECG completion date: 05/16/24 ECG completion time: 10:20 EKG Interpretation: normal rate (90), sinus rhythm, non-specific ST changes and NL axis Critical Care Time Critical Care Time Critical Care Time: Yes Total Critical Care Time: 45 Discharge Plan Discharge Clinical Impression: Ureteral stone, Hypoglycemia, Acute UTI Sepsis Qualifiers: Sepsis type: sepsis due to unspecified organism Patient Disposition: Still a Patient Condition: Critical
[2024-05-16 14:09] LABS: Creatine Kinase 888 U/L (55-170); Magnesium 1.6 mg/dL (1.6-2.3)
[2024-05-16 14:13] LABS: Lactic Acid Reflex 4.7 mmol/L (0.7-2.0)
[2024-05-16 14:26] LABS: Troponin I 0.064 ng/mL (0.000-0.034)
[2024-05-16] MEDS: LACTATED RINGERS 999 ML IV CONT (15:01)
[2024-05-16 15:33] LABS: Add Urine Microscopic? YES; Appearance Urine Turbid (Clear); Bacteria Urine 4+ /hpf; Bilirubin Urine Negative (Negative); Blood Urine 2+ (Negative); Color Urine Dark Yellow (Yellow); Glucose Urine UA Negative (Negative); Ketones Urine Trace mg/dL (Negative); Leukocyte Esterase Ur 3+ LEU/UL (Negative); Need Manual Microscopic Reviewed; Nitrate Urine Negative (Negative); Protein Urine 2+ mg/dL (Negative); Specific Grav Ur 1.017 (1.001-1.035); Squamous Epithelial Cell Urine Few /hpf (Few); WBC Urine >100 /hpf (0-3); pH Urine 5.5 (5.0-9.0)
[2024-05-16 16:13] LABS: Glucose Point of Care 90 mg/dl (65-105)
--- NOTE | 2024-05-16 16:44 | P.CONUR_ITS ---
Assessment and Plan Assessment and plan (1) Ureteral stone: Code(s): N20.1 - Calculus of ureter Status: Acute (2) Hydronephrosis: Code(s): N13.30 - Unspecified hydronephrosis Status: Acute (3) Sepsis: Code(s): A41.9 - Sepsis, unspecified organism Status: Acute Plan he is not able to sign his own consent currently. I have spoken to his [id number] and son. The son is the power of tax associate attorney. He will be taken to the operating room for a left ureteral stent placement. ICU physician is placing a central line. They understand the risk of bleeding, infection, inability to place the stent. They also understand will not be removing the stone in this operative setting and is to be done at a later time. He will be admitted postoperatively for broad-spectrum antibiotics to the hospital service. The family understands the urgency of the current procedure. Urology Consult Note HPI Date Seen: 05/16/24 Requesting Physician: Yue Mclaughlin Primary Care Provider: Michael Lopez MD Consult Narrative Narrative: Gordy Lynn is a 88 year old male who is healthy active man of [place] descent who moved to [facility] in his 20s. For he has a caregiver which helps out during the day. She reported to the family that the patient had mental status changes and seemed weak and not himself. This prompted a call to EMS to bring him to the emergency room. He is here with his son and [id number]. He is not currently able to participate in the H& P. He was found to be hypotensive Which prompted a CT scan of the head abdomen pelvis. These findings revealed a left mid to distal ureteral stone with moderate hydronephrosis. He has an abnormal urinalysis consistent with infection and signs and symptoms consistent with sepsis with an elevated lactate. The ER was placed in a central line for h ydration. In light of the current findings he will be taken to the operating room for left ureteral stent placement. I have discussed this daughter lie in his son. His son is the power of tax associate attorney and agreed to the procedure. They understand the risks of bleeding, infection, inability to place the stent. CT scan was reviewed by myself as well as the report. There is also a small 3 mm bladder stone Review of Systems Review of Systems: ROS unobtainable: Yes unobtainable due to medical condition PMFSH Past Medical History Medical History Anemia Diabetes History of prostate cancer HTN (hypertension) Vitamin D3 deficiency Social History Social History Smoking status: Never smoker Alcohol intake: never Substance use: never Substance use type: does not use Do You Feel Safe in your Home?: Yes Lack of Transportation: No Lack of Food: Never True Current Housing: I Have Housing Concerned About Future Housing: No Difficulty Paying Gas/Electric Bills: No Difficulty Paying for Meds: No Currently Unemployed: No Education: Bachelor's Degree Difficulty w/ Childcare or Family Care: No Living arrangements: with family Spiritual care concerns: No Meds Home Medications and Allergies Home Medications Medication Instructions Recorded Confirmed Type Lactobacillus 1 cap PO DAILY 05/15/22 04/27/24 History acidophilus-Bifidobac.animalis 2.5 billion cell capsule (Daily Probiotic) cholecalciferol (vitamin D3) 50 50 mcg PO DAILY 05/15/22 04/27/24 History mcg (2,000 unit) tablet (Vitamin D3) ferrous sulfate 325 mg (65 mg 325 mg PO DAILY 05/15/22 04/27/24 History iron) tablet psyllium husk 0.4 gram capsule 0.4 g PO DAILY 05/15/22 04/27/24 History (Metamucil) glipizide 5 mg tablet, extended 5 mg PO DAILY #90 tabs 12/04/23 04/27/24 Rx release 24 hr losartan 50 mg tablet See Rx Instructions .Route 12/04/23 04/27/24 Rx .COMPLEX #90 tabs fenofibrate 160 mg tablet 160 mg PO DAILY #90 tabs 12/25/23 04/27/24 Rx insulin degludec 100 unit/mL (3 15 unit (0.15 mL) subcut QHS #15 mL 01/12/24 04/27/24 Rx mL) subcutaneous pen (Tresiba FlexTouch U-100 insulin) omeprazole 20 mg capsule,delayed See Rx Instructions .Route 01/22/24 04/27/24 Rx release .COMPLEX #90 caps tamsulosin 0.4 mg capsule See Rx Instructions .Route 03/03/24 04/27/24 Rx .COMPLEX #180 caps Allergies Allergy/AdvReac Type Severity Reaction Status Date / Time No Known Allergies Allergy Verified 05/16/24 12:49 Vital Signs Vital Signs - 24 hr 05/16/24 12:39 05/16/24 13:02 05/16/24 13:15 Temperature 97.4 F L Pulse Rate 100 98 99 Respiratory Rate 18 20 20 Blood Pressure 99/62 L Pulse Oximetry 100 96 100 Oxygen Delivery Room Air 05/16/24 13:30 05/16/24 13:47 05/16/24 13:48 Temperature Pulse Rate 98 100 98 Respiratory Rate 21 H 14 20 Blood Pressure 91/65 L Pulse Oximetry 100 Oxygen Delivery 05/16/24 14:00 05/16/24 14:01 05/16/24 14:15 Temperature Pulse Rate 96 95 97 Respiratory Rate 22 H 19 20 Blood Pressure 83/60 L Pulse Oximetry Oxygen Delivery 05/16/24 14:16 05/16/24 14:32 05/16/24 14:45 Temperature Pulse Rate 98 97 96 Respiratory Rate 19 24 H 24 H Blood Pressure 87/59 L Pulse Oximetry 100 Oxygen Delivery 05/16/24 15:00 05/16/24 15:01 05/16/24 15:02 Temperature Pulse Rate 98 100 98 Respiratory Rate 26 H 23 H 23 H Blood Pressure Pulse Oximetry 99 99 99 Oxygen Delivery 05/16/24 15:04 05/16/24 15:15 05/16/24 15:16 Temperature Pulse Rate 97 102 H 101 H Respiratory Rate 22 H 22 H 22 H Blood Pressure 86/56 L 94/55 L Pulse Oximetry 100 100 100 Oxygen Delivery Exam Const: General: healthy appearing, acute distress and confusion; No alert or awake Orientation/consciousness: No patient oriented x3 and lethargic Limitations: altered mental status HENMT: Head: normal to inspection Eyes: General: appearance normal, both eyes and all related structures Neck: Neck: normal visual inspection Resp: Effort & Inspection: normal respiratory effort and no paradoxical thoraco-abdom movements Cardio: Jugular venous distension: no JVD GI: Inspection: normal to inspection Back/Spine/Pelvis: Back: No no CVA tenderness Skin: General skin exam: normal color and no rashes or lesions noted Neuro: General: No patient oriented x3 Extrem: General: normal to inspection Psych: Appearance: grossly normal and well kempt Results Labs 05/16/24 13:02 05/16/24 13:01 Labs: Short CBC 05/16/24 Range/Units 13:02 WBC 21.2 H (4.5-10.0) K/mm3 Hgb 9.0 L (14.0-18.0) g/dL Hct 26.3 L (42.0-52.0) % Plt Count 171 (150-375) k/mm3 BMP 05/16/24 13:01 Sodium 140 Potassium 3.3 L Chloride 104 Carbon Dioxide 25 BUN 36 H Creatinine 1.10 Glucose 42 L* Calcium 8.6 Cardiac Enzymes 05/16/24 Range/Units 13:51 Total Creatine Kinase 888 H (55-170) U/L Troponin I 0.064 H* (0.000-0.034) ng/mL Liver Function 05/16/24 Range/Units 13:01 Total Bilirubin 1.4 H (0.2-1.3) mg/dL AST 106 H (17-59) U/L ALT 39 (6-50) U/L Alkaline Phosphatase 97 (38-126) U/L Albumin 3.0 L (3.5-5.1) g/dL Urine 05/16/24 Range/Units 15:16 Urine Color Dark yellow (Yellow) Urine Appearance Turbid H (Clear) Urine pH 5.5 (5.0-9.0) Ur Specific [place] 1.017 (1.001-1.035) Urine Protein 2+ H (Negative) mg/dL Urine Glucose (UA) Negative (Negative) mg/dL Imaging My impression: 5-6 mm mid to distal ureteral stone. Moderate to significant hydronephrosis small bladder stone as well
[2024-05-16 17:04] LABS: Reflex Lactic Acid Yes or No Add Lactic
--- NOTE | 2024-05-16 17:43 | P.HP_ITS ---
H&P: HPI History of Present Illness Date/Time: 05/16/24 17:43 Chief Complaint: Weakness and hypoglycemia Narrative: 88-year-old male With history of diabetespresents the hospital after found being on the floor for generalized weakness. For EMS he was hypoglycemic in the 40s and given oral glucose, in the ED was still hypoglycemic and given D50. patient is a poor historian, I request not answer any questions and go back to sleep. Patient is in no acute distress at Time of assessment. In the ED the patient has leukocytosis at 21.2, hemoglobin of 9.0, potassium of 3.3, glucose of 42, lactic acid of 4.7, total bili of 1.4, AST of 106, CK of 800 ADA, a troponin of 0.064, and UA was positive for leukocyte esterase at 3+. Blood cultures pending. Patient was hypotensive with tachycardia in the ED was given fluid boluses. Due to hypotension is CVC was placed. Patient was found to be septic with hydronephrosis and a 3 mm bladder stone, Urology was consulted and will take the patient emergently to OR for stent placement. Cystoscopy, left ureteral stent placement 4.8 German contour, Munoz catheter placement on 05/16/[address] Bell. Review of Systems Review of Systems: ROS unobtainable: Yes unobtainable due to mental status and other ( refusal) [facility] Past Medical History Medical History Anemia Diabetes History of prostate cancer HTN (hypertension) Vitamin D3 deficiency Social History Social History Smoking status: Unknown if ever smoked Alcohol intake: never Substance use: never Substance use type: does not use Do You Feel Safe in your Home?: Yes Lack of Transportation: No Lack of Food: Never True Current Housing: I Have Housing Concerned About Future Housing: No Difficulty Paying Gas/Electric Bills: No Difficulty Paying for Meds: No Currently Unemployed: No Education: Bachelor's Degree Difficulty w/ Childcare or Family Care: No Living arrangements: with family Spiritual care concerns: No Meds Home Medications and Allergies Home Medications Medication Instructions Recorded Confirmed Type Lactobacillus 1 cap PO DAILY 05/15/22 04/27/24 History acidophilus-Bifidobac.animalis 2.5 billion cell capsule (Daily Probiotic) cholecalciferol (vitamin D3) 50 50 mcg PO DAILY 05/15/22 04/27/24 History mcg (2,000 unit) tablet (Vitamin D3) ferrous sulfate 325 mg (65 mg 325 mg PO DAILY 05/15/22 04/27/24 History iron) tablet psyllium husk 0.4 gram capsule 0.4 g PO DAILY 05/15/22 04/27/24 History (Metamucil) glipizide 5 mg tablet, extended 5 mg PO DAILY #90 tabs 12/04/23 04/27/24 Rx release 24 hr losartan 50 mg tablet See Rx Instructions .Route 12/04/23 04/27/24 Rx .COMPLEX #90 tabs fenofibrate 160 mg tablet 160 mg PO DAILY #90 tabs 12/25/23 04/27/24 Rx insulin degludec 100 unit/mL (3 15 unit (0.15 mL) subcut QHS #15 mL 01/12/24 04/27/24 Rx mL) subcutaneous pen (Tresiba FlexTouch U-100 insulin) omeprazole 20 mg capsule,delayed See Rx Instructions .Route 01/22/24 04/27/24 Rx release .COMPLEX #90 caps tamsulosin 0.4 mg capsule See Rx Instructions .Route 03/03/24 04/27/24 Rx .COMPLEX #180 caps Allergies Allergy/AdvReac Type Severity Reaction Status Date / Time No Known Allergies Allergy Verified 05/16/24 12:49 Vital Signs Vital Signs - 24 hr 05/16/24 12:39 05/16/24 13:02 05/16/24 13:15 Temperature 97.4 F L Pulse Rate 100 98 99 Respiratory Rate 18 20 20 Blood Pressure 99/62 L Pulse Oximetry 100 96 100 Oxygen Delivery Room Air 05/16/24 13:30 05/16/24 13:47 05/16/24 13:48 Temperature Pulse Rate 98 100 98 Respiratory Rate 21 H 14 20 Blood Pressure 91/65 L Pulse Oximetry 100 Oxygen Delivery 05/16/24 14:00 05/16/24 14:01 05/16/24 14:15 Temperature Pulse Rate 96 95 97 Respiratory Rate 22 H 19 20 Blood Pressure 83/60 L Pulse Oximetry Oxygen Delivery 05/16/24 14:16 05/16/24 14:32 05/16/24 14:45 Temperature Pulse Rate 98 97 96 Respiratory Rate 19 24 H 24 H Blood Pressure 87/59 L Pulse Oximetry 100 Oxygen Delivery 05/16/24 15:00 05/16/24 15:01 05/16/24 15:02 Temperature Pulse Rate 98 100 98 Respiratory Rate 26 H 23 H 23 H Blood Pressure Pulse Oximetry 99 99 99 Oxygen Delivery 05/16/24 15:04 05/16/24 15:15 05/16/24 15:16 Temperature Pulse Rate 97 102 H 101 H Respiratory Rate 22 H 22 H 22 H Blood Pressure 86/56 L 94/55 L Pulse Oximetry 100 100 100 Oxygen Delivery Exam Narrative: General: well appearing, appears stated age. HEENT: normocephalic, atraumatic. Mucous membranes moist. EOMI, PERRLA, bilateral sclera anicteric, no conjunctival injection. Neck supple without JVD, lymphadenopathy, or bruit. Respiratory: clear to ascultation bilaterally. No rales/rhonic/wheezes. Cardiovascular: Regular rate and rhythm, normal S1-S2 upon ascultation. No murmurs, rubs, or clicks. PMI is nondisplaced, capillary refill less than 3 second. Abdomen: Soft, round, no pulsatile masses, nondistended and nontender. No rebound, no guarding. No CVA tenderness, no hepatosplenomegaly. Bowel sounds present to all four quadrants. No high pitch or tinkling sounds, resonant to percussion. Extremities: No cyanosis, clubbing, or edema present. Pulses are palpable 2/2. Active ROM to all four extremities. Neuro: Alert and orientated . PERRLA. Cranial nerves 2-12 intact without focal deficit. Skin: Warm, dry, and intact, without rash, erythema, or lesion. Psych: pleasant, cooperative, normal speech, normal affect, no hallucinations, no dysarthia right IJ and Munoz catheter H&P: Results Labs Labs: Short CBC 05/16/24 Range/Units 13:02 WBC 21.2 H (4.5-10.0) K/mm3 Hgb 9.0 L (14.0-18.0) g/dL Hct 26.3 L (42.0-52.0) % Plt Count 171 (150-375) k/mm3 [facility] 05/16/24 13:01 Sodium 140 Potassium 3.3 L Chloride 104 Carbon Dioxide 25 BUN 36 H Creatinine 1.10 Glucose 42 L* Calcium 8.6 Cardiac Enzymes 05/16/24 Range/Units 13:51 Total Creatine Kinase 888 H (55-170) U/L Troponin I 0.064 H* (0.000-0.034) ng/mL Liver Function 05/16/24 Range/Units 13:01 Total Bilirubin 1.4 H (0.2-1.3) mg/dL AST 106 H (17-59) U/L ALT 39 (6-50) U/L Alkaline Phosphatase 97 (38-126) U/L Albumin 3.0 L (3.5-5.1) g/dL Urine 05/16/24 Range/Units 15:16 Urine Color Dark yellow (Yellow) Urine Appearance Turbid H (Clear) Urine pH 5.5 (5.0-9.0) Ur Specific [place] 1.017 (1.001-1.035) Urine Protein 2+ H (Negative) mg/dL Urine Glucose (UA) Negative (Negative) mg/dL Assessment and Plan Assessment and plan (1) Acute UTI: Code(s): N39.0 - Urinary tract infection, site not specified Status: Acute Assessment and Plan: acute UTI with hydronephrosis started on meropenem (2) Hydronephrosis: Code(s): N13.30 - Unspecified hydronephrosis Status: Acute Assessment and Plan: consulted plan for stent placement tonight Munoz placed by Urology (3) Sepsis: Qualifiers: Sepsis acute organ dysfunction status: without acute organ dysfunction Sepsis type: sepsis due to unspecified organism Qualified Code(s): A41.9 - Sepsis, unspecified organism Code(s): A41.9 - Sepsis, unspecified organism Status: Acute Assessment and Plan: due to sepsis due to UTI with lactic acidosis fluid bolus given and emergency room meropenem per urology repeat lactic acid pending blood cultures pending admit to ICU after procedure (4) Hypotension: Code(s): I95.9 - Hypotension, unspecified Status: Acute Assessment and Plan: patient is still hypotensive after sepsis protocol fluid bolus patient started on Levo by ICU attending titrate Levophed for map goal of 65 (5) Ureteral stone: Code(s): N20.1 - Calculus of ureter Status: Acute Assessment and Plan: see plan above stone and bladder (6) Hypoglycemia: Code(s): E16.2 - Hypoglycemia, unspecified Status: Acute Assessment and Plan: hypoglycemia protocol D5 NS at 100 hold home anti hyperglycemic meds (7) T2DM (type 2 diabetes mellitus): Code(s): E11.9 - Type 2 diabetes mellitus without complications Status: Acute Assessment and Plan: currently holding home medications due to severe hypoglycemia on the admission (8) HTN (hypertension): Code(s): I10 - Essential (primary) hypertension Status: Acute Assessment and Plan: patiently currently hypotensive due to sepsis hold home medications (9) Fall: Code(s): W19.XXXA - Unspecified fall, initial encounter Status: Acute Assessment and Plan: likely due to sepsis and severe hypoglycemia PT and OT evaluation Quality VTE Prophylaxis VTE prophylaxis: mechanical ordered and pharmacologic ordered home meds not reconciled by Nursing, patient refusing to answer questions at this current time per chart review he is on oral anti hyperglycemics which will be held anyway, losartan which will be held due to hypotension, and Flomax and long-acting insulinwhich can be restarted once verified, will need to reach out to family during daytime hours. Hospitalist MIPS Advance Care Plan I have confirmed that the patient's Advanced Care Plan is present, code status is documented, or surrogate decision maker is listed in patient medical record.: Yes
[2024-05-16] MEDS: LACTATED RINGERS 1,000 ML 999 ML (17:46)
[2024-05-16] MEDS: MEROPENEM 1 GM/NS 100 ML 1 GM/100 ML BAG IVPB (17:46)
--- NOTE | 2024-05-16 17:46 | WPDHPUPDATE1 ---
History and Physical Update Update Date/Time: 05/16/24 17:46 History and Physical has been reviewed, including an updated exam of the patient. There are NO changes in the patient's condition. Risks, benefits, and alternatives have been discussed and questions answered. Patient agrees to proceed with procedure. Proceed with cystoscopy, left retrograde, left ureteral stent placement
--- NOTE | 2024-05-16 17:58 | P.PNAN_ITS ---
Anes - Initial Pre Proc Eval Procedure: Operation Date: 05/16/24 17:30 Proposed Procedures p Cystoscopy, with Left Stent Placement - Luis Alberto Bell MD Date/Time: 05/16/24 17:58 Surgeon: Luis Alberto Bell MD Pre Op Diagnosis: ams Patient Data Age: 88 Gender: M Height: 1.57 m Weight: 49.9 kg Last Vital Signs Temp 97.4 F L 05/16/24 12:39 Pulse 98 05/16/24 17:49 Resp 18 05/16/24 17:49 BP 88/54 L 05/16/24 17:49 Pulse Ox 99 05/16/24 17:49 O2 Del Method Room Air 05/16/24 12:39 Allergies Allergy/AdvReac Type Severity Reaction Status Date / Time No Known Allergies Allergy Verified 05/16/24 12:49 Home Medications Medication Instructions Recorded Confirmed Type Lactobacillus 1 cap PO DAILY 05/15/22 04/27/24 History acidophilus-Bifidobac.animalis 2.5 billion cell capsule (Daily Probiotic) cholecalciferol (vitamin D3) 50 50 mcg PO DAILY 05/15/22 04/27/24 History mcg (2,000 unit) tablet (Vitamin D3) ferrous sulfate 325 mg (65 mg 325 mg PO DAILY 05/15/22 04/27/24 History iron) tablet psyllium husk 0.4 gram capsule 0.4 g PO DAILY 05/15/22 04/27/24 History (Metamucil) glipizide 5 mg tablet, extended 5 mg PO DAILY #90 tabs 12/04/23 04/27/24 Rx release 24 hr losartan 50 mg tablet See Rx Instructions .Route 12/04/23 04/27/24 Rx .COMPLEX #90 tabs fenofibrate 160 mg tablet 160 mg PO DAILY #90 tabs 12/25/23 04/27/24 Rx insulin degludec 100 unit/mL (3 15 unit (0.15 mL) subcut QHS #15 mL 01/12/24 04/27/24 Rx mL) subcutaneous pen (Tresiba FlexTouch U-100 insulin) omeprazole 20 mg capsule,delayed See Rx Instructions .Route 01/22/24 04/27/24 Rx release .COMPLEX #90 caps tamsulosin 0.4 mg capsule See Rx Instructions .Route 03/03/24 04/27/24 Rx .COMPLEX #180 caps Laboratory Tests 05/16/24 05/16/24 05/16/24 12:51 13:01 13:02 WBC 21.2 H K/mm3 (4.5-10.0) RBC 2.64 L M/mm3 (4.6-6.20) Hgb 9.0 L g/dL (14.0-18.0) Hct 26.3 L % (42.0-52.0) MCV 99.6 fl (80-100) MCH 34.1 H pg (26-34) MCHC 34.2 g/dl (32-36) RDW 17.7 H % (11.5-14.5) Plt Count 171 k/mm3 (150-375) MPV 10.4 fl (7.4-10.4) Immature Gran % (Auto) Not Reportable Neut % (Auto) Not Reportable Lymph % (Auto) Not Reportable Hall % (Auto) Not Reportable Eos % (Auto) Not Reportable Baso % (Auto) Not Reportable Lymph # (Auto) Not Reportable Hall # (Auto) Not Reportable Eos # (Auto) Not Reportable Baso # (Auto) Not Reportable Abs Immat Gran (auto) Not Reportable Absolute Neuts (auto) Not Reportable Absolute Nucleated RBC Not Reportable Total Counted 100 Neutrophils % (Manual) 81 H % (46-73) Band Neutrophils % 10 H % (0-6) Lymphocytes % (Manual) 2 L % (18-44) Monocytes % (Manual) 7 % (3-9) Nucleated RBC % Not Reportable Abs Neuts (Manual) 19.29 H K/mm3 (1.3-6.7) Abs Lymphs (Manual) 0.42 L K/mm3 (1.1-4.5) Abs Monocytes (Manual) 1.48 H K/mm3 (0.1-0.90) Platelet Estimate Adequate (Adequate) Hypochromasia 2+ Anisocytosis 1+ Target Cells 1+ Schistocytes None seen PT 16.4 H Seconds (11.1-14.7) INR 1.3 APTT 41.0 H Seconds (22.3-36.8) Sodium 140 mmol/L (137-145) Potassium 3.3 L mmol/L (3.4-5.0) Chloride 104 mmol/L (98-107) Carbon Dioxide 25 mmol/L (22-30) Anion Gap 11 mmol/L (4-12) BUN 36 H mg/dL (9-20) Creatinine 1.10 mg/dL (0.7-1.3) Estim Creat Clear Calc 29 ml/min Estimated GFR > 60 (59 - ) Glucose 42 L* mg/dL (65-110) POC Capillary Glucose 40 L* mg/dl (65-105) Lactic Acid Calcium 8.6 mg/dL (8.4-10.2) Magnesium Total Bilirubin 1.4 H mg/dL (0.2-1.3) AST 106 H U/L (17-59) ALT 39 U/L (6-50) Alkaline Phosphatase 97 U/L (38-126) Total Creatine Kinase Troponin I Total Protein 6.0 L g/dL (6.3-8.2) Albumin 3.0 L g/dL (3.5-5.1) Urine Color Urine Appearance Urine pH Ur Specific [place] Urine Protein Urine Glucose (UA) Urine Ketones Ur Blood (Man) Urine Nitrate Urine Bilirubin Urine Urobilinogen Add Ur Microanalysis Leukocyte Esterase Rfl Urine RBC Urine WBC Ur Squamous Epith Cells Urine Bacteria Urine Casts 05/16/24 05/16/24 05/16/24 13:23 13:51 15:16 WBC RBC Hgb Hct MCV MCH MCHC RDW Plt Count MPV Immature Gran % (Auto) Neut % (Auto) Lymph % (Auto) Hall % (Auto) Eos % (Auto) Baso % (Auto) Lymph # (Auto) Hall # (Auto) Eos # (Auto) Baso # (Auto) Abs Immat Gran (auto) Absolute Neuts (auto) Absolute Nucleated RBC Total Counted Neutrophils % (Manual) Band Neutrophils % Lymphocytes % (Manual) Monocytes % (Manual) Nucleated RBC % Abs Neuts (Manual) Abs Lymphs (Manual) Abs Monocytes (Manual) Platelet Estimate Hypochromasia Anisocytosis Target Cells Schistocytes PT INR APTT Sodium Potassium Chloride Carbon Dioxide Anion Gap BUN Creatinine Estim Creat Clear Calc Estimated GFR Glucose POC Capillary Glucose 176 H mg/dl (65-105) Lactic Acid 4.7 H* mmol/L (0.7-2.0) Calcium Magnesium 1.6 mg/dL (1.6-2.3) Total Bilirubin AST ALT Alkaline Phosphatase Total Creatine Kinase 888 H U/L (55-170) Troponin I 0.064 H* ng/mL (0.000-0.034) Total Protein Albumin Urine Color Dark yellow (Yellow) Urine Appearance Turbid H (Clear) Urine pH 5.5 (5.0-9.0) Ur Specific [place] 1.017 (1.001-1.035) Urine Protein 2+ H mg/dL (Negative) Urine Glucose (UA) Negative mg/dL (Negative) Urine Ketones Trace H mg/dL (Negative) Ur Blood (Man) 2+ H (Negative) Urine Nitrate Negative (Negative) Urine Bilirubin Negative (Negative) Urine Urobilinogen 1.0 mg/dL (<2.0) Add Ur Microanalysis Reviewed Leukocyte Esterase Rfl 3+ H MACO/UL (Negative) Urine RBC 11-20 H /hpf (0-2) Urine WBC >100 H /hpf (0-3) Ur Squamous Epith Cells Few /hpf (Few) Urine Bacteria 4+ /hpf Urine Casts 6-10 05/16/24 16:10 WBC RBC Hgb Hct MCV MCH MCHC RDW Plt Count MPV Immature Gran % (Auto) Neut % (Auto) Lymph % (Auto) Hall % (Auto) Eos % (Auto) Baso % (Auto) Lymph # (Auto) Hall # (Auto) Eos # (Auto) Baso # (Auto) Abs Immat Gran (auto) Absolute Neuts (auto) Absolute Nucleated RBC Total Counted Neutrophils % (Manual) Band Neutrophils % Lymphocytes % (Manual) Monocytes % (Manual) Nucleated RBC % Abs Neuts (Manual) Abs Lymphs (Manual) Abs Monocytes (Manual) Platelet Estimate Hypochromasia Anisocytosis Target Cells Schistocytes PT INR APTT Sodium Potassium Chloride Carbon Dioxide Anion Gap BUN Creatinine Estim Creat Clear Calc Estimated GFR Glucose POC Capillary Glucose 90 mg/dl (65-105) Lactic Acid Calcium Magnesium Total Bilirubin AST ALT Alkaline Phosphatase Total Creatine Kinase Troponin I Total Protein Albumin Urine Color Urine Appearance Urine pH Ur Specific [place] Urine Protein Urine Glucose (UA) Urine Ketones Ur Blood (Man) Urine Nitrate Urine Bilirubin Urine Urobilinogen Add Ur Microanalysis Leukocyte Esterase Rfl Urine RBC Urine WBC Ur Squamous Epith Cells Urine Bacteria Urine Casts Patient hx anesthesia problems: none Family hx anesthesia problems: none Results Review: All pre-operative results and documents have been reviewed as part of the pre- operative evaluation. [facility] Past Medical History Medical History Anemia Diabetes History of prostate cancer HTN (hypertension) Vitamin D3 deficiency Social History Social History Smoking status: Never smoker Alcohol intake: never Substance use: never Substance use type: does not use Do You Feel Safe in your Home?: Yes Lack of Transportation: No Lack of Food: Never True Current Housing: I Have Housing Concerned About Future Housing: No Difficulty Paying Gas/Electric Bills: No Difficulty Paying for Meds: No Currently Unemployed: No Education: Bachelor's Degree Difficulty w/ Childcare or Family Care: No Living arrangements: with family Spiritual care concerns: No Anes - Eval Final PreProcedure Day of Procedure 05/16/24 17:58 Patient weight: normal Heart: regular rate and rhythm Lungs: clear to auscultation Airway: Mallampati scale and special considerations (Upper edentulous, lower intact. ) Neurological: alert and oriented and confused Last oral intake: >/= 8 hours ASA classification: IV Emergent: yes Anesthetic plan: proceed Anesthesia type and monitoring: general GIVS and standard monitoring Results Review: All pre-operative results and documents have been reviewed as part of the pre- operative evaluation. Pt w DM, HTN, overall very good functional status prior to this illness, active w walking short distances, no cp or sob. Pt had a change in mental status this am, low blood sugar. Family summoned EMS. Now in ER w obs ureteral stone. I met in ER w daughter in law. Full discussion about all possibilities including and risks/benefits of this procedure for this critical pt. Pt has CVP in place and has had 2 L crystalloid, abx. Now for OR. Case discussed w Dr Bell and Imelda Larkin CRNA. Informed Consent: The patient's anesthetic plan and its attendant risks and benefits were discussed with the patient/family/POA. Questions were solicited and answers provided to the satisfaction of the patient/family/POA.
[2024-05-16] MEDS: LIDOCAINE HCL 2% GEL UROJET 10 ML PKG 20 ML MUCOUS MEM (18:00)
--- NOTE | 2024-05-16 18:12 | W.PM.PROC2 ---
Procedure Note - Detailed Date of Procedure 05/16/24 Pre-op Diagnosis Obstructing left ureteral stone with sepsis Post-op Diagnosis Same Procedure Performed Cystoscopy, left ureteral stent placement 4.8 Macedonian contour, Munoz catheter placement Surgeon Luis Alberto Bell MD Anesthesia General Description of Procedure Patient was taken the operative suite correctly identified. Once anesthesia was obtained he was placed in the dorsal lithotomy position and prepped and draped usual sterile fashion. Twenty-two Macedonian scope was inserted under direct vision. Prostate nonobstructive. Upon entering the bladder has typical post radiation changes. The right ureteral orifice was visually seen easily. The left ureteral orifice was somewhat displaced laterally and puckered in. I was able to find the use a ureteral catheter and angled Glidewire to enter the orifice. It did meet some resistance at the level of the stone we were able to manipulate this past it. I then advanced the ureteral catheter past the stone. Sensor wire was then exchanged. 4.8 Macedonian contour stent was then placed with the proximal end coiled in the renal pelvis and the distal in the bladder. It was difficult to get a 5 Macedonian ureteral catheter past the stone and thus I did not place a larger stent. 2% viscous lidocaine had been inserted into the urethra. Sixteen Macedonian Munoz was then placed for maximal drainage. 10 cc were placed in the balloon. Was taken to the ICU. Will address the stone at a later point time when he is medically stable. This completes dictation. Please send a copy of op note to my office. Drains Yes Packing No Pathology Yes (Bladder calculus 3 mm most likely passed ureteral stone) Complications No immediate complications Condition Stable Disposition ICU
[2024-05-16 19:38] LABS: Lactic Acid 2.7 mmol/L (0.7-2.0)
[2024-05-16 20:21] LABS: Glucose Point of Care 70 mg/dl (65-105)
[2024-05-16 20:24] LABS: MRSA (PCR) NOT DETECTED (NOT DETECTE)
[2024-05-16] MEDS: NOREPINEPHRINE 8 MG/D5W 250 ML 8 MG/250 ML BAG 9.38 MG IV CONT (20:57)
[2024-05-16 23:26] LABS: Anion Gap 7 mmol/L (4-12); Blood Urea Nitrogen 35 mg/dL (9-20); Calcium 7.9 mg/dL (8.4-10.2); Carbon Dioxide 22 mmol/L (22-30); Chloride 106 mmol/L (98-107); Estimated CRCL calculation 29 ml/min; Estimated Glomerular Filt Rate > 60; Glucose 57 mg/dL (65-110); Potassium 3.6 mmol/L (3.4-5.0); Sodium 135 mmol/L (137-145)
[2024-05-16] MEDS: DEXTROSE 50% 25 GM/50 ML SYRINGE IV PUSH (23:49)
[2024-05-17] VITALS (37 sets, daily range): BP systolic 88–144; BP diastolic 48–84; PULSE 76–104; RESP 11–33; TEMP 36.5–37; O2SAT 93–100
[2024-05-17 00:07] LABS: Glucose Point of Care 46 mg/dl (65-105)
[2024-05-17 00:07] LABS: Glucose Point of Care 46 mg/dl (65-105)
[2024-05-17 00:07] LABS: Glucose Point of Care 190 mg/dl (65-105)
[2024-05-17] MEDS: DEXTROSE 5% 1,000 ML 1,000 ML 100 ML IV CONT (00:07)
[2024-05-17 04:52] LABS: Basophils Percent Auto 0.2 % (0.2-1.2); Eosinophils Percent Auto 0.1 % (0-4.4); Hematocrit 22.3 % (42.0-52.0); Hemoglobin 7.9 g/dL (14.0-18.0); Immature Granulocyte Absolute 0.91 K/mm3 (0.00-0.031); Immature Granulocyte Percent A 4.8 % (0-0.5); Lymphocytes Absolute Auto 0.97 K/mm3 (0.9-3.2); Lymphocytes Percent Auto 5.1 % (18.3-44.2); Mean Corpuscular HGB Conc 35.4 g/dl (32-36); Mean Corpuscular Hemoglobin 34.3 pg (26-34); Monocytes Absolute Auto 1.3 K/mm3 (0.1-0.6); Monocytes Percent Auto 6.5 % (2.6-8.5); Neutrophils Absolute Auto 15.9 K/mm3 (1.3-6.7); Neutrophils Percent Auto 83.3 % (45.5-73.1); Platelet Count Result 126 k/mm3 (150-375); Red Cell Distribution Width 18.3 % (11.5-14.5); White Blood Count 19.1 K/mm3 (4.5-10.0)
--- NOTE | 2024-05-17 04:57 | PC.NURSE ---
Patient unable to recall home medications or family history throughout the night
[2024-05-17] MEDS: MEROPENEM 1 GM/NS 100 ML 1 GM/100 ML BAG IVPB ×2 (05:00→17:38)
[2024-05-17 05:04] LABS: Alanine Aminotransferase 45 U/L (6-50); Albumin Level 2.3 g/dL (3.5-5.1); Alkaline Phosphatase 86 U/L (38-126); Anion Gap 7 mmol/L (4-12); Aspartate Amino Transferase 150 U/L (17-59); Blood Urea Nitrogen 33 mg/dL (9-20); Calcium 7.9 mg/dL (8.4-10.2); Carbon Dioxide 22 mmol/L (22-30); Chloride 105 mmol/L (98-107); Estimated CRCL calculation 27 ml/min; Estimated Glomerular Filt Rate 57; Glucose 150 mg/dL (65-110); Magnesium 1.5 mg/dL (1.6-2.3); Phosphorus 2.7 mg/dL (2.5-4.5); Potassium 3.4 mmol/L (3.4-5.0); Sodium 134 mmol/L (137-145)
[2024-05-17 05:25] LABS: Platelet Estimate Decreased (Adequate)
[2024-05-17 05:26] LABS: Anisocytosis 1+; Hypochromasia 1+
[2024-05-17 05:27] LABS: Target Cells 1+
[2024-05-17 05:28] LABS: Schistocytes None Seen
[2024-05-17] MEDS: HEPARIN SODIUM 5,000 UNITS/ML VIAL 5000 UNITS SUB-Q ×2 (08:16→21:02)
[2024-05-17] MEDS: KCL 40 MEQ/WATER 100 ML 100 ML 25 ML IVPB (08:16)
[2024-05-17] MEDS: MAGNESIUM SULF 2 GM/WATER 50ML 2 GM/50 ML BAG IVPB (08:16)
[2024-05-17] MEDS: DEXTROSE 10% 1,000 ML 50 ML IV CONT (08:17)
--- NOTE | 2024-05-17 10:51 | P.CONIN_ITS ---
Assessment and Plan Assessment and plan (1) Septic shock: Code(s): A41.9 - Sepsis, unspecified organism; R65.21 - Severe sepsis with septic shock Status: Acute Assessment and Plan: Septic shock likely related UTI, kidney stone hydronephrosis -patient presented with generalized weakness, fall -was found to be hypotensive in the ER, requiring central line placement and starting vasopressors after fluid challenge -currently weaning Levophed maintained MAP > 65 mmHg end organ perfusion -urine output has been adequate, creatinine is stable -05/16/2024: Blood cultures growing Gram-negative bacilli 1 of 2 bottles, -05/16/2024: Urine cultures are pending -continue meropenem, (05/16) (2) UTI (urinary tract infection): Code(s): N39.0 - Urinary tract infection, site not specified Status: Acute Assessment and Plan: UTI likely related to kidney stones -urine cultures are pending, continue antibiotics as a (3) Ureteral stone: Code(s): N20.1 - Calculus of ureter Status: Acute Assessment and Plan: CT scan of the abdomen pelvis showed left ureteral stone with left hydronephrosis, status post cystoscopy and left ureteral stent placement -urology following the patient -Munoz catheter in place -continue antibiotics as above (4) Hydronephrosis: Code(s): N13.30 - Unspecified hydronephrosis Status: Acute Assessment and Plan: As above (5) Hypoglycemia: Code(s): E16.2 - Hypoglycemia, unspecified Status: Acute Assessment and Plan: Patient was found to be hypoglycemic at home upon EMS arrival, was given D50, with night patient was hypo glycemic also requiring [id number] -switch the D5 to D10 infusion at 50 mL/hour this morning as patient has received significant amount of IV fluids -could be related to septic shock, patient does have a history of diabetes and took is oral hypoglycemics have been lingering in the system -blood sugars on D10 infusion are elevated, will DC D10 infusion and monitor A ccu-Cheks closely (6) Fall: Code(s): W19.XXXA - Unspecified fall, initial encounter Status: Acute Assessment and Plan: Patient had a fall could be related to hypotension, infection, patient does take losartan at home -continue to monitor, will require PT/OT when he is off pressors CT brain on admission:. 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 Plan DVT prophylaxis: Heparin Stress ulcer prophylaxis: Not indicated Nutrition: Regular diet Code Status: Full code Critical Care Time Spent: 49 minutes Due to a high probability of clinically significant, life threatening deterioration, the patient required my highest level of preparedness to intervene emergently and I personally spent this critical care time directly and personally managing the patient. This critical care time included obtaining a history; examining the patient; pulse oximetry; ordering and review of studies; arranging urgent treatment with development of a management plan; evaluation of patient's response to treatment; frequent reassessment; and discussions with other providers. It was exclusive of separately billable procedures and treating other patients and teaching time. Please see Assessment and Plan section and the rest of the note for further information on patient assessment and treatment This dictation may have been done utilizing a voice recognition system. Attempts have been made to correct errors. However, there may be uncorrected grammatical, spelling, and recognitions errors present. 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 The family was able to get him up, and called the EMS. Upon EMS arrival patient was hypoglycemic and was given D50. Blood pressures were low in the ER patient had WBC count of 21, hemoglobin of 9.0, lactic acid of 4.7 UA was positive for leukocyte esterase, central line was inserted, patient was started on pressors. CT abdomen and pelvis with findings of left mid to distal ureteral stone with moderate hydronephrosis, patient was taken to the OR status post cystoscopy with left ureteral stent placement. Patient was on Levophed upon arrival to the ICU, was started on meropenem. Patient seen and examined this morning in the ICU, is awake, alert, oriented, states he is feeling better but is sleepy. Remains on Levophed at 1 mcg/min. Patient has been hypoglycemic overnight requiring D5% in IV fluids at 100 mL/hour, patient was adequately fluid-resuscitated in the ER. Switch the D5 to D10 at 50 mL/hour. Continue Accu-Cheks Urine output has been adequate, patient is afebrile, WBC count trending down. Patient currently denies any chest pain, shortness of breath, abdominal pain, nausea, vomiting. States he has decreased appetite PMFSH Past Medical History Medical History Anemia Diabetes History of prostate cancer HTN (hypertension) Vitamin D3 deficiency Social History Social History Smoking status: Unknown if ever smoked Alcohol intake: never Substance use: never Substance use type: does not use Do You Feel Safe in your Home?: Yes Lack of Transportation: No Lack of Food: Never True Current Housing: I Have Housing Concerned About Future Housing: No Difficulty Paying Gas/Electric Bills: No Difficulty Paying for Meds: No Currently Unemployed: No Education: Bachelor's Degree Difficulty w/ Childcare or Family Care: No Living arrangements: with family Spiritual care concerns: No Meds Home Medications and Allergies Home Medications Medication Instructions Recorded Confirmed Type Lactobacillus 1 cap PO DAILY 05/15/22 05/17/24 History acidophilus-Bifidobac.animalis 2.5 billion cell capsule (Daily Probiotic) cholecalciferol (vitamin D3) 50 50 mcg PO DAILY 05/15/22 05/17/24 History mcg (2,000 unit) tablet (Vitamin D3) ferrous sulfate 325 mg (65 mg 325 mg PO DAILY 05/15/22 05/17/24 History iron) tablet psyllium husk 0.4 gram capsule 0.4 g PO DAILY 05/15/22 05/17/24 History (Metamucil) fenofibrate 160 mg tablet 160 mg PO DAILY #90 tabs 12/25/23 05/17/24 Rx insulin degludec 100 unit/mL (3 15 unit (0.15 mL) subcut QHS #15 mL 01/12/24 05/17/24 Rx mL) subcutaneous pen (Tresiba FlexTouch U-100 insulin) losartan 50 mg tablet 50 mg PO DAILY 05/17/24 05/17/24 History omeprazole 20 mg capsule,delayed 20 mg PO DAILY 05/17/24 05/17/24 History release tamsulosin 0.4 mg capsule 0.8 mg PO DAILY 05/17/24 05/17/24 History Allergies Allergy/AdvReac Type Severity Reaction Status Date / Time No Known Allergies Allergy Verified 05/16/24 12:49 Vital Signs Vital Signs - 24 hr 05/16/24 12:39 05/16/24 13:02 05/16/24 13:15 Temperature 97.4 F L Pulse Rate 100 98 99 Respiratory Rate 18 20 20 Blood Pressure 99/62 L Pulse Oximetry 100 96 100 Oxygen Delivery Room Air 05/16/24 13:30 05/16/24 13:47 05/16/24 13:48 Temperature Pulse Rate 98 100 98 Respiratory Rate 21 H 14 20 Blood Pressure 91/65 L Pulse Oximetry 100 Oxygen Delivery 05/16/24 14:00 05/16/24 14:01 05/16/24 14:15 Temperature Pulse Rate 96 95 97 Respiratory Rate 22 H 19 20 Blood Pressure 83/60 L Pulse Oximetry Oxygen Delivery 05/16/24 14:16 05/16/24 14:32 05/16/24 14:45 Temperature Pulse Rate 98 97 96 Respiratory Rate 19 24 H 24 H Blood Pressure 87/59 L Pulse Oximetry 100 Oxygen Delivery 05/16/24 15:00 05/16/24 15:01 05/16/24 15:02 Temperature Pulse Rate 98 100 98 Respiratory Rate 26 H 23 H 23 H Blood Pressure Pulse Oximetry 99 99 99 Oxygen Delivery 05/16/24 15:04 05/16/24 15:15 05/16/24 15:16 Temperature Pulse Rate 97 102 H 101 H Respiratory Rate 22 H 22 H 22 H Blood Pressure 86/56 L 94/55 L Pulse Oximetry 100 100 100 Oxygen Delivery 05/16/24 17:49 05/16/24 18:23 05/16/24 18:23 Temperature 98.3 F Pulse Rate 98 104 H Respiratory Rate 18 22 H Blood Pressure 88/54 L 98/55 L 98/76 L Pulse Oximetry 99 95 Oxygen Delivery 05/16/24 20:08 05/16/24 20:57 05/16/24 21:02 Temperature 98.5 F Pulse Rate 95 91 88 Respiratory Rate 21 H Blood Pressure 101/59 L 89/57 L 85/59 L Pulse Oximetry 97 Oxygen Delivery 05/16/24 21:15 05/16/24 21:30 05/16/24 22:00 Temperature Pulse Rate 80 100 99 Respiratory Rate Blood Pressure 108/62 105/58 L 84/58 L Pulse Oximetry Oxygen Delivery 05/16/24 22:00 05/16/24 21:00 05/16/24 22:15 Temperature Pulse Rate 99 90 90 Respiratory Rate 18 17 Blood Pressure 84/58 L 83/53 L 104/62 Pulse Oximetry 99 99 Oxygen Delivery 05/16/24 22:30 05/16/24 22:45 05/16/24 23:00 Temperature Pulse Rate 99 102 H 98 Respiratory Rate 18 Blood Pressure 123/62 131/64 103/57 L Pulse Oximetry 98 Oxygen Delivery 05/16/24 23:00 05/16/24 20:00 05/17/24 00:00 Temperature 98.4 F Pulse Rate 98 104 H Respiratory Rate 13 Blood Pressure 103/57 L 109/59 L Pulse Oximetry 94 Oxygen Delivery Room Air 05/17/24 00:00 05/16/24 20:00 05/16/24 22:00 Temperature Pulse Rate 101 H 95 101 H Respiratory Rate Blood Pressure 109/59 L Pulse Oximetry Oxygen Delivery 05/17/24 00:00 05/17/24 00:00 05/17/24 02:00 Temperature Pulse Rate 101 H 91 Respiratory Rate Blood Pressure Pulse Oximetry Oxygen Delivery Room Air 05/17/24 02:04 05/17/24 01:00 05/17/24 01:15 Temperature Pulse Rate 100 96 Respiratory Rate Blood Pressure 99/62 L 100/58 L 144/84 H Pulse Oximetry Oxygen Delivery 05/17/24 02:00 05/17/24 03:00 05/17/24 04:00 Temperature Pulse Rate 90 90 86 Respiratory Rate Blood Pressure 99/62 L 108/63 104/59 L Pulse Oximetry Oxygen Delivery 05/17/24 04:30 05/17/24 04:45 05/17/24 04:00 Temperature Pulse Rate 86 91 Respiratory Rate Blood Pressure 105/57 L 106/58 L Pulse Oximetry Oxygen Delivery Room Air 05/17/24 04:00 05/17/24 05:00 05/16/24 23:15 Temperature 98.5 F Pulse Rate 86 88 97 Respiratory Rate 16 13 Blood Pressure 104/59 L 88/57 L 111/56 L Pulse Oximetry 100 98 Oxygen Delivery 05/16/24 23:30 05/16/24 23:45 05/17/24 00:00 Temperature Pulse Rate 103 H 98 102 H Respiratory Rate 33 H 7 L 13 Blood Pressure 105/67 106/58 L 109/59 L Pulse Oximetry 94 97 93 Oxygen Delivery 05/17/24 00:15 05/17/24 00:30 05/17/24 00:45 Temperature Pulse Rate 98 97 95 Respiratory Rate 12 22 H 17 Blood Pressure 107/58 L 105/71 110/58 L Pulse Oximetry 96 98 97 Oxygen Delivery 05/17/24 01:16 05/17/24 01:30 05/17/24 01:45 Temperature Pulse Rate 98 92 90 Respiratory Rate 33 H 18 15 Blood Pressure 144/84 H 104/59 L 99/65 L Pulse Oximetry 98 100 Oxygen Delivery 05/17/24 02:15 05/17/24 02:30 05/17/24 02:45 Temperature Pulse Rate 90 90 90 Respiratory Rate 14 14 14 Blood Pressure 104/62 106/57 L 105/59 L Pulse Oximetry 99 100 99 Oxygen Delivery 05/17/24 03:00 05/17/24 03:15 05/17/24 03:30 Temperature Pulse Rate 91 90 89 Respiratory Rate 11 L 18 22 H Blood Pressure 108/63 112/62 106/58 L Pulse Oximetry 99 98 99 Oxygen Delivery 05/17/24 03:45 05/17/24 01:00 05/17/24 05:15 Temperature Pulse Rate 85 95 91 Respiratory Rate 18 Blood Pressure 104/60 110/58 L 121/66 Pulse Oximetry 98 Oxygen Delivery 05/17/24 04:00 05/17/24 04:15 05/17/24 04:30 Temperature Pulse Rate 85 85 84 Respiratory Rate 16 18 13 Blood Pressure 104/59 L 100/60 105/57 L Pulse Oximetry 99 99 100 Oxygen Delivery 05/17/24 04:45 05/17/24 05:00 05/17/24 05:15 Temperature Pulse Rate 90 84 92 Respiratory Rate 16 19 29 H Blood Pressure 106/58 L 88/57 L 121/66 Pulse Oximetry 98 99 98 Oxygen Delivery 05/17/24 05:40 05/17/24 04:00 05/17/24 06:00 Temperature Pulse Rate 93 86 89 Respiratory Rate Blood Pressure 129/66 Pulse Oximetry Oxygen Delivery 05/17/24 06:00 05/17/24 06:15 05/17/24 06:30 Temperature Pulse Rate 86 85 90 Respiratory Rate Blood Pressure 104/59 L 121/66 104/62 Pulse Oximetry Oxygen Delivery 05/17/24 06:00 05/17/24 08:00 05/17/24 08:00 Temperature 98.6 F Pulse Rate 89 92 92 Respiratory Rate 18 18 Blood Pressure 111/62 Pulse Oximetry 95 99 Oxygen Delivery Room Air 05/17/24 08:00 05/17/24 10:00 05/17/24 10:00 Temperature 98.4 F 98.4 F Pulse Rate 92 88 88 Respiratory Rate 18 18 Blood Pressure 105/48 L 114/64 Pulse Oximetry 99 99 Oxygen Delivery 05/17/24 08:00 05/17/24 10:00 Temperature Pulse Rate 92 91 Respiratory Rate Blood Pressure 105/48 L 112/74 Pulse Oximetry Oxygen Delivery Exam Narrative: General: Pleasant gentleman in no acute distress HEENT:? Pupils are equal and reactive, sclerae is clear Neck:? Supple Respiratory:? Coarse breath sounds bilaterally, decreased at bases, adequate air entry, no wheeze Cardiac:? S1-S2 normal, regular rate and rhythm Abdomen:? Soft, nontender, nondistended, normoactive bowel sound Extremities:? No edema, palpable pedal pulses Neuro:, patient awake, alert, answers to questions appropriately and follows simple commands in all extremities Skin:? Warm and dry Psych:? Normal mentation and affect Results Labs 05/17/24 04:38 05/17/24 04:38 Labs: Short CBC 05/16/24 05/17/24 Range/Units 13:02 04:38 WBC 21.2 H 19.1 H (4.5-10.0) K/mm3 Hgb 9.0 L 7.9 L (14.0-18.0) g/dL Hct 26.3 L 22.3 L (42.0-52.0) % Plt Count 171 126 L (150-375) k/mm3 BMP 05/16/24 05/16/24 05/17/24 13:01 22:22 04:38 Sodium 140 135 L 134 L Potassium 3.3 L 3.6 3.4 Chloride 104 106 105 Carbon Dioxide 25 22 22 BUN 36 H 35 H 33 H Creatinine 1.10 1.10 1.20 Glucose 42 L* 57 L* 150 H Calcium 8.6 7.9 L 7.9 L Cardiac Enzymes 05/16/24 Range/Units 13:51 Total Creatine Kinase 888 H (55-170) U/L Troponin I 0.064 H* (0.000-0.034) ng/mL Liver Function 05/16/24 05/17/24 Range/Units 13:01 04:38 Total Bilirubin 1.4 H 1.0 (0.2-1.3) mg/dL AST 106 H 150 H (17-59) U/L ALT 39 45 (6-50) U/L Alkaline Phosphatase 97 86 (38-126) U/L Albumin 3.0 L 2.3 L (3.5-5.1) g/dL Urine 05/16/24 Range/Units 15:16 Urine Color Dark yellow (Yellow) Urine Appearance Turbid H (Clear) Urine pH 5.5 (5.0-9.0) Ur Specific [place] 1.017 (1.001-1.035) Urine Protein 2+ H (Negative) mg/dL Urine Glucose (UA) Negative (Negative) mg/dL Hospitalist MIPS Advance Care Plan I have confirmed that the patient's Advanced Care Plan is present, code status is documented, or surrogate decision maker is listed in patient medical record.: Yes Medication Reconciliation I have utilized all available resources to obtain, update and review the patients current medications (includes all prescriptions, OTC, herbals, cannabis, and nutritional supplements).: Yes
[2024-05-17 10:54] LABS: Glucose Point of Care 332 mg/dl (65-105)
[2024-05-17 18:34] LABS: Glucose Point of Care 224 mg/dl (65-105)
[2024-05-17 22:42] LABS: Glucose Point of Care 254 mg/dl (65-105)
[2024-05-18] VITALS (8 sets, daily range): BP systolic 129–142; BP diastolic 69–81; PULSE 76–89; RESP 15–21; TEMP 36.5–36.6; O2SAT 99–100
[2024-05-18 01:40] LABS: Glucose Point of Care 188 mg/dl (65-105)
[2024-05-18 04:14] LABS: Hematocrit 24.3 % (42.0-52.0); Hemoglobin 8.5 g/dL (14.0-18.0); Mean Corpuscular Hemoglobin 33.9 pg (26-34); Mean Corpuscular Volume 96.8 fl (80-100); Mean Platelet Volume 10.7 fl (7.4-10.4); Platelet Count Result 113 k/mm3 (150-375); Red Blood Count 2.51 M/mm3 (4.6-6.20); Red Cell Distribution Width 17.8 % (11.5-14.5)
[2024-05-18 04:33] LABS: Alanine Aminotransferase 63 U/L (6-50); Albumin Level 2.4 g/dL (3.5-5.1); Alkaline Phosphatase 105 U/L (38-126); Anion Gap 5 mmol/L (4-12); Aspartate Amino Transferase 155 U/L (17-59); Bilirubin,Total 1.1 mg/dL (0.2-1.3); Blood Urea Nitrogen 34 mg/dL (9-20); Calcium 8.1 mg/dL (8.4-10.2); Carbon Dioxide 23 mmol/L (22-30); Chloride 109 mmol/L (98-107); Estimated CRCL calculation 30 ml/min; Estimated Glomerular Filt Rate > 60; Glucose 167 mg/dL (65-110); Magnesium 2.2 mg/dL (1.6-2.3); Phosphorus 2.8 mg/dL (2.5-4.5); Potassium 3.6 mmol/L (3.4-5.0); Sodium 137 mmol/L (137-145)
[2024-05-18 04:34] LABS: Band Neutrophils Percent 6 % (0-6); Lymphocytes Absolute Manual 0.65 K/mm3 (1.1-4.5); Lymphocytes Percent Manual 5 % (18-44); Monocytes Absolute Manual 0.39 K/mm3 (0.1-0.90); Monocytes Percent Manual 3 % (3-9); Neutrophils Absolute Manual 11.96 K/mm3 (1.3-6.7); Neutrophils Percent Manual 86 % (46-73); Platelet Estimate Decreased (Adequate); Total Cells Counted 100
[2024-05-18 04:35] LABS: Anisocytosis 1+; Hypochromasia 1+; Schistocytes None Seen; Target Cells 1+
[2024-05-18] MEDS: MEROPENEM 1 GM/NS 100 ML 1 GM/100 ML BAG IVPB ×2 (06:57→17:33)
[2024-05-18 07:49] LABS: Glucose Point of Care 146 mg/dl (65-105)
[2024-05-18] MEDS: HEPARIN SODIUM 5,000 UNITS/ML VIAL 5000 UNITS SUB-Q ×2 (09:07→22:07)
--- NOTE | 2024-05-18 13:14 | WPDINTPN ---
Progress Note: A&P Assessment and Plan (1) Septic shock: Code(s): A41.9 - Sepsis, unspecified organism; R65.21 - Severe sepsis with septic shock Status: Acute Assessment and Plan: Septic shock likely related UTI, kidney stone hydronephrosis -patient presented with generalized weakness, fall -was found to be hypotensive in the ER, requiring central line placement and starting vasopressors after fluid challenge -off Levophed since morning of 05/17 -urine output has been adequate, creatinine is stable -05/16/2024: Blood cultures growing E coli, 2/2 bottles -05/16/2024: Urine cultures are E coli, pansensitive -continue meropenem, (05/16) (2) UTI (urinary tract infection): Code(s): N39.0 - Urinary tract infection, site not specified Status: Acute Assessment and Plan: UTI likely related to kidney stones -urine cultures as above, continue antibiotics (3) Ureteral stone: Code(s): N20.1 - Calculus of ureter Status: Acute Assessment and Plan: CT scan of the abdomen pelvis showed left ureteral stone with left hydronephrosis, status post cystoscopy and left ureteral stent placement -urology following the patient -Munoz catheter in place -continue antibiotics as above (4) Hydronephrosis: Code(s): N13.30 - Unspecified hydronephrosis Status: Acute Assessment and Plan: As above (5) Hypoglycemia: Code(s): E16.2 - Hypoglycemia, unspecified Status: Acute Assessment and Plan: Patient was found to be hypoglycemic at home upon EMS arrival, was given D50, with night patient was hypo glycemic also requiring [id number] -switch the D5 to D10 infusion at 50 mL/hour this morning as patient has received significant amount of IV fluids -could be related to septic shock, patient does have a history of diabetes and took is oral hypoglycemics have been lingering in the system -blood sugars on D10 infusion are elevated, will DC D10 infusion and monitor Accu-Cheks closely -off D10 infusion on 05/17. Blood sugars have been stable -and Accu-Cheks and sliding scale insulin (6) Fall: Code(s): W19.XXXA - Unspecified fall, initial encounter Status: Acute Assessment and Plan: Patient had a fall could be related to hypotension, infection, patient does take losartan at home -continue to monitor, will require PT/OT when he is off pressors -PT/OT has been ordered CT brain on admission:. 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 Plan DVT prophylaxis: Heparin Stress ulcer prophylaxis: Not indicated Nutrition: Regular diet Code Status: Full code Critical Care Time Spent: 33 minutes PT/OT has been ordered Discussed with hospitalist, okay to transfer patient to medical floor Due to a high probability of clinically significant, life threatening deterioration, the patient required my highest level of preparedness to intervene emergently and I personally spent this critical care time directly and personally managing the patient. This critical care time included obtaining a history; examining the patient; pulse oximetry; ordering and review of studies; arranging urgent treatment with development of a management plan; evaluation of patient's response to treatment; frequent reassessment; and discussions with other providers. It was exclusive of separately billable procedures and treating other patients and teaching time. Please see Assessment and Plan section and the rest of the note for further information on patient assessment and treatment This dictation may have been done utilizing a voice recognition system. Attempts have been made to correct errors. However, there may be uncorrected grammatical, spelling, and recognitions errors present. Subjective Date/time seen: 05/18/24 13:14 Interval history: Reason for consult: Septic shock, obstructing left ureteral stone status post cystoscopy, left ureteral stent placement on 05/16/2024 05/18/2024: Patient seen and examined the ICU, is awake, alert, oriented. Pleasant gentleman in no acute distress, denies any chest pain, shortness to Gabriella, abdominal pain, nausea, vomiting. Patient has been off Levophed since the morning of 05/17. Urine output has been adequate hemodynamically stable, afebrile. WBC count trending down, renal function has normalized Review of Systems Review of Systems: All systems reviewed & are unremarkable except as noted in HPI and below Exam Narrative: General: Pleasant gentleman in no acute distress HEENT:? Pupils are equal and reactive, sclerae is clear Neck:? Supple Respiratory:? Coarse breath sounds bilaterally, decreased at bases, adequate air entry, no wheeze Cardiac:? S1-S2 normal, regular rate and rhythm Abdomen:? Soft, nontender, nondistended, normoactive bowel sound Extremities:? No edema, palpable pedal pulses Neuro:, patient awake, alert, answers to questions appropriately and follows simple commands in all extremities Skin:? Warm and dry Psych:? Normal mentation and affect Objective Data Vital Signs Vital Signs: Vital Signs - 24 hr 05/17/24 14:00 05/17/24 14:00 05/17/24 16:00 Temperature 97.8 F Pulse Rate 90 90 78 Respiratory Rate 22 H Blood Pressure 115/74 Pulse Oximetry 99 Oxygen Delivery 05/17/24 16:00 05/17/24 16:00 05/17/24 18:00 Temperature 97.7 F Pulse Rate 78 78 91 Respiratory Rate 19 19 Blood Pressure 118/70 Pulse Oximetry 97 97 Oxygen Delivery Room Air 05/17/24 18:00 05/17/24 20:00 05/17/24 22:00 Temperature 97.8 F Pulse Rate 91 84 76 Respiratory Rate 22 H Blood Pressure 118/72 Pulse Oximetry 99 Oxygen Delivery 05/17/24 20:00 05/17/24 22:00 05/17/24 20:00 Temperature 97.7 F Pulse Rate 84 76 Respiratory Rate 11 L 16 Blood Pressure 136/67 130/69 Pulse Oximetry 95 99 Oxygen Delivery Room Air 05/18/24 00:00 05/18/24 02:00 05/18/24 00:00 Temperature Pulse Rate 76 80 Respiratory Rate Blood Pressure Pulse Oximetry Oxygen Delivery Room Air 05/18/24 00:00 05/18/24 02:00 05/18/24 04:00 Temperature 97.8 F 97.7 F Pulse Rate 76 76 78 Respiratory Rate 15 15 16 Blood Pressure 129/81 136/75 137/81 Pulse Oximetry 99 99 100 Oxygen Delivery 05/18/24 04:00 05/18/24 04:00 05/18/24 06:00 Temperature Pulse Rate 85 84 Respiratory Rate Blood Pressure Pulse Oximetry Oxygen Delivery Room Air 05/18/24 06:00 05/18/24 08:00 05/18/24 08:00 Temperature 97.8 F Pulse Rate 84 89 89 Respiratory Rate 16 21 H Blood Pressure 142/81 H 136/81 Pulse Oximetry 100 100 Oxygen Delivery 05/18/24 08:00 05/18/24 10:00 Temperature Pulse Rate 85 Respiratory Rate Blood Pressure Pulse Oximetry 100 Oxygen Delivery Room Air Intake/Output Intake/Output: Intake & Output 10/05/16/24 05/17/24 05/18/24 23:59 23:59 23:59 23:59 Intake Total 2068.3 1716.5 370 Output Total 1900 700 Balance 2068.3 -183.5 -330 Meds/Results Medications: Active Medications Generic Name Dose Route Start Last Admin Trade Name Freq PRN Reason Stop Dose Admin Dextrose 12.5 gm 05/16/24 18:49 05/16/24 23:49 Dextrose 50% 25 Gm/50 Ml Syringe IV PUSH 12.5 gm PRN PRN Administration Hypoglycemia Protocol Glucagon 1 mg 05/16/24 18:49 Glucagon For Inj 1 Mg Vial IM PRN PRN Hypoglycemia Protocol Glucose 15 gm 05/16/24 18:49 Glucose Oral Gel 15 Gm Of Glucse In 37.5 Gm Tube PO PRN PRN Hypoglycemia Protocol Heparin Sodium (Porcine) 5,000 units 05/17/24 09:00 05/18/24 09:07 Heparin Sodium 5,000 Units/Ml Vial SUB-Q 5,000 units Q12HR BIGG Administration Meropenem 1 gm in 100 mls @ 200 mls/hr 05/17/24 06:00 05/18/24 06:57 IVPB 200 mls/hr Q12H BIGG Administration Dextrose 1,000 mls @ 100 mls/hr 05/16/24 18:49 Dextrose 5% 1,000 Ml IVPB PRN PRN Hypoglycemia Protocol Radiology Results: ITS Impressions Head CT 05/16/24 13:47 IMPRESSION: 1. 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 Chest/Abdomen/Pelvis CT 05/16/24 15:53 IMPRESSION: 1. 5 mm stone in distal left ureter with moderate left hydronephrosis and hydroureter. 2. 3 mm bladder stone. 3. 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 Chest X-Ray 05/16/24 17:25 IMPRESSION: Cardiomegaly with cardiac decompensation and pulmonary edema. Pneumonia in the right upper and lower lobe and left lower lobe. Underlying fibrotic changes. Retrograde Pyelogram 05/17/24 07:44 IMPRESSION: 1. Mild left hydronephrosis. Left internal ureteral stent in expected position. Labs Labs: Laboratory Results - last 24 hr 05/17/24 05/17/24 05/18/24 18:30 22:38 01:36 WBC RBC Hgb Hct MCV MCH MCHC RDW Plt Count MPV Immature Gran % (Auto) Neut % (Auto) Lymph % (Auto) [place] % (Auto) Eos % (Auto) Baso % (Auto) Lymph # (Auto) [place] # (Auto) Eos # (Auto) Baso # (Auto) Abs Immat Gran (auto) Absolute Neuts (auto) Absolute Nucleated RBC Total Counted Neutrophils % (Manual) Band Neutrophils % Lymphocytes % (Manual) Monocytes % (Manual) Nucleated RBC % Abs Neuts (Manual) Abs Lymphs (Manual) Abs Monocytes (Manual) Platelet Estimate Hypochromasia Anisocytosis Target Cells Schistocytes Sodium Potassium Chloride Carbon Dioxide Anion Gap BUN Creatinine Estim Creat Clear Calc Estimated GFR Glucose POC Capillary Glucose 224 H 254 H 188 H Lactic Acid Calcium Phosphorus Magnesium Total Bilirubin AST ALT Alkaline Phosphatase Total Protein Albumin 05/18/24 05/18/24 03:58 07:46 WBC 13.0 H RBC 2.51 L Hgb 8.5 L Hct 24.3 L MCV 96.8 MCH 33.9 MCHC 35.0 RDW 17.8 H Plt Count 113 L MPV 10.7 H Immature Gran % (Auto) Not Reportable Neut % (Auto) Not Reportable Lymph % (Auto) Not Reportable [place] % (Auto) Not Reportable Eos % (Auto) Not Reportable Baso % (Auto) Not Reportable Lymph # (Auto) Not Reportable [place] # (Auto) Not Reportable Eos # (Auto) Not Reportable Baso # (Auto) Not Reportable Abs Immat Gran (auto) Not Reportable Absolute Neuts (auto) Not Reportable Absolute Nucleated RBC Not Reportable Total Counted 100 Neutrophils % (Manual) 86 H Band Neutrophils % 6 Lymphocytes % (Manual) 5 L Monocytes % (Manual) 3 Nucleated RBC % Not Reportable Abs Neuts (Manual) 11.96 H Abs Lymphs (Manual) 0.65 L Abs Monocytes (Manual) 0.39 Platelet Estimate Decreased Hypochromasia 1+ Anisocytosis 1+ Target Cells 1+ Schistocytes None seen Sodium 137 Potassium 3.6 Chloride 109 H Carbon Dioxide 23 Anion Gap 5 BUN 34 H Creatinine 1.10 Estim Creat Clear Calc 30 Estimated GFR > 60 Glucose 167 H POC Capillary Glucose 146 H Lactic Acid 1.0 Calcium 8.1 L Phosphorus 2.8 Magnesium 2.2 Total Bilirubin 1.1 AST 155 H ALT 63 H Alkaline Phosphatase 105 Total Protein 6.0 L Albumin 2.4 L Quality VTE Prophylaxis VTE prophylaxis: mechanical ordered and pharmacologic ordered
[2024-05-18] MEDS: ACETAMINOPHEN 325 MG TABLET 650 MG PO (16:33)
[2024-05-18 17:01] LABS: Glucose Point of Care 287 mg/dl (65-105)
[2024-05-18] MEDS: INSULIN ASPART (*BKC) 100 UNITS/ML SUB-Q (17:32)
[2024-05-18 20:47] LABS: Glucose Point of Care 137 mg/dl (65-105)
[2024-05-19] VITALS: BP 137/77; PULSE 78; RESP 20; TEMP 36.6; O2SAT 99
[2024-05-19] MEDS: ACETAMINOPHEN 325 MG TABLET 650 MG PO ×4 (01:21→20:13)
[2024-05-19] MEDS: MEROPENEM 1 GM/NS 100 ML 1 GM/100 ML BAG IVPB (06:58)
[2024-05-19 07:42] LABS: Basophils Percent Auto 0.5 % (0.2-1.2); Eosinophils Absolute Auto 0.1 K/mm3 (0-0.3); Eosinophils Percent Auto 1.8 % (0-4.4); Hematocrit 25.3 % (42.0-52.0); Hemoglobin 8.7 g/dL (14.0-18.0); Immature Granulocyte Absolute 0.03 K/mm3 (0.00-0.031); Immature Granulocyte Percent A 0.5 % (0-0.5); Immature Platelet Fraction Pct 3.9 % (0.9-11.2); Lymphocytes Absolute Auto 1.02 K/mm3 (0.9-3.2); Lymphocytes Percent Auto 15.7 % (18.3-44.2); Mean Corpuscular HGB Conc 34.4 g/dl (32-36); Mean Corpuscular Hemoglobin 33.5 pg (26-34); Mean Corpuscular Volume 97.3 fl (80-100); Mean Platelet Volume 10.9 fl (7.4-10.4); Monocytes Absolute Auto 0.4 K/mm3 (0.1-0.6); Monocytes Percent Auto 6.6 % (2.6-8.5); Neutrophils Absolute Auto 4.9 K/mm3 (1.3-6.7); Neutrophils Percent Auto 74.9 % (45.5-73.1); Platelet Count Result 98 k/mm3 (150-375); Red Cell Distribution Width 17.2 % (11.5-14.5); White Blood Count 6.5 K/mm3 (4.5-10.0)
[2024-05-19 07:50] LABS: Alanine Aminotransferase 70 U/L (6-50); Albumin Level 2.5 g/dL (3.5-5.1); Alkaline Phosphatase 88 U/L (38-126); Anion Gap 6 mmol/L (4-12); Aspartate Amino Transferase 117 U/L (17-59); Bilirubin,Total 1.1 mg/dL (0.2-1.3); Blood Urea Nitrogen 35 mg/dL (9-20); Calcium 8.3 mg/dL (8.4-10.2); Carbon Dioxide 25 mmol/L (22-30); Chloride 108 mmol/L (98-107); Estimated CRCL calculation 33 ml/min; Estimated Glomerular Filt Rate > 60; Glucose 117 mg/dL (65-110); Magnesium 2.1 mg/dL (1.6-2.3); Phosphorus 2.5 mg/dL (2.5-4.5); Potassium 3.5 mmol/L (3.4-5.0); Sodium 139 mmol/L (137-145)
[2024-05-19 08:00] VITALS: BP 139/72; PULSE 89; RESP 14; O2SAT 100
[2024-05-19] MEDS: HEPARIN SODIUM 5,000 UNITS/ML VIAL 5000 UNITS SUB-Q (09:32)
[2024-05-19] MEDS: HYDROcodone/acetaminophen (*CRX) 5-325 MG TABLET 1 TAB PO ×2 (10:52→18:15)
[2024-05-19 11:52] LABS: Glucose Point of Care 221 mg/dl (65-105)
[2024-05-19] MEDS: INSULIN ASPART (*BKC) 100 UNITS/ML SUB-Q (12:30)
--- NOTE | 2024-05-19 13:56 | PC.NURSE ---
Patient being transferred to room 246. Report given to receiving nurse Shawna. Patient being transferred via wheelchair with all belongings.
[2024-05-19 14:39] VITALS: BP 128/84; PULSE 89; RESP 16; TEMP 36.1; O2SAT 100
[2024-05-19 16:23] LABS: Glucose Point of Care 184 mg/dl (65-105)
--- NOTE | 2024-05-19 16:28 | P.PNIM_ITS ---
Progress Note: A&P Assessment and Plan (1) Septic shock: Code(s): A41.9 - Sepsis, unspecified organism; R65.21 - Severe sepsis with septic shock Status: Acute Assessment and Plan: Septic shock likely related UTI, kidney stone hydronephrosis -patient presented with generalized weakness, fall off levophed urine and blood culture postiive for pansensitive E coli CT AP showed: 1. 5 mm stone in distal left ureter with moderate left hydronephrosis and hydroureter. 2. 3 mm bladder stone. S/p left ureteral stent Continue Levaquin x 14 days total (2) UTI (urinary tract infection): Code(s): N39.0 - Urinary tract infection, site not specified Status: Acute Assessment and Plan: UTI likely related to kidney stones -urine cultures as above, continue antibiotics S/p left ureteral stent urology appreciate input (3) Ureteral stone: Code(s): N20.1 - Calculus of ureter Status: Acute Assessment and Plan: CT scan of the abdomen pelvis showed left ureteral stone with left hydronephrosis, status post cystoscopy and left ureteral stent placement -urology following the patient -Munoz catheter in place -continue antibiotics as above (4) Hydronephrosis: Code(s): N13.30 - Unspecified hydronephrosis Status: Acute Assessment and Plan: As above (5) Hypoglycemia: Code(s): E16.2 - Hypoglycemia, unspecified Status: Acute Assessment and Plan: Patient was found to be hypoglycemic at home upon EMS arrival, was given D50, with night patient was hypo glycemic also requiring [id number] -switch the D5 to D10 infusion at 50 mL/hour this morning as patient has received significant amount of IV fluids -could be related to septic shock, patient does have a history of diabetes and took is oral hypoglycemics have been lingering in the system -blood sugars on D10 infusion are elevated, will DC D10 infusion and monitor Accu-Cheks closely -off D10 infusion on 05/17. Blood sugars have been stable -and Accu-Cheks and sliding scale insulin resolved, monitor (6) Fall: Code(s): W19.XXXA - Unspecified fall, initial encounter Status: Acute Assessment and Plan: Patient had a fall could be related to hypotension, infection, patient does take losartan at home -continue to monitor, will require PT/OT when he is off pressors -PT/OT following and recommended rehab CT brain on admission:. 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 Plan Right knee pain Xray showed possible avulsion fracture of the meniscus vs cruciate ligament MRI knee ordered contineu PRN pain control and PT/OT DVT prophylaxis: Heparin Stress ulcer prophylaxis: Not indicated Nutrition: Regular diet Code Status: Full code Subjective Date/time seen: 05/19/24 16:28 Interval history: patient comfortable at bedside stated knee pain, xray right knee Small linear calcific density projecting over the intercondylar eminence suspicious for avulsion fracture fragment either of the cruciate ligaments or less likely a meniscal root. Review of Systems Review of Systems: All systems reviewed & are unremarkable except as noted in HPI and below ROS unobtainable: Yes unobtainable due to mental status and other ( refusal) Exam Narrative: General: Pleasant gentleman in no acute distress HEENT:? Pupils are equal and reactive, sclerae is clear Neck:? Supple Respiratory:? Coarse breath sounds bilaterally, decreased at bases, adequate air entry, no wheeze Cardiac:? S1-S2 normal, regular rate and rhythm Abdomen:? Soft, nontender, nondistended, normoactive bowel sound Extremities:? No edema, palpable pedal pulses, no tenderness Neuro:, patient awake, alert, answers to questions appropriately and follows simple commands in all extremities Skin:? Warm and dry Psych:? Normal mentation and affect Objective Data Vital Signs Vital Signs: Vital Signs - 24 hr 05/18/24 20:00 05/19/24 00:00 05/19/24 08:00 Temperature 97.8 F Pulse Rate 89 78 Respiratory Rate 16 20 Blood Pressure 137/77 Pulse Oximetry 100 99 Oxygen Delivery Room Air Room Air 05/19/24 08:00 05/19/24 14:39 Temperature 97 F L Pulse Rate 89 89 Respiratory Rate 14 16 Blood Pressure 139/72 128/84 Pulse Oximetry 100 100 Oxygen Delivery Intake/Output Intake/Output: Intake & Output 05/16/24 05/17/24 05/18/24 05/19/24 23:59 23:59 23:59 23:59 Intake Total 2068.3 1716.5 690 220 Output Total 1900 1100 500 Balance 2068.3 -183.5 -410 -280 Meds/Results Medications: Active Medications Generic Name Dose Route Start Last Admin Trade Name Freq PRN Reason Stop Dose Admin Acetaminophen 650 mg 05/18/24 16:21 05/19/24 15:28 Acetaminophen 325 Mg Tablet PO 650 mg Q4H PRN Administration Pain or Fever Hydrocodone Bitart/Acetaminophen 1 tab 05/19/24 10:25 05/19/24 10:52 Hydrocodone/Acetaminophen (*Crx) 5-325 Mg Tablet PO 1 tab Q6H PRN Administration Pain Rated 4-6 Dextrose 12.5 gm 05/16/24 18:49 05/16/24 23:49 Dextrose 50% 25 Gm/50 Ml Syringe IV PUSH 12.5 gm PRN PRN Administration Hypoglycemia Protocol Glucagon 1 mg 05/16/24 18:49 Glucagon For Inj 1 Mg Vial IM PRN PRN Hypoglycemia Protocol Glucose 15 gm 05/16/24 18:49 Glucose Oral Gel 15 Gm Of Glucse In 37.5 Gm Tube PO PRN PRN Hypoglycemia Protocol Heparin Sodium (Porcine) 5,000 units 05/17/24 09:00 05/19/24 09:32 Heparin Sodium 5,000 Units/Ml Vial SUB-Q 5,000 units Q12HR BIGG Administration Dextrose 1,000 mls @ 100 mls/hr 05/16/24 18:49 Dextrose 5% 1,000 Ml IVPB PRN PRN Hypoglycemia Protocol Insulin Aspart 3 - 6 units 05/18/24 17:00 05/19/24 16:26 Insulin Aspart (*Bkc) 100 Units/Ml SUB-Q Not Given TIDWM BIGG Protocol Insulin Aspart 1 - 3 units 05/18/24 21:00 05/18/24 21:15 Insulin Aspart (*Bkc) 100 Units/Ml SUB-Q Not Given HS [facility] Protocol Levofloxacin 750 mg 05/19/24 18:00 Levofloxacin 750 Mg Tablet PO 05/23/24 18:01 Q48H BIGG Polyethylene Glycol 17 gm 05/19/24 10:25 Polyethylene Glycol 3350 17 Gm Powd.Pack PO QAM PRN Constipation Radiology Results: ITS Impressions Head CT 05/16/24 13:47 IMPRESSION: 1. 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 Chest/Abdomen/Pelvis CT 05/16/24 15:53 IMPRESSION: 1. 5 mm stone in distal left ureter with moderate left hydronephrosis and hydroureter. 2. 3 mm bladder stone. 3. 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 Chest X-Ray 05/16/24 17:25 IMPRESSION: Cardiomegaly with cardiac decompensation and pulmonary edema. Pneumonia in the right upper and lower lobe and left lower lobe. Underlying fibrotic changes. Retrograde Pyelogram 05/17/24 07:44 IMPRESSION: 1. Mild left hydronephrosis. Left internal ureteral stent in expected position. Femur X-Ray 05/18/24 19:08 IMPRESSION: No acute osseous finding in the right hip or right femur. Hip X-Ray 05/18/24 19:08 IMPRESSION: No acute osseous finding in the right hip or right femur. Knee X-Ray 05/19/24 13:18 IMPRESSION: 1. Small linear calcific density projecting over the intercondylar eminence suspicious for avulsion fracture fragment either of the cruciate ligaments or less likely a meniscal root. Could consider MRI for more definitive determination as clinically indicated. Labs Labs: Laboratory Results - last 24 hr 05/18/24 05/18/24 05/19/24 16:59 20:40 07:13 WBC 6.5 RBC 2.60 L Hgb 8.7 L Hct 25.3 L MCV 97.3 MCH 33.5 MCHC 34.4 RDW 17.2 H Plt Count 98 L MPV 10.9 H Immature Gran % (Auto) 0.5 Neut % (Auto) 74.9 H Lymph % (Auto) 15.7 L [place] % (Auto) 6.6 Eos % (Auto) 1.8 Baso % (Auto) 0.5 Lymph # (Auto) 1.02 [place] # (Auto) 0.4 Eos # (Auto) 0.1 Baso # (Auto) 0.0 Abs Immat Gran (auto) 0.03 Absolute Neuts (auto) 4.9 Absolute Nucleated RBC 0.000 Nucleated RBC % 0.0 % Immature Plt Fraction 3.9 Sodium 139 Potassium 3.5 Chloride 108 H Carbon Dioxide 25 Anion Gap 6 BUN 35 H Creatinine 1.00 Estim Creat Clear Calc 33 Estimated GFR > 60 Glucose 117 H POC Capillary Glucose 287 H 137 H Calcium 8.3 L Phosphorus 2.5 Magnesium 2.1 Total Bilirubin 1.1 AST 117 H ALT 70 H Alkaline Phosphatase 88 Total Protein 6.0 L Albumin 2.5 L 05/19/24 05/19/24 11:44 16:20 WBC RBC Hgb Hct MCV MCH MCHC RDW Plt Count MPV Immature Gran % (Auto) Neut % (Auto) Lymph % (Auto) [place] % (Auto) Eos % (Auto) Baso % (Auto) Lymph # (Auto) [place] # (Auto) Eos # (Auto) Baso # (Auto) Abs Immat Gran (auto) Absolute Neuts (auto) Absolute Nucleated RBC Nucleated RBC % % Immature Plt Fraction Sodium Potassium Chloride Carbon Dioxide Anion Gap BUN Creatinine Estim Creat Clear Calc Estimated GFR Glucose POC Capillary Glucose 221 H 184 H Calcium Phosphorus Magnesium Total Bilirubin AST ALT Alkaline Phosphatase Total Protein Albumin Quality VTE Prophylaxis VTE prophylaxis: mechanical ordered and pharmacologic ordered
[2024-05-19] MEDS: levoFLOXacin 750 MG TABLET PO (17:15)
[2024-05-19 18:36] LABS: Iron 68 ug/dL (49-181)
[2024-05-19 18:45] LABS: Percent Iron Saturation 31 % (20-50)
[2024-05-19 19:32] VITALS: BP 142/82; PULSE 87; RESP 16; TEMP 36.7; O2SAT 97
[2024-05-19 21:08] LABS: Glucose Point of Care 169 mg/dl (65-105)
[2024-05-20] VITALS: BP 142/85; PULSE 79; RESP 16; TEMP 36.2; O2SAT 92
[2024-05-20] MEDS: HYDROcodone/acetaminophen (*CRX) 5-325 MG TABLET 1 TAB PO ×4 (00:17→21:33)
[2024-05-20] MEDS: ACETAMINOPHEN 325 MG TABLET 650 MG PO ×4 (03:52→23:39)
[2024-05-20 06:00] VITALS: BP 157/91; PULSE 81; RESP 16; TEMP 36.1; O2SAT 99
[2024-05-20 07:11] LABS: Alanine Aminotransferase 62 U/L (6-50); Albumin Level 2.3 g/dL (3.5-5.1); Alkaline Phosphatase 78 U/L (38-126); Anion Gap 7 mmol/L (4-12); Aspartate Amino Transferase 91 U/L (17-59); Bilirubin,Total 0.7 mg/dL (0.2-1.3); Blood Urea Nitrogen 38 mg/dL (9-20); Calcium 8.3 mg/dL (8.4-10.2); Carbon Dioxide 23 mmol/L (22-30); Chloride 108 mmol/L (98-107); Estimated CRCL calculation 33 ml/min; Estimated Glomerular Filt Rate > 60; Glucose 131 mg/dL (65-110); Magnesium 1.9 mg/dL (1.6-2.3); Potassium 3.8 mmol/L (3.4-5.0); Sodium 138 mmol/L (137-145)
[2024-05-20 08:08] LABS: Glucose Point of Care 141 mg/dl (65-105)
[2024-05-20 08:38] LABS: Basophils Percent Auto 0.8 % (0.2-1.2); Eosinophils Absolute Auto 0.1 K/mm3 (0-0.3); Eosinophils Percent Auto 2.4 % (0-4.4); Hematocrit 26.6 % (42.0-52.0); Hemoglobin 8.9 g/dL (14.0-18.0); Immature Granulocyte Absolute 0.04 K/mm3 (0.00-0.031); Immature Granulocyte Percent A 1.1 % (0-0.5); Immature Platelet Fraction Pct 4.6 % (0.9-11.2); Lymphocytes Absolute Auto 0.95 K/mm3 (0.9-3.2); Mean Corpuscular HGB Conc 33.5 g/dl (32-36); Mean Corpuscular Hemoglobin 32.7 pg (26-34); Mean Corpuscular Volume 97.8 fl (80-100); Mean Platelet Volume 11.5 fl (7.4-10.4); Monocytes Absolute Auto 0.5 K/mm3 (0.1-0.6); Monocytes Percent Auto 12.6 % (2.6-8.5); Neutrophils Absolute Auto 2.2 K/mm3 (1.3-6.7); Neutrophils Percent Auto 58.1 % (45.5-73.1); Platelet Count Result 99 k/mm3 (150-375); Red Blood Count 2.72 M/mm3 (4.6-6.20); Red Cell Distribution Width 17.2 % (11.5-14.5); White Blood Count 3.8 K/mm3 (4.5-10.0)
[2024-05-20 08:45] LABS: Platelet Estimate Slightly Decreased (Adequate)
[2024-05-20 08:46] LABS: Anisocytosis 1+; Schistocytes Rare; Target Cells 1+
[2024-05-20 08:47] LABS: Atypical Lymphocytes Present
[2024-05-20] MEDS: HEPARIN SODIUM 5,000 UNITS/ML VIAL 5000 UNITS SUB-Q (09:05)
[2024-05-20 11:32] LABS: Glucose Point of Care 165 mg/dl (65-105)
--- NOTE | 2024-05-20 12:33 | PM.IMPN ---
Progress Note: A&P Assessment and Plan (1) Septic shock: Code(s): A41.9 - Sepsis, unspecified organism; R65.21 - Severe sepsis with septic shock Status: Acute Assessment and Plan: Septic shock likely related UTI, kidney stone hydronephrosis -patient presented with generalized weakness, fall off levophed urine and blood culture postiive for pansensitive E coli CT AP showed: 1. 5 mm stone in distal left ureter with moderate left hydronephrosis and hydroureter. 2. 3 mm bladder stone. S/p left ureteral stent Continue Levaquin x 14 days total (2) UTI (urinary tract infection): Code(s): N39.0 - Urinary tract infection, site not specified Status: Acute Assessment and Plan: UTI likely related to kidney stones -urine cultures as above, continue antibiotics S/p left ureteral stent urology appreciate input (3) Ureteral stone: Code(s): N20.1 - Calculus of ureter Status: Acute Assessment and Plan: CT scan of the abdomen pelvis showed left ureteral stone with left hydronephrosis, status post cystoscopy and left ureteral stent placement -urology following the patient -removed Munoz -continue antibiotics as above (4) Hydronephrosis: Code(s): N13.30 - Unspecified hydronephrosis Status: Acute Assessment and Plan: As above (5) Hypoglycemia: Code(s): E16.2 - Hypoglycemia, unspecified Status: Acute Assessment and Plan: resolved S/p Dextrose infusion now on adequate oral intake -and Accu-Cheks and sliding scale insulin resolved, monitor (6) Fall: Code(s): W19.XXXA - Unspecified fall, initial encounter Status: Acute Assessment and Plan: Patient had a fall could be related to hypotension, infection, patient does take losartan at home -continue to monitor, will require PT/OT when he is off pressors -PT/OT following and recommended rehab CT brain on admission:. 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 Plan Right knee pain MRI knee showed medial meniscus tear MRI reviewed ortho consulted continue PRN pain control and PT/OT DVT prophylaxis: Heparin Stress ulcer prophylaxis: Not indicated Nutrition: Regular diet Code Status: Full code Subjective Date/time seen: 05/20/24 12:33 Interval history: Patient comfortable at bedside and MRI knee showed medial meniscus tear Ortho consulted Review of Systems Review of Systems: All systems reviewed & are unremarkable except as noted in HPI and below ROS unobtainable: Yes unobtainable due to mental status and other ( refusal) Exam Narrative: General: Pleasant gentleman in no acute distress HEENT:? Pupils are equal and reactive, sclerae is clear Neck:? Supple Respiratory:? Coarse breath sounds bilaterally, decreased at bases, adequate air entry, no wheeze Cardiac:? S1-S2 normal, regular rate and rhythm Abdomen:? Soft, nontender, nondistended, normoactive bowel sound Extremities:? No edema, palpable pedal pulses, no tenderness Neuro:, patient awake, alert, answers to questions appropriately and follows simple commands in all extremities Skin:? Warm and dry Psych:? Normal mentation and affect Objective Data Vital Signs Vital Signs: Vital Signs - 24 hr 05/19/24 14:39 05/19/24 19:32 05/19/24 20:00 Temperature 97 F L 98.1 F Pulse Rate 89 87 Respiratory Rate 16 16 Blood Pressure 128/84 142/82 H Pulse Oximetry 100 97 Oxygen Delivery Room Air 05/20/24 00:00 05/20/24 06:00 05/20/24 08:00 Temperature 97.1 F L 97.0 F L Pulse Rate 79 81 Respiratory Rate 16 16 Blood Pressure 142/85 H 157/91 H Pulse Oximetry 92 99 Oxygen Delivery Room Air Intake/Output Intake/Output: Intake & Output 05/17/24 05/18/24 05/19/24 05/20/24 23:59 23:59 23:59 23:59 Intake Total 1716.5 690 340 340 Output Total 1900 1100 500 100 Balance -183.5 -410 -160 240 Meds/Results Medications: Active Medications Generic Name Dose Route Start Last Admin Trade Name Freq PRN Reason Stop Dose Admin Acetaminophen 650 mg 05/18/24 16:21 05/20/24 09:03 Acetaminophen 325 Mg Tablet PO 650 mg Q4H PRN Administration Pain or Fever Hydrocodone Bitart/Acetaminophen 1 tab 05/19/24 10:25 05/20/24 05:59 Hydrocodone/Acetaminophen (*Crx) 5-325 Mg Tablet PO 1 tab Q6H PRN Administration Pain Rated 4-6 Dextrose 12.5 gm 05/16/24 18:49 05/16/24 23:49 Dextrose 50% 25 Gm/50 Ml Syringe IV PUSH 12.5 gm PRN PRN Administration Hypoglycemia Protocol Glucagon 1 mg 05/16/24 18:49 Glucagon For Inj 1 Mg Vial IM PRN PRN Hypoglycemia Protocol Glucose 15 gm 05/16/24 18:49 Glucose Oral Gel 15 Gm Of Glucse In 37.5 Gm Tube PO PRN PRN Hypoglycemia Protocol Heparin Sodium (Porcine) 5,000 units 05/17/24 09:00 05/20/24 09:05 Heparin Sodium 5,000 Units/Ml Vial SUB-Q 5,000 units Q12HR BIGG Administration Dextrose 1,000 mls @ 100 mls/hr 05/16/24 18:49 Dextrose 5% 1,000 Ml IVPB PRN PRN Hypoglycemia Protocol Insulin Aspart 3 - 6 units 05/18/24 17:00 05/20/24 12:25 Insulin Aspart (*Bkc) 100 Units/Ml SUB-Q Not Given TIDWM BIGG Protocol Insulin Aspart 1 - 3 units 05/18/24 21:00 05/19/24 21:17 Insulin Aspart (*Bkc) 100 Units/Ml SUB-Q Not Given HS BIGG Protocol Levofloxacin 750 mg 05/19/24 18:00 05/19/24 17:15 Levofloxacin 750 Mg Tablet PO 05/23/24 18:01 750 mg Q48H BIGG Administration Polyethylene Glycol 17 gm 05/19/24 10:25 Polyethylene Glycol 3350 17 Gm Powd.Pack PO QAM PRN Constipation Radiology Results: ITS Impressions Head CT 05/16/24 13:47 IMPRESSION: 1. 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 Chest/Abdomen/Pelvis CT 05/16/24 15:53 IMPRESSION: 1. 5 mm stone in distal left ureter with moderate left hydronephrosis and hydroureter. 2. 3 mm bladder stone. 3. 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 Chest X-Ray 05/16/24 17:25 IMPRESSION: Cardiomegaly with cardiac decompensation and pulmonary edema. Pneumonia in the right upper and lower lobe and left lower lobe. Underlying fibrotic changes. Retrograde Pyelogram 05/17/24 07:44 IMPRESSION: 1. Mild left hydronephrosis. Left internal ureteral stent in expected position. Femur X-Ray 05/18/24 19:08 IMPRESSION: No acute osseous finding in the right hip or right femur. Hip X-Ray 05/18/24 19:08 IMPRESSION: No acute osseous finding in the right hip or right femur. Knee X-Ray 05/19/24 13:18 IMPRESSION: 1. Small linear calcific density projecting over the intercondylar eminence suspicious for avulsion fracture fragment either of the cruciate ligaments or less likely a meniscal root. Could consider MRI for more definitive determination as clinically indicated. Knee MRI 05/20/24 11:26 IMPRESSION: 1. No fracture. 2. Mild tricompartmental chondrosis. 3. Tear of medial meniscus. 4. Small knee joint effusion. Labs Labs: Laboratory Results - last 24 hr 05/19/24 05/19/24 05/19/24 16:20 17:18 19:30 WBC RBC Hgb Hct MCV MCH MCHC RDW Plt Count MPV Immature Gran % (Auto) Neut % (Auto) Lymph % (Auto) [place] % (Auto) Eos % (Auto) Baso % (Auto) Lymph # (Auto) [place] # (Auto) Eos # (Auto) Baso # (Auto) Abs Immat Gran (auto) Absolute Neuts (auto) Absolute Nucleated RBC Nucleated RBC % Atypical Lymphocytes Platelet Estimate % Immature Plt Fraction Anisocytosis Target Cells Schistocytes Sodium Potassium Chloride Carbon Dioxide Anion Gap BUN Creatinine Estim Creat Clear Calc Estimated GFR Glucose POC Capillary Glucose 184 H 169 H Calcium Magnesium Iron 68 TIBC 221 L % Saturation 31 Ferritin 849.00 H Total Bilirubin AST ALT Alkaline Phosphatase Total Protein Albumin 05/20/24 05/20/24 05/20/24 06:31 07:42 11:30 WBC 3.8 L RBC 2.72 L Hgb 8.9 L Hct 26.6 L MCV 97.8 MCH 32.7 MCHC 33.5 RDW 17.2 H Plt Count 99 L MPV 11.5 H Immature Gran % (Auto) 1.1 H Neut % (Auto) 58.1 Lymph % (Auto) 25.0 [place] % (Auto) 12.6 H Eos % (Auto) 2.4 Baso % (Auto) 0.8 Lymph # (Auto) 0.95 [place] # (Auto) 0.5 Eos # (Auto) 0.1 Baso # (Auto) 0.0 Abs Immat Gran (auto) 0.04 H Absolute Neuts (auto) 2.2 Absolute Nucleated RBC 0.000 Nucleated RBC % 0.0 Atypical Lymphocytes Present Platelet Estimate Slightly decreased % Immature Plt Fraction 4.6 Anisocytosis 1+ Target Cells 1+ Schistocytes Rare Sodium 138 Potassium 3.8 Chloride 108 H Carbon Dioxide 23 Anion Gap 7 BUN 38 H Creatinine 1.00 Estim Creat Clear Calc 33 Estimated GFR > 60 Glucose 131 H POC Capillary Glucose 141 H 165 H Calcium 8.3 L Magnesium 1.9 Iron TIBC % Saturation Ferritin Total Bilirubin 0.7 AST 91 H ALT 62 H Alkaline Phosphatase 78 Total Protein 5.0 L Albumin 2.3 L Quality VTE Prophylaxis VTE prophylaxis: mechanical ordered and pharmacologic ordered
--- NOTE | 2024-05-20 13:11 | PCPTNOTE ---
The patient treatment was not able to be completed on 05/20/2024 due to patient waiting on Ortho consults for meniscus tear. Will plan to continue treatment per plan of care.
[2024-05-20 14:00] VITALS: BP 145/97; PULSE 79; RESP 18; TEMP 36.4; O2SAT 100
--- NOTE | 2024-05-20 15:15 | PCOTNOTE ---
Patient not seen this date. Patient had an MRI done, checking for a fracture. Per MRI results, Patient has a consult out for orthopedics. Per therapist, wait for Patient to be seen by ortho. Will check back at a later time.
--- NOTE | 2024-05-20 16:20 | P.PNUR_ITS ---
Progress Note: A&P Assessment and Plan (1) Septic shock: Code(s): A41.9 - Sepsis, unspecified organism; R65.21 - Severe sepsis with septic shock Status: Acute Assessment and Plan: ecoli in blood and urine. MDS (2) Hydronephrosis: Code(s): N13.30 - Unspecified hydronephrosis Status: Acute (3) Ureteral stone: Code(s): N20.1 - Calculus of ureter Status: Acute Assessment and Plan: stone management once acute issue resolves and infection treated Subjective Subjective Date/Time Seen: 05/20/24 16:20 Review of Systems Review of Systems: improving medically. Rehab stent in planed Exam Const: General: cooperative, alert, awake and Physically active Nutritional Appearance: thin HENMT: Head: normal to inspection Resp: Effort & Inspection: normal respiratory effort and no cough Extrem: General: normal to inspection and full ROM Psych: Appearance: grossly normal Mental Status: mental status grossly normal Objective Data Vital Signs Vital Signs: Vital Signs - 24 hr 05/19/24 19:32 05/19/24 20:00 05/20/24 00:00 Temperature 98.1 F 97.1 F L Pulse Rate 87 79 Respiratory Rate 16 16 Blood Pressure 142/82 H 142/85 H Pulse Oximetry 97 92 Oxygen Delivery Room Air 05/20/24 06:00 05/20/24 08:00 05/20/24 14:00 Temperature 97.0 F L 97.6 F Pulse Rate 81 79 Respiratory Rate 16 18 Blood Pressure 157/91 H 145/97 H Pulse Oximetry 99 100 Oxygen Delivery Room Air Intake/Output Intake/Output: Intake & Output 05/17/24 05/18/24 05/19/24 05/20/24 23:59 23:59 23:59 23:59 Intake Total 1716.5 690 340 340 Output Total 1900 1100 500 100 Balance -183.5 -410 -160 240 Meds/Results Medications: Active Medications Generic Name Dose Route Start Last Admin Trade Name Freq PRN Reason Stop Dose Admin Acetaminophen 650 mg 05/18/24 16:21 05/20/24 09:03 Acetaminophen 325 Mg Tablet PO 650 mg Q4H PRN Administration Pain or Fever Hydrocodone Bitart/Acetaminophen 1 tab 05/19/24 10:25 05/20/24 15:29 Hydrocodone/Acetaminophen (*Crx) 5-325 Mg Tablet PO 1 tab Q6H PRN Administration Pain Rated 4-6 Dextrose 12.5 gm 05/16/24 18:49 05/16/24 23:49 Dextrose 50% 25 Gm/50 Ml Syringe IV PUSH 12.5 gm PRN PRN Administration Hypoglycemia Protocol Glucagon 1 mg 05/16/24 18:49 Glucagon For Inj 1 Mg Vial IM PRN PRN Hypoglycemia Protocol Glucose 15 gm 05/16/24 18:49 Glucose Oral Gel 15 Gm Of Glucse In 37.5 Gm Tube PO PRN PRN Hypoglycemia Protocol Heparin Sodium (Porcine) 5,000 units 05/17/24 09:00 05/20/24 09:05 Heparin Sodium 5,000 Units/Ml Vial SUB-Q 5,000 units Q12HR BIGG Administration Dextrose 1,000 mls @ 100 mls/hr 05/16/24 18:49 Dextrose 5% 1,000 Ml IVPB PRN PRN Hypoglycemia Protocol Insulin Aspart 3 - 6 units 05/18/24 17:00 05/20/24 12:25 Insulin Aspart (*Bkc) 100 Units/Ml SUB-Q Not Given TIDWM BIGG Protocol Insulin Aspart 1 - 3 units 05/18/24 21:00 05/19/24 21:17 Insulin Aspart (*Bkc) 100 Units/Ml SUB-Q Not Given HS BIGG Protocol Levofloxacin 750 mg 05/19/24 18:00 05/19/24 17:15 Levofloxacin 750 Mg Tablet PO 05/23/24 18:01 750 mg Q48H BIGG Administration Polyethylene Glycol 17 gm 05/19/24 10:25 Polyethylene Glycol 3350 17 Gm Powd.Pack PO QAM PRN Constipation Radiology Results: ITS Impressions Head CT 05/16/24 13:47 IMPRESSION: 1. 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 Chest/Abdomen/Pelvis CT 05/16/24 15:53 IMPRESSION: 1. 5 mm stone in distal left ureter with moderate left hydronephrosis and hydroureter. 2. 3 mm bladder stone. 3. 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 Chest X-Ray 05/16/24 17:25 IMPRESSION: Cardiomegaly with cardiac decompensation and pulmonary edema. Pneumonia in the right upper and lower lobe and left lower lobe. Underlying fibrotic changes. Retrograde Pyelogram 05/17/24 07:44 IMPRESSION: 1. Mild left hydronephrosis. Left internal ureteral stent in expected position. Femur X-Ray 05/18/24 19:08 IMPRESSION: No acute osseous finding in the right hip or right femur. Hip X-Ray 05/18/24 19:08 IMPRESSION: No acute osseous finding in the right hip or right femur. Knee X-Ray 05/19/24 13:18 IMPRESSION: 1. Small linear calcific density projecting over the intercondylar eminence suspicious for avulsion fracture fragment either of the cruciate ligaments or less likely a meniscal root. Could consider MRI for more definitive determination as clinically indicated. Knee MRI 05/20/24 11:26 IMPRESSION: 1. No fracture. 2. Mild tricompartmental chondrosis. 3. Tear of medial meniscus. 4. Small knee joint effusion. Labs Labs: Laboratory Results - last 24 hr 05/19/24 05/19/24 05/19/24 16:20 17:18 19:30 WBC RBC Hgb Hct MCV MCH MCHC RDW Plt Count MPV Immature Gran % (Auto) Neut % (Auto) Lymph % (Auto) [place] % (Auto) Eos % (Auto) Baso % (Auto) Lymph # (Auto) [place] # (Auto) Eos # (Auto) Baso # (Auto) Abs Immat Gran (auto) Absolute Neuts (auto) Absolute Nucleated RBC Nucleated RBC % Atypical Lymphocytes Platelet Estimate % Immature Plt Fraction Anisocytosis Target Cells Schistocytes Sodium Potassium Chloride Carbon Dioxide Anion Gap BUN Creatinine Estim Creat Clear Calc Estimated GFR Glucose POC Capillary Glucose 184 H 169 H Calcium Magnesium Iron 68 TIBC 221 L % Saturation 31 Ferritin 849.00 H Total Bilirubin AST ALT Alkaline Phosphatase Total Protein Albumin 05/20/24 05/20/24 05/20/24 06:31 07:42 11:30 WBC 3.8 L RBC 2.72 L Hgb 8.9 L Hct 26.6 L MCV 97.8 MCH 32.7 MCHC 33.5 RDW 17.2 H Plt Count 99 L MPV 11.5 H Immature Gran % (Auto) 1.1 H Neut % (Auto) 58.1 Lymph % (Auto) 25.0 [place] % (Auto) 12.6 H Eos % (Auto) 2.4 Baso % (Auto) 0.8 Lymph # (Auto) 0.95 [place] # (Auto) 0.5 Eos # (Auto) 0.1 Baso # (Auto) 0.0 Abs Immat Gran (auto) 0.04 H Absolute Neuts (auto) 2.2 Absolute Nucleated RBC 0.000 Nucleated RBC % 0.0 Atypical Lymphocytes Present Platelet Estimate Slightly decreased % Immature Plt Fraction 4.6 Anisocytosis 1+ Target Cells 1+ Schistocytes Rare Sodium 138 Potassium 3.8 Chloride 108 H Carbon Dioxide 23 Anion Gap 7 BUN 38 H Creatinine 1.00 Estim Creat Clear Calc 33 Estimated GFR > 60 Glucose 131 H POC Capillary Glucose 141 H 165 H Calcium 8.3 L Magnesium 1.9 Iron TIBC % Saturation Ferritin Total Bilirubin 0.7 AST 91 H ALT 62 H Alkaline Phosphatase 78 Total Protein 5.0 L Albumin 2.3 L
[2024-05-20 17:22] LABS: Glucose Point of Care 138 mg/dl (65-105)
--- NOTE | 2024-05-20 17:23 | P.CONOP_ITS ---
Assessment and Plan Assessment and plan (1) Frequent falls: Code(s): R29.6 - Repeated falls Status: Acute (2) Left leg pain: Code(s): M79.605 - Pain in left leg Status: Acute (3) Abrasion of knee: Code(s): S80.219A - Abrasion, unspecified knee, initial encounter Status: Inactive (4) Tear of medial meniscus of right knee: Code(s): S83.241A - Other tear of medial meniscus, current injury, right knee, initial encounter Status: Acute Plan Moderate right knee pain. Also some left knee pain. Frequent falls. MRI shows a right knee meniscus tear which may be chronic. He has a small effusion. I recommend conservative treatment and mobilize as able. Weightbearing as t olerated. Physical therapy recommended. He may follow up as an outpatient in 4-6 weeks as needed. History of Present Illness HPI Consult date: 05/20/24 Consult reason: joint pain Chief complaint: knee pain Narrative: Pleasant 88-year-old gentleman admitted with multiple medical issues including renal spur stones and sepsis complains of right worse than left knee pain. His symptoms are migratory. He has some thigh pain. Denies any specific injury although he did fall several days ago onto the knees. Review of Systems Review of Systems: All systems reviewed & are unremarkable except as noted in HPI and below PMFSH Past Medical History Medical History Anemia Diabetes History of prostate cancer HTN (hypertension) Vitamin D3 deficiency Social History Social History Smoking status: Unknown if ever smoked Alcohol intake: never Substance use: never Substance use type: does not use Do You Feel Safe in your Home?: Yes Lack of Transportation: No Lack of Food: Never True Current Housing: I Have Housing Concerned About Future Housing: No Difficulty Paying Gas/Electric Bills: No Difficulty Paying for Meds: No Currently Unemployed: No Education: Bachelor's Degree Difficulty w/ Childcare or Family Care: No Living arrangements: with family Spiritual care concerns: No Meds Home Medications and Allergies Home Medications Medication Instructions Recorded Confirmed Type Lactobacillus 1 cap PO DAILY 05/15/22 05/17/24 History acidophilus-Bifidobac.animalis 2.5 billion cell capsule (Daily Probiotic) cholecalciferol (vitamin D3) 50 50 mcg PO DAILY 05/15/22 05/17/24 History mcg (2,000 unit) tablet (Vitamin D3) ferrous sulfate 325 mg (65 mg 325 mg PO DAILY 05/15/22 05/17/24 History iron) tablet psyllium husk 0.4 gram capsule 0.4 g PO DAILY 05/15/22 05/17/24 History (Metamucil) fenofibrate 160 mg tablet 160 mg PO DAILY #90 tabs 12/25/23 05/17/24 Rx insulin degludec 100 unit/mL (3 15 unit (0.15 mL) subcut QHS #15 mL 01/12/24 05/17/24 Rx mL) subcutaneous pen (Tresiba FlexTouch U-100 insulin) losartan 50 mg tablet 50 mg PO DAILY 05/17/24 05/17/24 History omeprazole 20 mg capsule,delayed 20 mg PO DAILY 05/17/24 05/17/24 History release tamsulosin 0.4 mg capsule 0.8 mg PO DAILY 05/17/24 05/17/24 History Allergies Allergy/AdvReac Type Severity Reaction Status Date / Time No Known Allergies Allergy Verified 05/16/24 12:49 Vital Signs Vital Signs - 24 hr 05/19/24 19:32 05/19/24 20:00 05/20/24 00:00 Temperature 36.7 C 36.2 C L Pulse Rate 87 79 Respiratory Rate 16 16 Blood Pressure 142/82 H 142/85 H Pulse Oximetry 97 92 Oxygen Delivery Room Air 05/20/24 06:00 05/20/24 08:00 05/20/24 14:00 Temperature 36.1 C L 36.4 C Pulse Rate 81 79 Respiratory Rate 16 18 Blood Pressure 157/91 H 145/97 H Pulse Oximetry 99 100 Oxygen Delivery Room Air Exam Narrative: Elderly gentleman. Alert oriented. Responsive. His daughter is here to help with the history. Mild bruising on the knees. Trace effusion on the right knee. Minimal tenderness. Near normal range of motion. No instability. Mild medial joint line tenderness. Thigh soft. No compartment syndrome. Wiggles toes. No warmth erythema. Results Labs 05/20/24 06:31 05/20/24 06:31 Labs: Abnormal lab results 05/19/24 05/19/24 05/20/24 Range/Units 17:18 19:30 06:31 WBC 3.8 L (4.5-10.0) K/mm3 RBC 2.72 L (4.6-6.20) M/mm3 Hgb 8.9 L (14.0-18.0) g/dL Hct 26.6 L (42.0-52.0) % RDW 17.2 H (11.5-14.5) % Plt Count 99 L (150-375) k/mm3 MPV 11.5 H (7.4-10.4) fl Immature Gran % (Auto) 1.1 H (0-0.5) % [place] % (Auto) 12.6 H (2.6-8.5) % Abs Immat Gran (auto) 0.04 H (0.00-0.031) K/mm3 Chloride 108 H (98-107) mmol/L BUN 38 H (9-20) mg/dL Glucose 131 H (65-110) mg/dL POC Capillary Glucose 169 H (65-105) mg/dl Calcium 8.3 L (8.4-10.2) mg/dL TIBC 221 L (265-497) ug/dL Ferritin 849.00 H (11.1-264) ng/mL AST 91 H (17-59) U/L ALT 62 H (6-50) U/L Total Protein 5.0 L (6.3-8.2) g/dL Albumin 2.3 L (3.5-5.1) g/dL 05/20/24 05/20/24 05/20/24 Range/Units 07:42 11:30 17:07 WBC (4.5-10.0) K/mm3 RBC (4.6-6.20) M/mm3 Hgb (14.0-18.0) g/dL Hct (42.0-52.0) % RDW (11.5-14.5) % Plt Count (150-375) k/mm3 MPV (7.4-10.4) fl Immature Gran % (Auto) (0-0.5) % [place] % (Auto) (2.6-8.5) % Abs Immat Gran (auto) (0.00-0.031) K/mm3 Chloride (98-107) mmol/L BUN (9-20) mg/dL Glucose (65-110) mg/dL POC Capillary Glucose 141 H 165 H 138 H (65-105) mg/dl Calcium (8.4-10.2) mg/dL TIBC (265-497) ug/dL Ferritin (11.1-264) ng/mL AST (17-59) U/L ALT (6-50) U/L Total Protein (6.3-8.2) g/dL Albumin (3.5-5.1) g/dL H & H 05/16/24 05/17/24 05/18/24 Range/Units 13:02 04:38 03:58 Hgb 9.0 L 7.9 L 8.5 L (14.0-18.0) g/dL Hct 26.3 L 22.3 L 24.3 L (42.0-52.0) % 05/19/24 05/20/24 Range/Units 07:13 06:31 Hgb 8.7 L 8.9 L (14.0-18.0) g/dL Hct 25.3 L 26.6 L (42.0-52.0) % Coagulation 05/16/24 Range/Units 13:01 INR 1.3 All other labs normal.
--- NOTE | 2024-05-20 19:26 | PC.NURSE ---
DOCUMENTATION FOR 05-19 DONE BY JULITO QUIROZ AND CHECKED OVER BY DANILO MIRANDA
[2024-05-20 19:33] VITALS: BP 143/80; PULSE 66; RESP 16; TEMP 36.2; O2SAT 100
[2024-05-20 21:00] LABS: Glucose Point of Care 200 mg/dl (65-105)
[2024-05-21] MEDS: HYDROcodone/acetaminophen (*CRX) 5-325 MG TABLET 1 TAB PO ×2 (03:15→09:50)
[2024-05-21 04:13] VITALS: BP 141/76; PULSE 77; RESP 20; TEMP 36.1; O2SAT 100
[2024-05-21 06:13] LABS: Basophils Absolute Auto 0.1 K/mm3 (0.0-0.1); Basophils Percent Auto 1.1 % (0.2-1.2); Eosinophils Absolute Auto 0.2 K/mm3 (0-0.3); Eosinophils Percent Auto 4.2 % (0-4.4); Hematocrit 27.7 % (42.0-52.0); Hemoglobin 9.6 g/dL (14.0-18.0); Immature Granulocyte Absolute 0.08 K/mm3 (0.00-0.031); Immature Granulocyte Percent A 1.7 % (0-0.5); Lymphocytes Absolute Auto 1.53 K/mm3 (0.9-3.2); Lymphocytes Percent Auto 32.3 % (18.3-44.2); Mean Corpuscular HGB Conc 34.7 g/dl (32-36); Mean Corpuscular Volume 98.2 fl (80-100); Mean Platelet Volume 10.8 fl (7.4-10.4); Monocytes Absolute Auto 0.5 K/mm3 (0.1-0.6); Monocytes Percent Auto 10.8 % (2.6-8.5); Neutrophils Absolute Auto 2.4 K/mm3 (1.3-6.7); Neutrophils Percent Auto 49.9 % (45.5-73.1); Platelet Count Result 123 k/mm3 (150-375); Red Blood Count 2.82 M/mm3 (4.6-6.20); White Blood Count 4.7 K/mm3 (4.5-10.0)
[2024-05-21 06:41] LABS: Alanine Aminotransferase 60 U/L (6-50); Albumin Level 2.4 g/dL (3.5-5.1); Alkaline Phosphatase 78 U/L (38-126); Anion Gap 6 mmol/L (4-12); Aspartate Amino Transferase 79 U/L (17-59); Bilirubin,Total 0.6 mg/dL (0.2-1.3); Blood Urea Nitrogen 40 mg/dL (9-20); Calcium 8.6 mg/dL (8.4-10.2); Carbon Dioxide 24 mmol/L (22-30); Chloride 108 mmol/L (98-107); Estimated CRCL calculation 33 ml/min; Estimated Glomerular Filt Rate > 60; Glucose 128 mg/dL (65-110); Magnesium 1.9 mg/dL (1.6-2.3); Potassium 3.8 mmol/L (3.4-5.0); Sodium 138 mmol/L (137-145)
[2024-05-21] MEDS: ACETAMINOPHEN 325 MG TABLET 650 MG PO (07:50)
[2024-05-21 08:11] LABS: Glucose Point of Care 124 mg/dl (65-105)
[2024-05-21] MEDS: HEPARIN SODIUM 5,000 UNITS/ML VIAL 5000 UNITS SUB-Q (09:50)
--- NOTE | 2024-05-21 10:30 | P.DS_ITS ---
DS: Admitting Diagnosis Discharge Date 05/21/24 Admitting Diagnosis Weakness and hypoglycemia DS: Discharge Diagnosis Discharge Diagnosis (1) UTI (urinary tract infection): Code(s): N39.0 - Urinary tract infection, site not specified Status: Acute (2) Septic shock: Code(s): A41.9 - Sepsis, unspecified organism; R65.21 - Severe sepsis with septic shock Status: Acute DS: Summary Hospital Course Hospital Course: 88-year-old male With history of diabetespresents the hospital after found being on the floor for generalized weakness. For EMS he was hypoglycemic in the 40s and given oral glucose, in the ED was still hypoglycemic and given D50. patient is a poor historian, I request not answer any questions and go back to sleep. Patient is in no acute distress at Time of assessment. In the ED the patient has leukocytosis at 21.2, hemoglobin of 9.0, potassium of 3.3, glucose of 42, lactic acid of 4.7, total bili of 1.4, AST of 106, CK of 800 ADA, a troponin of 0.064, and UA was positive for leukocyte esterase at 3+. Blood cultures pending. Patient was hypotensive with tachycardia in the ED was given fluid boluses. Due to hypotension is CVC was placed. Patient was found to be septic with hydronephrosis and a 3 mm bladder stone, Urology was consulted and will take the patient emergently to OR for stent placement. Cystoscopy, left ureteral stent placement 4.8 Citizen Of [place] contour, Munoz catheter placement on 05/16/[address] Bell. Patient was managed with antiobitics, however blood and urine culture resulted withi pansensitive E coli. Repeat blood culture on 05/16 still negative. he is discharged on 10 more days of Levaquin to complete total of 14 days. Complained of right knee pain and MRI showed meniscial tear, ortho evaluated and recommended conservative care. PT/OT recommended SNF, patient accepted to SNF and discharged today F/u wtih PCP in 3-5 days, F/u with ortho as instructed, f/u with Urology as instructed. Topical management below: Assessment and Plan (1) Septic shock: Code(s): A41.9 - Sepsis, unspecified organism; R65.21 - Severe sepsis with septic shock Status: Acute Assessment and Plan: Septic shock likely related UTI, kidney stone hydronephrosis -patient presented with generalized weakness, fall off levophed urine and blood culture postiive for pansensitive E coli CT AP showed: 1. 5 mm stone in distal left ureter with moderate left hydronephrosis and hydroureter. 2. 3 mm bladder stone. S/p left ureteral stent Continue Levaquin x 14 days total (2) UTI (urinary tract infection): Code(s): N39.0 - Urinary tract infection, site not specified Status: Acute Assessment and Plan: UTI likely related to kidney stones -urine cultures as above, continue antibiotics S/p left ureteral stent urology appreciate input (3) Ureteral stone: Code(s): N20.1 - Calculus of ureter Status: Acute Assessment and Plan: CT scan of the abdomen pelvis showed left ureteral stone with left hydronephrosis, status post cystoscopy and left ureteral stent placement -urology following the patient -removed Munoz -continue antibiotics as above (4) Hydronephrosis: Code(s): N13.30 - Unspecified hydronephrosis Status: Acute Assessment and Plan: As above (5) Hypoglycemia: Code(s): E16.2 - Hypoglycemia, unspecified Status: Acute Assessment and Plan: resolved S/p Dextrose infusion now on adequate oral intake -and Accu-Cheks and sliding scale insulin resolved, monitor (6) Fall: Code(s): W19.XXXA - Unspecified fall, initial encounter Status: Acute Assessment and Plan: Patient had a fall could be related to hypotension, infection, patient does take losartan at home -continue to monitor, will require PT/OT when he is off pressors -PT/OT following and recommended rehab CT brain on admission:. 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 Plan Right knee pain MRI knee showed medial meniscus tear MRI reviewed ortho consulted continue PRN pain control and PT/OT Time Spent with Patient Time attestation: Total time spent providing and/or coordinating discharge services: DS: Data Data Completed and Pending Completed studies during hospitalization: Pending at discharge 05/16/24 18:02 Surgical [PTH] Routine Labs on day of discharge: Labs from last 24 hours 05/21/24 05/21/24 05/20/24 07:57 06:08 19:31 WBC 4.7 RBC 2.82 L Hgb 9.6 L Hct 27.7 L MCV 98.2 MCH 34.0 MCHC 34.7 RDW 17.0 H Plt Count 123 L MPV 10.8 H Immature Gran % (Auto) 1.7 H Neut % (Auto) 49.9 Lymph % (Auto) 32.3 [place] % (Auto) 10.8 H Eos % (Auto) 4.2 Baso % (Auto) 1.1 Lymph # (Auto) 1.53 [place] # (Auto) 0.5 Eos # (Auto) 0.2 Baso # (Auto) 0.1 Abs Immat Gran (auto) 0.08 H Absolute Neuts (auto) 2.4 Absolute Nucleated RBC 0.000 Nucleated RBC % 0.0 Sodium 138 Potassium 3.8 Chloride 108 H Carbon Dioxide 24 Anion Gap 6 BUN 40 H Creatinine 1.00 Estim Creat Clear Calc 33 Estimated GFR > 60 Glucose 128 H POC Capillary Glucose 124 H 200 H Calcium 8.6 Magnesium 1.9 Total Bilirubin 0.6 AST 79 H ALT 60 H Alkaline Phosphatase 78 Total Protein 6.0 L Albumin 2.4 L 05/20/24 05/20/24 17:07 11:30 WBC RBC Hgb Hct MCV MCH MCHC RDW Plt Count MPV Immature Gran % (Auto) Neut % (Auto) Lymph % (Auto) [place] % (Auto) Eos % (Auto) Baso % (Auto) Lymph # (Auto) Oliver # (Auto) Eos # (Auto) Baso # (Auto) Abs Immat Gran (auto) Absolute Neuts (auto) Absolute Nucleated RBC Nucleated RBC % Sodium Potassium Chloride Carbon Dioxide Anion Gap BUN Creatinine Estim Creat Clear Calc Estimated GFR Glucose POC Capillary Glucose 138 H 165 H Calcium Magnesium Total Bilirubin AST ALT Alkaline Phosphatase Total Protein Albumin Preliminary micro results at discharge 05/16/24 14:47 Blood Culture - Preliminary Blood Escherichia Coli 05/16/24 19:22 Blood Culture - Preliminary Blood 05/16/24 19:19 Blood Culture - Preliminary Blood Discharge Plan Discharge Attending physician on discharge: Ramirez Sharma Consulting providers: Pedro Argueta; Beltran Laurent; Anatoly Archer Discharging Clinician: Ramirez Sharma Anticipated Discharge Date/Time: 05/21/24 10:21 Patient Disposition: SNF Activity: as tolerated Diet: as tolerated Patient Instructions: Heparin (By injection) Stand Alone Forms: General Discharge Information Follow-up/Referrals: Pedro Argueta MD [Physician] - (F/u with urology as instructed ) Michael Lopez MD [Primary Care Provider] - Luis Alberto Bell MD [Physician] - (F/u with urology as instructed ) Anatoly Archer MD [Physician] - (F/u with Ortho as instructed ) Discharge Medications: New levofloxacin 750 mg tablet 750 mg PO DAILY Qty: 10 0RF Continued ferrous sulfate 325 mg (65 mg iron) Tablet 325 mg PO DAILY cholecalciferol (vitamin D3) [Vitamin D3] 50 mcg (2,000 unit) Tablet 50 mcg PO DAILY psyllium husk [Metamucil] 0.4 gram Capsule 0.4 g PO DAILY Daily Probiotic 2.5 billion cell Capsule 1 cap PO DAILY losartan 50 mg tablet 50 mg PO DAILY tamsulosin 0.4 mg capsule 0.8 mg PO DAILY omeprazole 20 mg capsule,delayed release(DR/EC) 20 mg PO DAILY fenofibrate 160 mg tablet 160 mg PO DAILY Qty: 90 1RF insulin degludec [Tresiba FlexTouch U-100] 100 unit/mL (3 mL) insulin pen 15 unit subcut QHS Qty: 15 1RF Date of admission: 05/16/24 17:47 Primary Care Provider: Michael Lopez Admitting Provider: Luis Alberto Bell Attending physician on admission: Luis Alberto Bell Condition: Critical
[2024-05-21 12:12] LABS: Glucose Point of Care 238 mg/dl (65-105)
[2024-05-21 14:00] VITALS: BP 129/70; PULSE 79; RESP 14; TEMP 36.2; O2SAT 100
== END 2024-05-21 14:20 | DRG 853 ==
LOC: ANHED 16:33 → ANHSURGERY 17:26 → ANHICU 18:49 → ANH2MED 05-20 17:27 → ANHICU 05-24 11:23
PROVIDERS: Emergency Medicine; Internal Medicine; Nurse Practitioner Gerontology; Urology; Admitting Provider Hospitalist; Emergency Provider General Practice; PCP Family Medicine; Visit Provider Internal Medicine
PROC: 0T778DZ Dilation of Left Ureter with Intraluminal Device, Via Natural or Artificial Opening Endoscopic (ICD-10-PCS; CPT 52352; principal; 2024-05-16 17:30)
DX: A41.51 Sepsis due to Escherichia coli [E. coli] (principal); R65.21 Severe sepsis with septic shock; N13.6 Pyonephrosis; N21.0 Calculus in bladder; D64.9 Anemia, unspecified; E11.9 Type 2 diabetes mellitus without complications; I10 Essential (primary) hypertension; E55.9 Vitamin D deficiency, unspecified; E16.2 Hypoglycemia, unspecified; S83.241A Other tear of medial meniscus, current injury, right knee, initial encounter; W19.XXXA Unspecified fall, initial encounter; R29.6 Repeated falls; Z79.4 Long term (current) use of insulin; Z85.46 Personal history of malignant neoplasm of prostate
CPT/HCPCS: 36415; 36556; 70450; 71045; 71260; 73502; 73552; 73560; 73721; 74177; 74420; 80048; 80053; 81001; 82365; 82550; 82728; 82948; 83540; 83550; 83605; 83735; 84100; 84484; 85025; 85055; 85610; 85730; 87040; 87086; 87186; 87641; 88300; 93005; 96361; 96365; 96375; 97110; 97161; 97166; 97530; 99291; A9270; C1751; C1758; C1769; C2617; J0696; J1644; J1815; J2003; J2185; J2405; J2704; J3010; J3475; J3480; J7030; J7070; J7120; Q9966; Q9967

== ENCOUNTER 2024-05-26 08:55 | Inpatient (IN) | payer MEDICARE, MEDICAID, SELFPAY ==
[2024-05-26] VITALS (8 sets, daily range): BP systolic 134–144; BP diastolic 64–106; PULSE 62–103; RESP 17–24; TEMP 36.4–37.7; O2SAT 93–100; BMI 19.8
--- NOTE | ~2024-05-26 | US_ITS ---
BILATERAL LOWER EXTREMITY VENOUS ULTRASOUND Ordering provider: David Nguyen MD History: . pain, edema . Comparison: None. FINDINGS: RIGHT LOWER EXTREMITY VEINS: --COMMON FEMORAL: Patent and free of thrombus. Normal compressibility, phasic flow and augmentation. --PROXIMAL SUPERFICIAL FEMORAL: Patent and free of thrombus. Normal compressibility, phasic flow and augmentation. --DISTAL SUPERFICIAL FEMORAL: Patent and free of thrombus. Normal compressibility, phasic flow and au gmentation. --POPLITEAL: Patent and free of thrombus. Normal compressibility, phasic flow and augmentation. --POSTERIOR TIBIAL: Patent and free of thrombus. Normal compressibility, phasic flow and augmentation . LEFT LOWER EXTREMITY VEINS: --COMMON FEMORAL: Patent and free of thrombus. Normal compressibility, phasic flow and augmentation. --PROXIMAL SUPERFICIAL FEMORAL: Patent and free of thrombus. Normal compressibility, phasic flow and augmentation. --DISTAL SUPERFICIAL FEMORAL: Patent and free of thrombus. Normal compressibility, phasic flow and au gmentation. --POPLITEAL: Patent and free of thrombus. Normal compressibility, phasic flow and augmentation. --POSTERIOR TIBIAL: Patent and free of thrombus. Normal compressibility, phasic flow and augmentation . IMPRESSION: Negative bilateral lower extremity venous US. No deep vein thrombosis. Reviewed, dictated and finalized at location A. S CURVATURE GAUGER
--- NOTE | ~2024-05-26 | CT_ITS ---
CT head without contrast Indication: Altered mental status COMPARISON: 05/16/2024 Technique: Serial scans were obtained through the brain without the administration of contrast. Dose reduction technique was used on this scan by utilizing automated exposure control and iterative recon struction technique. The dose-length product (DLP) was 681.00 mGy-cm. Findings: There is no evidence of intracranial hemorrhage, mass lesion, or acute infarct. The ventri cles and subarachnoid spaces are dilated, consistent with mild to moderate atrophy. Low attenuation regions are seen within the periventricular white matter bilaterally, likely representing changes fro m chronic microvascular ischemic disease. There is no evidence of edema, mass effect or midline shif t. Bilateral maxillary sinus disease present. Probable prior sinus surgery. Impression: No intracranial hemorrhage, mass, or acute infarct. Atrophy and chronic white matter changes, as above. Reviewed, dictated and finalized at location M. FACTURING SUPERVISOR Impression: No intracranial hemorrhage, mass, or acute infarct. Atrophy and chronic white matter changes, as above.
--- NOTE | ~2024-05-26 | XR_ITS ---
Portable chest x-ray Comparison: 05/26/2024 Clinical History: Edema Findings: Chronic interstitial pulmonary changes are similar to prior exam. No acute pulmonary patho logy evident. Cardiomediastinal silhouette is stable. Bones and soft tissues are unremarkable. Impression: Chronic interstitial pulmonary disease is stable from prior exam. Reviewed, dictated and finalized at [facility]. BOAT Impression: Chronic interstitial pulmonary disease is stable from prior exam.
--- NOTE | ~2024-05-26 | XR_ITS ---
XR chest 1V portable 05/26/2024 09:48 Indication: Cough. Hypoglycemia. Procedure: AP portable chest Comparison: Comparison to multiple prior studies sequentially, with oldest reviewed study dated 04/20. Findings: Heart size normal. Mild interstitial edema. No pleural effusion or pneumothorax. No acute o sseous abnormality. Impression: 1: Mild interstitial edema. Reviewed, dictated and finalized at location [] D TRUCK OPERATOR Impression: 1: Mild interstitial edema.
[2024-05-26 09:11] LABS: Glucose Point of Care 195 mg/dl (65-105)
--- NOTE | 2024-05-26 09:18 | ED_ITS ---
HPI - Recheck/Abnormal Lab/Rx General Chief Complaint: Recheck/Abnormal Lab/Rx Stated Complaint: low BS Time Seen by Provider: 05/26/24 08:58 History of Present Illness HPI narrative: Patient found to have low blood sugar, was in the 20s at the alf, after getting multiple doses of insulin without blood sugar check per report, was started on D10 and now more responsive. Patient still not able to speak with Related Data Home Medications Medication Instructions Recorded Confirmed Lactobacillus 1 cap PO DAILY 05/15/22 05/17/24 acidophilus-Bifidobac.animalis 2.5 billion cell capsule (Daily Probiotic) cholecalciferol (vitamin D3) 50 50 mcg PO DAILY 05/15/22 05/17/24 mcg (2,000 unit) tablet (Vitamin D3) ferrous sulfate 325 mg (65 mg 325 mg PO DAILY 05/15/22 05/17/24 iron) tablet psyllium husk 0.4 gram capsule 0.4 g PO DAILY 05/15/22 05/17/24 (Metamucil) losartan 50 mg tablet 50 mg PO DAILY 05/17/24 05/17/24 omeprazole 20 mg capsule,delayed 20 mg PO DAILY 05/17/24 05/17/24 release tamsulosin 0.4 mg capsule 0.8 mg PO DAILY 05/17/24 05/17/24 Allergies Allergy/AdvReac Type Severity Reaction Status Date / Time No Known Allergies Allergy Verified 05/16/24 12:49 Review of Systems Review of Systems: ROS unobtainable: Yes unobtainable due to mental status PMFSH Past Medical History Medical History Anemia Diabetes History of prostate cancer HTN (hypertension) Vitamin D3 deficiency Social History Social History Smoking status: Never smoker Alcohol intake: never Substance use: never Substance use type: does not use Do You Feel Safe in your Home?: Yes Lack of Transportation: No Lack of Food: Never True Current Housing: I Have Housing Concerned About Future Housing: No Difficulty Paying Gas/Electric Bills: No Difficulty Paying for Meds: No Currently Unemployed: No Education: Bachelor's Degree Difficulty w/ Childcare or Family Care: No Living arrangements: with family Spiritual care concerns: No Exam Narrative: EXAMINATION OF ORGAN SYSTEMS/BODY AREAS: Constitutional: Vital signs per nursing GENERAL:[No acute distress, non-toxic appearing.] HEAD: Normal with no signs of head trauma. EYES: EOMI, conjunctiva normal ENT: Hearing grossly intact LUNGS: Nonlabored breathing. HEART: [Regular rate and rhythm] ABD: [Soft], [nontender to palpation] EXT: Normal range of motion SKIN: [No rashes or lesions.] NEURO: [Alert and babbling.] PSYCH: Normal affect Course Vital Signs Vital signs: Vital Signs Temperature 97.6 F 05/26/24 08:55 Pulse Rate 103 H 05/26/24 08:55 Respiratory Rate 20 05/26/24 08:55 Blood Pressure 140/106 H 05/26/24 08:55 Pulse Oximetry 100 05/26/24 08:55 Oxygen Delivery Room Air 05/26/24 08:55 Temperature 98.2 F 05/26/24 14:00 Pulse Rate 62 05/26/24 14:00 Respiratory Rate 18 05/26/24 14:00 Blood Pressure 144/80 H 05/26/24 14:00 Pulse Oximetry 98 05/26/24 14:00 Oxygen Delivery Room Air 05/26/24 08:55 MDM - Recheck/Abnormal Lab/Rx MDM Narrative Medical decision making narrative: Patient found hypoglycemic after having gotten does of insulin without sugar checks. Initially was quite confused and altered here, I am hoping just because of the prolonged hypoglycemia event, however he is still pretty confused currently so I did obtain a further workup including infectious workup and CT head. I did obtain history from his [id number] at bedside as well as from alf report and from the alf papers and from the admission/dis charge records. Q 1 blood sugar checks are ordered, his blood sugar did start dropping again, I did feel he needed to be admitted for further evaluation and for frequent glucose checks and replacement. Discussed with hospitalist for admission. Lab Data 05/26/24 09:30 05/26/24 09:30 Labs: Lab Results 05/26/24 05/26/24 05/26/24 Range/Units 09:05 09:30 09:59 WBC 11.6 H (4.5-10.0) K/mm3 RBC 2.51 L (4.6-6.20) M/mm3 Hgb 8.5 L (14.0-18.0) g/dL Hct 25.6 L (42.0-52.0) % MCV 102.0 H (80-100) fl MCH 33.9 (26-34) pg MCHC 33.2 (32-36) g/dl RDW 17.5 H (11.5-14.5) % Plt Count 219 D (150-375) k/mm3 MPV 10.5 H (7.4-10.4) fl Immature Gran % (Auto) 0.9 H (0-0.5) % Neut % (Auto) 91.1 H (45.5-73.1) % Lymph % (Auto) 4.7 L (18.3-44.2) % Major % (Auto) 3.0 (2.6-8.5) % Eos % (Auto) 0.0 (0-4.4) % Baso % (Auto) 0.3 (0.2-1.2) % Lymph # (Auto) 0.54 L (0.9-3.2) K/mm3 Major # (Auto) 0.4 (0.1-0.6) K/mm3 Eos # (Auto) 0.0 (0-0.3) K/mm3 Baso # (Auto) 0.0 (0.0-0.1) K/mm3 Abs Immat Gran (auto) 0.11 H (0.00-0.031) K/mm3 Absolute Neuts (auto) 10.6 H (1.3-6.7) K/mm3 Absolute Nucleated RBC 0.000 (0.0-0.012) K/mm3 Nucleated RBC % 0.0 (0.0-0.2) % Platelet Estimate Adequate (Adequate) Large Platelets Present Hypochromasia 1+ Anisocytosis 1+ Tear Drop Cells 1+ Schistocytes None seen Sodium 140 (137-145) mmol/L Potassium 3.3 L (3.4-5.0) mmol/L Chloride 109 H (98-107) mmol/L Carbon Dioxide 26 (22-30) mmol/L Anion Gap 5 (4-12) mmol/L BUN 33 H (9-20) mg/dL Creatinine 1.00 (0.7-1.3) mg/dL Estim Creat Clear Calc Not Reportable Estimated GFR > 60 (59 - ) Glucose 145 H (65-110) mg/dL POC Capillary Glucose 195 H 152 H (65-105) mg/dl Calcium 8.5 (8.4-10.2) mg/dL Total Bilirubin 1.1 (0.2-1.3) mg/dL AST 69 H (17-59) U/L ALT 41 (6-50) U/L Alkaline Phosphatase 65 (38-126) U/L Total Protein 6.0 L (6.3-8.2) g/dL Albumin 2.5 L (3.5-5.1) g/dL Urine Color (Yellow) Urine Appearance (Clear) Urine pH (5.0-9.0) Ur Specific [place] (1.001-1.035) Urine Protein (Negative) mg/dL Urine Glucose (UA) (Negative) mg/dL Urine Ketones (Negative) mg/dL Ur Blood (Man) (Negative) Urine Nitrate (Negative) Urine Bilirubin (Negative) Urine Urobilinogen (<2.0) mg/dL Leukocyte Esterase Rfl (Negative) MACO/UL Urine RBC (0-2) /hpf Urine WBC (0-3) /hpf Ur Squamous Epith Cells (Few) /hpf Urine Bacteria /hpf Urine Casts 05/26/24 05/26/24 05/26/24 Range/Units 10:07 11:18 12:23 WBC (4.5-10.0) K/mm3 RBC (4.6-6.20) M/mm3 Hgb (14.0-18.0) g/dL Hct (42.0-52.0) % MCV (80-100) fl MCH (26-34) pg MCHC (32-36) g/dl RDW (11.5-14.5) % Plt Count (150-375) k/mm3 MPV (7.4-10.4) fl Immature Gran % (Auto) (0-0.5) % Neut % (Auto) (45.5-73.1) % Lymph % (Auto) (18.3-44.2) % Major % (Auto) (2.6-8.5) % Eos % (Auto) (0-4.4) % Baso % (Auto) (0.2-1.2) % Lymph # (Auto) (0.9-3.2) K/mm3 Major # (Auto) (0.1-0.6) K/mm3 Eos # (Auto) (0-0.3) K/mm3 Baso # (Auto) (0.0-0.1) K/mm3 Abs Immat Gran (auto) (0.00-0.031) K/mm3 Absolute Neuts (auto) (1.3-6.7) K/mm3 Absolute Nucleated RBC (0.0-0.012) K/mm3 Nucleated RBC % (0.0-0.2) % Platelet Estimate (Adequate) Large Platelets Hypochromasia Anisocytosis Tear Drop Cells Schistocytes Sodium (137-145) mmol/L Potassium (3.4-5.0) mmol/L Chloride (98-107) mmol/L Carbon Dioxide (22-30) mmol/L Anion Gap (4-12) mmol/L BUN (9-20) mg/dL Creatinine (0.7-1.3) mg/dL Estim Creat Clear Calc Estimated GFR (59 - ) Glucose (65-110) mg/dL POC Capillary Glucose 234 H 123 H (65-105) mg/dl Calcium (8.4-10.2) mg/dL Total Bilirubin (0.2-1.3) mg/dL AST (17-59) U/L ALT (6-50) U/L Alkaline Phosphatase (38-126) U/L Total Protein (6.3-8.2) g/dL Albumin (3.5-5.1) g/dL Urine Color Yellow (Yellow) Urine Appearance Cloudy H (Clear) Urine pH 6.5 (5.0-9.0) Ur Specific [place] 1.018 (1.001-1.035) Urine Protein 2+ H (Negative) mg/dL Urine Glucose (UA) Trace H (Negative) mg/dL Urine Ketones Negative (Negative) mg/dL Ur Blood (Man) 3+ H (Negative) Urine Nitrate Negative (Negative) Urine Bilirubin Negative (Negative) Urine Urobilinogen 1.0 (<2.0) mg/dL Leukocyte Esterase Rfl 1+ H (Negative) MACO/UL Urine RBC >100 H (0-2) /hpf Urine WBC 21-50 H (0-3) /hpf Ur Squamous Epith Cells None seen (Few) /hpf Urine Bacteria None seen /hpf Urine Casts 0-2 Critical Care Time Critical Care Time Critical Care Time: Yes Total Critical Care Time: 31 Discharge Plan Discharge Clinical Impression: Hypoglycemia, Altered mental state Patient Disposition: Still a Patient Condition: Serious
[2024-05-26 09:37] LABS: Basophils Percent Auto 0.3 % (0.2-1.2); Hematocrit 25.6 % (42.0-52.0); Hemoglobin 8.5 g/dL (14.0-18.0); Immature Granulocyte Absolute 0.11 K/mm3 (0.00-0.031); Immature Granulocyte Percent A 0.9 % (0-0.5); Lymphocytes Absolute Auto 0.54 K/mm3 (0.9-3.2); Lymphocytes Percent Auto 4.7 % (18.3-44.2); Mean Corpuscular HGB Conc 33.2 g/dl (32-36); Mean Corpuscular Hemoglobin 33.9 pg (26-34); Mean Platelet Volume 10.5 fl (7.4-10.4); Monocytes Absolute Auto 0.4 K/mm3 (0.1-0.6); Neutrophils Absolute Auto 10.6 K/mm3 (1.3-6.7); Neutrophils Percent Auto 91.1 % (45.5-73.1); Platelet Count Result 219 k/mm3 (150-375); Red Blood Count 2.51 M/mm3 (4.6-6.20); Red Cell Distribution Width 17.5 % (11.5-14.5); White Blood Count 11.6 K/mm3 (4.5-10.0)
[2024-05-26 09:49] LABS: Alanine Aminotransferase 41 U/L (6-50); Albumin Level 2.5 g/dL (3.5-5.1); Alkaline Phosphatase 65 U/L (38-126); Anion Gap 5 mmol/L (4-12); Aspartate Amino Transferase 69 U/L (17-59); Bilirubin,Total 1.1 mg/dL (0.2-1.3); Blood Urea Nitrogen 33 mg/dL (9-20); Calcium 8.5 mg/dL (8.4-10.2); Carbon Dioxide 26 mmol/L (22-30); Chloride 109 mmol/L (98-107); Estimated Glomerular Filt Rate > 60; Glucose 145 mg/dL (65-110); Potassium 3.3 mmol/L (3.4-5.0); Sodium 140 mmol/L (137-145)
[2024-05-26 09:57] LABS: Anisocytosis 1+; Hypochromasia 1+; Large Platelets Present; Platelet Estimate Adequate (Adequate); Tear Drop Cells 1+
[2024-05-26 09:58] LABS: Schistocytes None Seen
[2024-05-26 10:20] LABS: Add Urine Microscopic? YES; Appearance Urine Cloudy (Clear); Bacteria Urine None Seen /hpf; Bilirubin Urine Negative (Negative); Blood Urine 3+ (Negative); Color Urine Yellow (Yellow); Glucose Urine UA Trace mg/dL (Negative); Ketones Urine Negative (Negative); Leukocyte Esterase Ur 1+ LEU/UL (Negative); Nitrate Urine Negative (Negative); Non Pathogenic Casts 0-2; Protein Urine 2+ mg/dL (Negative); RBC Urine >100 /hpf (0-2); Specific Grav Ur 1.018 (1.001-1.035); Squamous Epithelial Cell Urine None Seen /hpf (Few); WBC Urine 21-50 /hpf (0-3); pH Urine 6.5 (5.0-9.0)
[2024-05-26] MEDS: POTASSIUM CHLORIDE 20 MEQ ER TABLET 40 MEQ PO (11:23)
[2024-05-26 11:27] LABS: Glucose Point of Care 234 mg/dl (65-105)
[2024-05-26 11:27] LABS: Glucose Point of Care 152 mg/dl (65-105)
[2024-05-26 12:26] LABS: Glucose Point of Care 123 mg/dl (65-105)
--- NOTE | 2024-05-26 13:49 | ADMGEN ---
This patient, Gordy Lynn, was admitted to IMU Room 232-01. Patient/family oriented to hospital policies and general routines including ID bracelet, bed and alarms, visiting hours, pain management, procedures, bathroom and other care routines, personal items, smoking policy, room service/diet, and visiting hours. Information on how to activate the Rapid Response Team has been discussed. Patient/Family are encouraged to report perceived risks to care and to ask questions if they do not understand what they are told or what they should do.
[2024-05-26 14:13] LABS: Glucose Point of Care 39 mg/dl (65-105)
--- NOTE | 2024-05-26 14:20 | PM.IMHP ---
H&P: HPI History of Present Illness Date/Time: 05/26/24 20:59 Chief Complaint: Hypoglycemia Narrative: 88 y/o M presents here with hypoglycemia with PMH of anemia, DM, prostate cancer, HTN, and vitamin d deficiency. The patient presents here from [facility] via EMS for further evaluation of hypoglycemia. Per [place] report to EMS, the patient was found lethargic this morning. Glucose was obtained which was 25. Staff then administered IM glucagon. Repeat glucose was 35. Last administration of insulin was last night. The patient was given 15 units of insulin. No pre or post administration glucose check were preformed. The patient at his baseline is A/Ox2, arrived lethargic/confused. Currently A/Ox3. Currently reporting mild suprapubic pain, dysruaia, and lethargy. Of note, the patient was recently admitted from 05/16/24-05/21/24 for lethargy and was again found hypoglycemia in the 40s. He was also found to be septic secondary to a UTI/septic stone. Patient had a left uretal stent and a russo placed. Urine culture grew pansensitive e. coli. Initial blood cultures also grew E coli. Repeat blood cultures on 05/16/2024 were negative. He was discharged on Levaquin x 14 days, still on course. Accepted at a SNF ([facility]) with plans for outpatient follow-up with ortho and urology. Initial VS at presentation: 97.6? F, HR 103, RR 20, 140/106, and 100% on RA. ED workup showed: WBC 11.6, hemoglobin 8.5, potassium 3.3, creatinine 1.0 and GFR >60. UA suggestive of UTI. CXR showed mild interstitial edema. Head CT showed no acute findings and chronic atrophy/chronic white matter changes. Review of Systems Review of Systems: ROS unobtainable: Yes unobtainable due to mental status (Limited due to baseline mental status) [facility] Past Medical History Medical History Anemia Diabetes History of prostate cancer HTN (hypertension) Vitamin D3 deficiency Social History Social History Smoking status: Never smoker Alcohol intake: never Substance use: never Substance use type: does not use Do You Feel Safe in your Home?: Yes Lack of Transportation: No Lack of Food: Never True Current Housing: I Have Housing Concerned About Future Housing: No Difficulty Paying Gas/Electric Bills: No Difficulty Paying for Meds: No Currently Unemployed: No Education: Bachelor's Degree Difficulty w/ Childcare or Family Care: No Living arrangements: with family Spiritual care concerns: No Meds Home Medications and Allergies Home Medications Medication Instructions Recorded Confirmed Type Lactobacillus 1 cap PO DAILY 05/15/22 05/26/24 History acidophilus-Bifidobac.animalis 2.5 billion cell capsule (Daily Probiotic) cholecalciferol (vitamin D3) 50 50 mcg PO DAILY 05/15/22 05/26/24 History mcg (2,000 unit) tablet (Vitamin D3) ferrous sulfate 325 mg (65 mg 325 mg PO DAILY 05/15/22 05/26/24 History iron) tablet psyllium husk 0.4 gram capsule 0.4 g PO DAILY 05/15/22 05/26/24 History (Metamucil) fenofibrate 160 mg tablet 160 mg PO DAILY #90 tabs 12/25/23 05/26/24 Rx insulin degludec 100 unit/mL (3 15 unit (0.15 mL) subcut QHS #15 mL 01/12/24 05/26/24 Rx mL) subcutaneous pen (Tresiba FlexTouch U-100 insulin) losartan 50 mg tablet 50 mg PO DAILY 05/17/24 05/26/24 History omeprazole 20 mg capsule,delayed 20 mg PO DAILY 05/17/24 05/26/24 History release tamsulosin 0.4 mg capsule 0.8 mg PO DAILY 05/17/24 05/26/24 History hydrocodone 5 mg-acetaminophen 325 1 tablet PO Q6H PRN Pain Rated 4-6 05/21/24 05/26/24 Rx mg tablet 5 days #10 tabs hydrocodone 5 mg-acetaminophen 325 1 tablet PO Q8H PRN pain #20 tabs 05/21/24 05/26/24 Rx mg tablet levofloxacin 750 mg tablet 750 mg PO DAILY #10 tabs 05/21/24 05/26/24 Rx Allergies Allergy/AdvReac Type Severity Reaction Status Date / Time No Known Allergies Allergy Verified 05/16/24 12:49 Vital Signs Vital Signs - 24 hr 05/26/24 08:55 05/26/24 13:31 Temperature 97.6 F Pulse Rate 103 H 94 Respiratory Rate 20 17 Blood Pressure 140/106 H 138/82 Pulse Oximetry 100 96 Oxygen Delivery Room Air Exam Const: General: comfortable and no acute distress Other: , male, frail appearing HENMT: Face/Nose/Sinus: Normal nares present Mouth: Yes moist mucous membranes Eyes: General: appearance normal, both eyes and all related structures Sclera: sclerae normal Pupils: Equal, round and reactive pupils present EOM: EOMs intact bilaterally Resp: Effort & Inspection: normal respiratory effort Auscultation: clear to auscultation bilaterally Cardio: Rate: regular rate Rhythm: regular rhythm Other: S1-S2 present without murmur, rub, ectopy GI: Other: Abdomen soft, nondistended, nontender. Normoactive bowel sounds all quadrants. : Other: + suprapubic tenderness Skin: General skin exam: normal color and no rashes or lesions noted Other: ecchymosis in varying stages to BUE in no particular pattern. Neuro: Speech: normal speech Motor exam (neuro): 5/5 motor strength present throughout Sensory Exam: normal sensation Other: A&O x3 Extrem: General: normal to inspection Psych: Mental Status: mental status grossly normal Affect: normal affect Other: Poor insight and judgment H&P: Results Labs Labs: Short CBC 05/26/24 Range/Units 09:30 WBC 11.6 H (4.5-10.0) K/mm3 Hgb 8.5 L (14.0-18.0) g/dL Hct 25.6 L (42.0-52.0) % Plt Count 219 D (150-375) k/mm3 BMP 05/26/24 09:30 Sodium 140 Potassium 3.3 L Chloride 109 H Carbon Dioxide 26 BUN 33 H Creatinine 1.00 Glucose 145 H Calcium 8.5 Liver Function 05/26/24 Range/Units 09:30 Total Bilirubin 1.1 (0.2-1.3) mg/dL AST 69 H (17-59) U/L ALT 41 (6-50) U/L Alkaline Phosphatase 65 (38-126) U/L Albumin 2.5 L (3.5-5.1) g/dL Urine 05/26/24 Range/Units 10:07 Urine Color Yellow (Yellow) Urine Appearance Cloudy H (Clear) Urine pH 6.5 (5.0-9.0) Ur Specific [place] 1.018 (1.001-1.035) Urine Protein 2+ H (Negative) mg/dL Urine Glucose (UA) Trace H (Negative) mg/dL Assessment and Plan Assessment and plan (1) Altered mental state: Qualifiers: Altered mental status type: disorientation Qualified Code(s): R41.0 - Disorientation, unspecified Code(s): R41.82 - Altered mental status, unspecified Status: Acute Assessment and Plan: - Head CT No intracranial hemorrhage, mass, or acute infarct. Atrophy and chronic white matter changes, as above. - CXR: Mild interstitial edema. - baseline A/Ox2, currently A&O x3 - suspect worsening alteration suspected to be secondary to hypoglycemia and ongoing UTI - neurochecks q4-6h - add viral PCR (2) Hypoglycemia: Code(s): E16.2 - Hypoglycemia, unspecified Status: Acute Assessment and Plan: - hypoglycemia protocol and accuchecks q2h - D5LR 100 mL/hr (initially at 75, however patient was continuing to drop and drip was increased) - hold home medications (3) T2DM (type 2 diabetes mellitus): Qualifiers: Diabetes mellitus complication status: with hypoglycemia Diabetes mellitus manager terminal insulin use: with correction use Qualified Code(s): E11.649 - Type 2 diabetes mellitus with hypoglycemia without coma; Z79.4 - long term acute care registered nurse (current) use of insulin Code(s): E11.9 - Type 2 diabetes mellitus without complications Status: Chronic Assessment and Plan: - hypoglycemia protocol - POC blood glucose q2h - hold home medication: Tresiba 15 units HS - correct regimen ordered - low dose TIDWM - A1C ordered - prosthodontist/educator consulted (4) UTI (urinary tract infection): Qualifiers: Hematuria presence: without hematuria Urinary tract infection type: acute cystitis Qualified Code(s): N30.00 - Acute cystitis without hematuria Code(s): N39.0 - Urinary tract infection, site not specified Status: Acute Assessment and Plan: - did not meet SIRS criteria, HR only. Will add procalcitonin. Recently positive blood culture showing E coli secondary to UTI also caused by E coli. Repeat blood cultures negative on 05/16. - UA: Cloudy, 2+ protein, trace glucose, 3+ blood, 1+ leuks, greater than 100 RBC, 21-50 WBC - UC pending - previous micro reviewed, E coli pansensitive on 05/16 - started on Ceftriaxone on 05/26, hold Levaquin (5) Anemia: Qualifiers: Anemia type: unspecified type Qualified Code(s): D64.9 - Anemia, unspecified Code(s): D64.9 - Anemia, unspecified Status: Chronic Assessment and Plan: - Hgb 8.5, - previous range in 2023: 7.9-10.5 - MCV mildly elevated and normal MCHC - recently had anemia w/u in Apr - monitor (6) HTN (hypertension): Qualifiers: Hypertension type: primary hypertension Qualified Code(s): I10 - Essential (primary) hypertension Code(s): I10 - Essential (primary) hypertension Status: Chronic Assessment and Plan: - chronic, currently 144/80 - continue home medications: Losartan 50 mg daily - monitor Plan Diet: Regular GI Prophylaxis: Not currently indicated DVT Prophylaxis: SCDs Lines: Peripheral Code Status: DNR Quality VTE Prophylaxis VTE prophylaxis: mechanical ordered Hospitalist MIPS Advance Care Plan I have confirmed that the patient's Advanced Care Plan is present, code status is documented, or surrogate decision maker is listed in patient medical record.: Yes Medication Reconciliation I have utilized all available resources to obtain, update and review the patients current medications (includes all prescriptions, OTC, herbals, cannabis, and nutritional supplements).: Yes
[2024-05-26 14:30] LABS: Glucose Point of Care 145 mg/dl (65-105)
[2024-05-26] MEDS: DEXTROSE 5%/LACTATED RINGERS 1,000 ML 75 ML IV CONT (14:32)
[2024-05-26] MEDS: DEXTROSE 50% 25 GM/50 ML SYRINGE IV PUSH (14:32)
[2024-05-26 16:32] LABS: Glucose Point of Care 68 mg/dl (65-105)
[2024-05-26 17:22] LABS: Procalcitonin 3.7 ng/mL
[2024-05-26 17:37] LABS: Influenza A QL RT-PCR Negative (Negative); Influenza B QL RT-PCR Negative (Negative); RSV RNA, RT-PCR Negative (Negative); SARS-CoV-2 RNA PCR Negative (Negative)
[2024-05-26 18:20] LABS: Glucose Point of Care 113 mg/dl (65-105)
[2024-05-26 20:56] LABS: Glucose Point of Care 99 mg/dl (65-105)
[2024-05-26 21:21] LABS: Glucose Point of Care 107 mg/dl (65-105)
[2024-05-26] MEDS: ACETAMINOPHEN 325 MG TABLET 650 MG PO (22:37)
[2024-05-27] VITALS (13 sets, daily range): BP systolic 111–134; BP diastolic 56–78; PULSE 74–94; RESP 16–24; TEMP 36.4–36.8; O2SAT 93–100; BMI 20.1
[2024-05-27 00:22] LABS: Glucose Point of Care 115 mg/dl (65-105)
[2024-05-27 01:50] LABS: Glucose Point of Care 127 mg/dl (65-105)
[2024-05-27] MEDS: HYDROcodone/acetaminophen (*CRX) 5-325 MG TABLET 1 TAB PO (02:05)
[2024-05-27] MEDS: DEXTROSE 5%/LACTATED RINGERS 1,000 ML 75 ML IV CONT (03:43)
[2024-05-27 04:45] LABS: Glucose Point of Care 126 mg/dl (65-105)
[2024-05-27 05:11] LABS: Basophils Percent Auto 0.3 % (0.2-1.2); Eosinophils Percent Auto 0.2 % (0-4.4); Hematocrit 23.4 % (42.0-52.0); Immature Granulocyte Percent A 0.8 % (0-0.5); Lymphocytes Absolute Auto 1.66 K/mm3 (0.9-3.2); Lymphocytes Percent Auto 13.2 % (18.3-44.2); Mean Corpuscular HGB Conc 34.2 g/dl (32-36); Mean Corpuscular Hemoglobin 34.9 pg (26-34); Mean Corpuscular Volume 102.2 fl (80-100); Mean Platelet Volume 9.9 fl (7.4-10.4); Monocytes Absolute Auto 0.5 K/mm3 (0.1-0.6); Monocytes Percent Auto 3.9 % (2.6-8.5); Neutrophils Absolute Auto 10.3 K/mm3 (1.3-6.7); Neutrophils Percent Auto 81.6 % (45.5-73.1); Platelet Count Result 185 k/mm3 (150-375); Red Blood Count 2.29 M/mm3 (4.6-6.20); Red Cell Distribution Width 17.7 % (11.5-14.5); White Blood Count 12.6 K/mm3 (4.5-10.0)
[2024-05-27 05:29] LABS: Alanine Aminotransferase 40 U/L (6-50); Albumin Level 2.2 g/dL (3.5-5.1); Alkaline Phosphatase 57 U/L (38-126); Anion Gap 3 mmol/L (4-12); Aspartate Amino Transferase 77 U/L (17-59); Bilirubin,Total 1.4 mg/dL (0.2-1.3); Blood Urea Nitrogen 28 mg/dL (9-20); Calcium 8.3 mg/dL (8.4-10.2); Carbon Dioxide 26 mmol/L (22-30); Chloride 108 mmol/L (98-107); Estimated CRCL calculation 35 ml/min; Estimated Glomerular Filt Rate > 60; Glucose 119 mg/dL (65-110); Potassium 4.1 mmol/L (3.4-5.0); Sodium 137 mmol/L (137-145)
[2024-05-27 06:04] LABS: Hemoglobin A1C 5.2 % (<5.7)
[2024-05-27 07:41] LABS: Glucose Point of Care 119 mg/dl (65-105)
[2024-05-27] MEDS: cefTRIAXone 2 GM/NS 100 ML 2 GM/100 ML BAG IVPB (08:50)
[2024-05-27] MEDS: CHOLECALCIFEROL 1,000 UNITS TABLET 2000 UNITS PO (08:50)
[2024-05-27] MEDS: FENOFIBRATE 160 MG TABLET PO (08:50)
[2024-05-27] MEDS: PSYLLIUM POWDER PACKET 1 PACKET PO (08:50)
[2024-05-27] MEDS: ACIDOPHILUS/BULGARICUS CHEWABLE TABLET 1 TABLET PO (08:50)
[2024-05-27] MEDS: FERROUS SULFATE 325 MG TABLET DR PO (08:50)
[2024-05-27] MEDS: TAMSULOSIN HCL 0.4 MG CAPSULE 0.8 MG PO (08:50)
[2024-05-27] MEDS: PANTOPRAZOLE 40 MG TABLET PO (08:50)
[2024-05-27] MEDS: LOSARTAN POTASSIUM 50 MG TABLET PO (08:50)
[2024-05-27 10:26] LABS: Glucose Point of Care 163 mg/dl (65-105)
[2024-05-27 12:11] LABS: Glucose Point of Care 177 mg/dl (65-105)
--- NOTE | 2024-05-27 15:51 | P.PNIM_ITS ---
Progress Note: A&P Assessment and Plan (1) Altered mental state: Qualifiers: Altered mental status type: disorientation Qualified Code(s): R41.0 - Disorientation, unspecified Code(s): R41.82 - Altered mental status, unspecified Status: Acute Assessment and Plan: Patient brought in for altered mental status. Head CT showing no intracranial hemorrhage, mass, or acute infarct. Atrophy and chronic white matter changes. CXR showing mild interstitial edema. COVID, Influenza and RSV PCR negative. Howard spect AMS secondary to hypoglycemia and ongoing UTI. Continue neurochecks q4-6h Continue to try to orient. Start PT/OT (2) Hypoglycemia: Code(s): E16.2 - Hypoglycemia, unspecified Status: Acute Assessment and Plan: Patient was here last week on 05/16 for AMS, hypoglycemia and complicated UTI and was discharged on 05/21/24. Glucose was corrected then was normal or elevated during his hospital course. He was on sliding scale but not on scheduled insulin. At discharge, he was resumed on his Tresiba 15U QHS. Per [place] report to EMS, the patient was found lethargic. Glucose was obtained which was 25. Staff then administered IM glucagon. Repeat glucose was 35. D5LR 100 mL/hr (initially at 75, however patient was continuing to drop and drip was increased). Glucose has normalized. Holding home medications Wean off dextrose as glucose tolerates. (3) T2DM (type 2 diabetes mellitus): Qualifiers: Diabetes mellitus complication status: with hypoglycemia Diabetes mellitus fci insulin use: with fci use Qualified Code(s): E11.649 - Type 2 diabetes mellitus with hypoglycemia without coma; Z79.4 - custodial (current) use of insulin Code(s): E11.9 - Type 2 diabetes mellitus without complications Status: Chronic Assessment and Plan: A1c 5.2%, The patient's blood glucose was reviewed on 05/27 Glucose remains well controlled. Continue AccuCheks. Hypoglycemia protocol available as needed. Continue close monitoring. Consider adding metformin. (4) UTI (urinary tract infection): Qualifiers: Hematuria presence: without hematuria Urinary tract infection type: acute cystitis Qualified Code(s): N30.00 - Acute cystitis without hematuria Code(s): N39.0 - Urinary tract infection, site not specified Status: Acute Assessment and Plan: Recently hospitalized for AMS and found to have sepsis with a 5mm distal left ureteral stone with hydronephrosis s/p stent placement on 05/16/24. BCx and UCx positive for EColi treated with meropenem. He was discharged on 05/21 on levaquin 750mg daily for 10 more days. Here, UA concern for UTI. UCx collected. WBC 12.6K. PCT 3.7. Started on Ceftriaxone on 05/26, holding Levaquin (5) Anemia: Qualifiers: Anemia type: unspecified type Qualified Code(s): D64.9 - Anemia, unspecified Code(s): D64.9 - Anemia, unspecified Status: Chronic Assessment and Plan: Hgb 8.5. Previous range in 2023: 7.9-10.5 MCV mildly elevated and normal MCHC. Recent irons tudies consistent with anemia of chronic disease. B12/folate normal. Check TSH (6) HTN (hypertension): Qualifiers: Hypertension type: primary hypertension Qualified Code(s): I10 - Essential (primary) hypertension Code(s): I10 - Essential (primary) hypertension Status: Chronic Assessment and Plan: Patient's blood pressure was reviewed on 05/27 Blood pressure remains well controlled. Will continue current medications. Plan DVT Prophylaxis: SCDs Code Status: DNR Subjective Date/time seen: 05/27/24 15:51 Interval history: 88yo male with dementia, DM, prostate CA and HTN here for altered mental status felt related to severe hypoglycemia. Patient is alert but confused and unable to provide hx. He is eating okay per RN. Review of Systems Review of Systems: ROS unobtainable: Yes unobtainable due to mental status Exam Narrative: AF 98.1 133/56 94 18 100% ra Gen - NARD Chest - R>L bibasilar crackles o/w clear, nml RR CV - RRR S1/S2. Tele showing occasional brief pause from a PAC Abd - Soft, NT/ND, Positive BS Ext - No pedal edema Psych - Nml mood and affect. alert, confused Skin - Warm and dry Objective Data Vital Signs Vital Signs: Vital Signs - 24 hr 05/26/24 16:00 05/26/24 16:00 05/26/24 16:00 Temperature 99.8 F H Pulse Rate 93 94 Respiratory Rate 22 H Blood Pressure 136/71 Pulse Oximetry 100 Oxygen Delivery Room Air 05/26/24 18:00 05/26/24 19:59 05/26/24 20:00 Temperature 97.7 F Pulse Rate 97 89 89 Respiratory Rate 22 H 24 H Blood Pressure 134/64 Pulse Oximetry 93 93 Oxygen Delivery Room Air 05/26/24 20:00 05/26/24 22:00 05/27/24 00:00 Temperature Pulse Rate 87 80 78 Respiratory Rate 24 H Blood Pressure Pulse Oximetry 93 Oxygen Delivery Room Air 05/27/24 00:00 05/27/24 00:17 05/27/24 02:00 Temperature 97.6 F Pulse Rate 77 83 83 Respiratory Rate Blood Pressure 134/64 Pulse Oximetry 96 Oxygen Delivery 05/27/24 04:00 05/27/24 04:00 05/27/24 04:22 Temperature 97.8 F Pulse Rate 80 80 81 Respiratory Rate 21 H 22 H Blood Pressure 116/66 Pulse Oximetry 93 100 Oxygen Delivery Room Air 05/27/24 05:52 05/27/24 08:00 05/27/24 08:00 Temperature 98.3 F Pulse Rate 89 82 Respiratory Rate 20 Blood Pressure 124/78 Pulse Oximetry 94 Oxygen Delivery Room Air 05/27/24 08:00 05/27/24 10:00 05/27/24 12:00 Temperature 98.1 F Pulse Rate 81 74 82 Respiratory Rate 18 Blood Pressure 133/56 L Pulse Oximetry 100 Oxygen Delivery 05/27/24 12:00 05/27/24 12:00 05/27/24 14:00 Temperature Pulse Rate 86 94 Respiratory Rate Blood Pressure Pulse Oximetry Oxygen Delivery Room Air Intake/Output Intake/Output: Intake & Output 05/24/24 05/25/24 05/26/24 05/27/24 23:59 23:59 23:59 23:59 Intake Total 170 2789.7 Output Total 300 150 Balance -130 2639.7 Meds/Results Medications: Active Medications Generic Name Dose Route Start Last Admin Trade Name Freq PRN Reason Stop Dose Admin Acetaminophen 650 mg 05/26/24 20:25 05/26/24 22:37 Acetaminophen 325 Mg Tablet PO 650 mg Q6H PRN Administration Mild Pain (1-3) or Fever Hydrocodone Bitart/Acetaminophen 1 tab 05/26/24 23:32 05/27/24 02:05 Hydrocodone/Acetaminophen (*Crx) 5-325 Mg Tablet PO 1 tab Q6H PRN Administration Pain Rated 4-6 Hydrocodone Bitart/Acetaminophen 1 tab 05/26/24 23:32 Hydrocodone/Acetaminophen (*Crx) 5-325 Mg Tablet PO Q8H PRN pain Dextrose 12.5 gm 05/26/24 14:15 05/26/24 14:32 Dextrose 50% 25 Gm/50 Ml Syringe IV PUSH 12.5 gm PRN PRN Administration Hypoglycemia Protocol Fenofibrate 160 mg 05/27/24 09:00 05/27/24 08:50 Fenofibrate 160 Mg Tablet PO 160 mg DAILY BIGG Administration Ferrous Sulfate 325 mg 05/27/24 09:00 05/27/24 08:50 Ferrous Sulfate [address] PO 06/26/24 08:59 325 mg DAILY BIGG Administration Glucagon 1 mg 05/26/24 14:15 Glucagon For Inj 1 Mg Vial IM PRN PRN Hypoglycemia Protocol Glucose 15 gm 05/26/24 14:15 Glucose Oral Gel 15 Gm Of Glucse In 37.5 Gm Tube PO PRN PRN Hypoglycemia Protocol Dextrose 1,000 mls @ 100 mls/hr 05/26/24 14:15 Dextrose 5% 1,000 Ml IVPB PRN PRN Hypoglycemia Protocol Ceftriaxone Sodium 2 gm in 100 mls @ 200 mls/hr 05/27/24 09:00 05/27/24 09:20 Rocephin 2 Gm/Ns 100 Ml IVPB Infused Q24H BIGG Infusion Insulin Aspart 2 - 5 units 05/26/24 17:00 05/27/24 12:21 Insulin Aspart (*Bkc) 100 Units/Ml SUB-Q Not Given TIDWM [facility] Protocol Lactobacillus Acidophilus 1 tablet 05/27/24 09:00 05/27/24 08:50 Acidophilus/Bulgaricus Chewable Tablet PO 06/26/24 08:59 1 tablet DAILY BIGG Administration Losartan Potassium 50 mg 05/27/24 09:00 05/27/24 08:50 Losartan Potassium 50 Mg Tablet PO 50 mg DAILY BIGG Administration Pantoprazole Sodium 40 mg 05/27/24 09:00 05/27/24 08:50 Pantoprazole 40 Mg Tablet PO 06/26/24 08:59 40 mg DAILY BIGG Administration Psyllium Hydrophilic Mucilloid 1 packet 05/27/24 09:00 05/27/24 08:50 Psyllium Powder Packet PO 06/26/24 08:59 1 packet DAILY BIGG Administration Tamsulosin HCl 0.8 mg 05/27/24 09:00 05/27/24 08:50 Tamsulosin Hcl 0.4 Mg Capsule PO 0.8 mg DAILY BIGG Administration Vitamin D 2,000 units 05/27/24 09:00 05/27/24 08:50 Cholecalciferol 1,000 Units Tablet PO 2,000 units DAILY BIGG Administration Radiology Results: ITS Impressions Chest X-Ray 05/26/24 09:51 Impression: 1: Mild interstitial edema. Head CT 05/26/24 11:06 Impression: No intracranial hemorrhage, mass, or acute infarct. Atrophy and chronic white matter changes, as above. Labs Labs: Laboratory Results - last 24 hr 05/26/24 05/26/24 05/26/24 16:02 16:29 16:55 WBC RBC Hgb Hct MCV MCH MCHC RDW Plt Count MPV Immature Gran % (Auto) Neut % (Auto) Lymph % (Auto) Pike % (Auto) Eos % (Auto) Baso % (Auto) Lymph # (Auto) Pike # (Auto) Eos # (Auto) Baso # (Auto) Abs Immat Gran (auto) Absolute Neuts (auto) Absolute Nucleated RBC Nucleated RBC % Sodium Potassium Chloride Carbon Dioxide Anion Gap BUN Creatinine Estim Creat Clear Calc Estimated GFR Glucose POC Capillary Glucose 68 Hemoglobin A1c Calcium Total Bilirubin AST ALT Alkaline Phosphatase Total Protein Albumin Vitamin B12 Procalcitonin 3.7 Influenza A (RT-PCR) Negative Influenza B (RT-PCR) Negative RSV (RT-PCR) Negative SARS-CoV-2 RNA (RT-PCR) Negative 05/26/24 05/26/24 05/26/24 18:16 19:49 21:16 WBC RBC Hgb Hct MCV MCH MCHC RDW Plt Count MPV Immature Gran % (Auto) Neut % (Auto) Lymph % (Auto) Pike % (Auto) Eos % (Auto) Baso % (Auto) Lymph # (Auto) Pike # (Auto) Eos # (Auto) Baso # (Auto) Abs Immat Gran (auto) Absolute Neuts (auto) Absolute Nucleated RBC Nucleated RBC % Sodium Potassium Chloride Carbon Dioxide Anion Gap BUN Creatinine Estim Creat Clear Calc Estimated GFR Glucose POC Capillary Glucose 113 H 99 107 H Hemoglobin A1c Calcium Total Bilirubin AST ALT Alkaline Phosphatase Total Protein Albumin Vitamin B12 Procalcitonin Influenza A (RT-PCR) Influenza B (RT-PCR) RSV (RT-PCR) SARS-CoV-2 RNA (RT-PCR) 05/26/24 05/27/24 05/27/24 23:47 01:47 04:42 WBC RBC Hgb Hct MCV MCH MCHC RDW Plt Count MPV Immature Gran % (Auto) Neut % (Auto) Lymph % (Auto) Pike % (Auto) Eos % (Auto) Baso % (Auto) Lymph # (Auto) Pike # (Auto) Eos # (Auto) Baso # (Auto) Abs Immat Gran (auto) Absolute Neuts (auto) Absolute Nucleated RBC Nucleated RBC % Sodium Potassium Chloride Carbon Dioxide Anion Gap BUN Creatinine Estim Creat Clear Calc Estimated GFR Glucose POC Capillary Glucose 115 H 127 H 126 H Hemoglobin A1c Calcium Total Bilirubin AST ALT Alkaline Phosphatase Total Protein Albumin Vitamin B12 Procalcitonin Influenza A (RT-PCR) Influenza B (RT-PCR) RSV (RT-PCR) SARS-CoV-2 RNA (RT-PCR) 05/27/24 05/27/24 05/27/24 05:03 07:36 10:24 WBC 12.6 H RBC 2.29 L Hgb 8.0 L Hct 23.4 L MCV 102.2 H MCH 34.9 H MCHC 34.2 RDW 17.7 H Plt Count 185 MPV 9.9 Immature Gran % (Auto) 0.8 H Neut % (Auto) 81.6 H Lymph % (Auto) 13.2 L Pike % (Auto) 3.9 Eos % (Auto) 0.2 Baso % (Auto) 0.3 Lymph # (Auto) 1.66 Pike # (Auto) 0.5 Eos # (Auto) 0.0 Baso # (Auto) 0.0 Abs Immat Gran (auto) 0.10 H Absolute Neuts (auto) 10.3 H Absolute Nucleated RBC 0.000 Nucleated RBC % 0.0 Sodium 137 Potassium 4.1 Chloride 108 H Carbon Dioxide 26 Anion Gap 3 L BUN 28 H Creatinine 0.90 Estim Creat Clear Calc 35 Estimated GFR > 60 Glucose 119 H POC Capillary Glucose 119 H 163 H Hemoglobin A1c 5.2 Calcium 8.3 L Total Bilirubin 1.4 H AST 77 H ALT 40 Alkaline Phosphatase 57 Total Protein 5.0 L Albumin 2.2 L Vitamin B12 960.0 H Procalcitonin Influenza A (RT-PCR) Influenza B (RT-PCR) RSV (RT-PCR) SARS-CoV-2 RNA (RT-PCR) 05/27/24 12:08 WBC RBC Hgb Hct MCV MCH MCHC RDW Plt Count MPV Immature Gran % (Auto) Neut % (Auto) Lymph % (Auto) Pike % (Auto) Eos % (Auto) Baso % (Auto) Lymph # (Auto) Pike # (Auto) Eos # (Auto) Baso # (Auto) Abs Immat Gran (auto) Absolute Neuts (auto) Absolute Nucleated RBC Nucleated RBC % Sodium Potassium Chloride Carbon Dioxide Anion Gap BUN Creatinine Estim Creat Clear Calc Estimated GFR Glucose POC Capillary Glucose 177 H Hemoglobin A1c Calcium Total Bilirubin AST ALT Alkaline Phosphatase Total Protein Albumin Vitamin B12 Procalcitonin Influenza A (RT-PCR) Influenza B (RT-PCR) RSV (RT-PCR) SARS-CoV-2 RNA (RT-PCR)
[2024-05-27 16:41] LABS: Glucose Point of Care 241 mg/dl (65-105)
[2024-05-27 17:44] LABS: Folic Acid 11.7 ng/mL (2.76->20)
[2024-05-27 20:47] LABS: Glucose Point of Care 273 mg/dl (65-105)
--- NOTE | 2024-05-27 22:47 | PC.NURSE ---
This patient, Gordy Lynn, was transferred to [place] [id number] on 05/27/24 at 2225. Personal belongings sent with patient. Report given to DANILO Clark. Appropriate documentation sent with patient.
--- NOTE | 2024-05-27 22:48 | PC.NURSE ---
Spoke with Pt's Amber SHUKLA and updated her with the information about the patient transfer and new patient room number.
[2024-05-28] VITALS (7 sets, daily range): BP systolic 106–125; BP diastolic 63–73; PULSE 70–107; RESP 16–18; TEMP 35.8–36.5; O2SAT 95–100
[2024-05-28 01:21] LABS: Glucose Point of Care 282 mg/dl (65-105)
[2024-05-28 07:30] LABS: Hematocrit 24.5 % (42.0-52.0); Hemoglobin 8.1 g/dL (14.0-18.0); Mean Corpuscular HGB Conc 33.1 g/dl (32-36); Mean Corpuscular Volume 102.9 fl (80-100); Mean Platelet Volume 10.2 fl (7.4-10.4); Platelet Count Result 170 k/mm3 (150-375); Red Blood Count 2.38 M/mm3 (4.6-6.20); Red Cell Distribution Width 17.3 % (11.5-14.5); White Blood Count 7.2 K/mm3 (4.5-10.0)
[2024-05-28 07:41] LABS: Albumin Level 2.2 g/dL (3.5-5.1); Anion Gap 1 mmol/L (4-12); Blood Urea Nitrogen 26 mg/dL (9-20); Calcium 8.8 mg/dL (8.4-10.2); Carbon Dioxide 28 mmol/L (22-30); Chloride 111 mmol/L (98-107); Estimated CRCL calculation 36 ml/min; Estimated Glomerular Filt Rate > 60; Glucose 166 mg/dL (65-110); Phosphorus 2.5 mg/dL (2.5-4.5); Potassium 3.9 mmol/L (3.4-5.0); Sodium 140 mmol/L (137-145)
[2024-05-28 07:58] LABS: Glucose Point of Care 170 mg/dl (65-105)
[2024-05-28 08:24] LABS: Glucose Point of Care 182 mg/dl (65-105)
[2024-05-28] MEDS: metFORMIN HCL 250 MG TABLET PO (08:34)
[2024-05-28] MEDS: FENOFIBRATE 160 MG TABLET PO (08:34)
[2024-05-28] MEDS: FERROUS SULFATE 325 MG TABLET DR PO (08:34)
[2024-05-28] MEDS: LOSARTAN POTASSIUM 50 MG TABLET PO (08:34)
[2024-05-28] MEDS: CHOLECALCIFEROL 1,000 UNITS TABLET 2000 UNITS PO (08:34)
[2024-05-28] MEDS: ACIDOPHILUS/BULGARICUS CHEWABLE TABLET 1 TABLET PO (08:34)
[2024-05-28] MEDS: TAMSULOSIN HCL 0.4 MG CAPSULE 0.8 MG PO (08:34)
[2024-05-28] MEDS: cefTRIAXone 2 GM/NS 100 ML 2 GM/100 ML BAG IVPB (08:35)
[2024-05-28] MEDS: PANTOPRAZOLE 40 MG TABLET PO (08:35)
[2024-05-28] MEDS: PSYLLIUM POWDER PACKET 1 PACKET PO (08:37)
[2024-05-28 11:36] LABS: Glucose Point of Care 191 mg/dl (65-105)
--- NOTE | 2024-05-28 13:23 | PM.IMPN ---
Progress Note: A&P Assessment and Plan (1) Altered mental state: Qualifiers: Altered mental status type: disorientation Qualified Code(s): R41.0 - Disorientation, unspecified Code(s): R41.82 - Altered mental status, unspecified Status: Acute Assessment and Plan: Patient brought in for altered mental status. Head CT showing no intracranial hemorrhage, mass, or acute infarct but did show atrophy and chronic white matter changes. CXR showing mild interstitial edema. COVID, Influenza and RSV PCR negative. Suspect AMS secondary to hypoglycemia. Patient back to baseline. Continue PT/OT (2) Hypoglycemia: Code(s): E16.2 - Hypoglycemia, unspecified Status: Acute Assessment and Plan: Patient was here on 05/16 for AMS, hypoglycemia and complicated UTI and was discharged on 05/21/24. Glucose was corrected then glucose was normal or elevated during his hospital course. He was on sliding scale but not on scheduled insulin. At discharge, he was resumed on his Tresiba 15U QHS. Per [place] report to EMS, the patient was found lethargic. Glucose was 25 and staff gave IM glucagon. Repeat glucose was 35. D5LR started. Glucose has normalized. Holding home insulin Weaned off dextrose and glucose remains stable. Resolved. (3) T2DM (type 2 diabetes mellitus): Qualifiers: Diabetes mellitus complication status: with hypoglycemia Diabetes mellitus principal android developer insulin use: with penitentiary use Qualified Code(s): E11.649 - Type 2 diabetes mellitus with hypoglycemia without coma; Z79.4 - business development specialist (current) use of insulin Code(s): E11.9 - Type 2 diabetes mellitus without complications Status: Chronic Assessment and Plan: A1c 5.2%, The patient's blood glucose was reviewed on 05/28 Glucose remains reasonably well controlled. Continue AccuCheks. Hypoglycemia protocol available as needed. Continue close monitoring. Add metformin. (4) UTI (urinary tract infection): Qualifiers: Hematuria presence: without hematuria Urinary tract infection type: acute cystitis Qualified Code(s): N30.00 - Acute cystitis without hematuria Code(s): N39.0 - Urinary tract infection, site not specified Status: Acute Assessment and Plan: Recently hospitalized for AMS and found to have sepsis with a 5mm distal left ureteral stone with hydronephrosis s/p stent placement on 05/16/24. BCx and UCx positive for melendrez-sensitive EColi treated with meropenem. He was discharged on 05/21 on levaquin 750mg daily for 10 more days. Here, UA concerning for UTI. WBC 12.6K. PCT 3.7. Started on Ceftriaxone on 05/26, holding Levaquin. Urine culture negative. Resume Levaquin Thursday and treat through 05/31. (5) Anemia: Qualifiers: Anemia type: unspecified type Qualified Code(s): D64.9 - Anemia, unspecified Code(s): D64.9 - Anemia, unspecified Status: Chronic Assessment and Plan: Hgb 8.5. Previous range in 2023: 7.9-10.5 MCV mildly elevated and normal MCHC. Recent irons studies consistent with anemia of chronic disease. TSH, B12/folate normal. Hgb stable in the 8-9 range. Follow (6) HTN (hypertension): Qualifiers: Hypertension type: primary hypertension Qualified Code(s): I10 - Essential (primary) hypertension Code(s): I10 - Essential (primary) hypertension Status: Chronic Assessment and Plan: Patient's blood pressure was reviewed on 05/28 Blood pressure remains well controlled. Will continue to monitor (7) Protein calorie malnutrition: Code(s): E46 - Unspecified protein-calorie malnutrition Status: Acute Assessment and Plan: Albumin low at 2.2. He has mild diffuse edema probably related to low albumin. Proteinuria noted. Check protein/Cr ratio. Add supplements. Plan DVT Prophylaxis: SCDs Code Status: DNR Subjective Date/time seen: 05/28/24 13:23 Interval history: 88yo male with dementia, DM, prostate CA and HTN here for altered mental status felt related to severe hypoglycemia. Patient is alert but confused and unable to provide hx. He is sitting up in the chair feeding himself. Family in the room. Exam Narrative: AF 97.5 106/66 107 16 99% ra Gen - NARD Chest - Rt basilar crackles o/w clear, nml RR CV - RRR S1/S2 Abd - Soft, NT/ND, Positive BS Ext - mild diffuse UE/LE edema Psych - Nml mood and affect. alert, confused Skin - Warm and dry Objective Data Vital Signs Vital Signs: Vital Signs - 24 hr 05/27/24 14:00 05/27/24 16:00 05/27/24 16:00 Temperature 98.2 F Pulse Rate 94 93 Respiratory Rate 18 Blood Pressure 111/67 Pulse Oximetry 99 Oxygen Delivery Room Air 05/27/24 16:00 05/27/24 18:00 05/27/24 20:00 Temperature 98.1 F Pulse Rate 92 89 88 Respiratory Rate 16 Blood Pressure 112/60 Pulse Oximetry 100 Oxygen Delivery 05/27/24 20:00 05/28/24 00:35 05/28/24 05:25 Temperature 96.4 F L 97.7 F Pulse Rate 88 91 70 Respiratory Rate 16 18 16 Blood Pressure 109/63 110/68 Pulse Oximetry 100 95 98 Oxygen Delivery Room Air 05/28/24 08:00 05/28/24 10:16 05/28/24 10:33 Temperature 97.7 F Pulse Rate 95 Respiratory Rate 16 Blood Pressure 125/64 Pulse Oximetry 99 100 Oxygen Delivery Room Air Room Air 05/28/24 11:16 05/28/24 12:00 Temperature 97.5 F L Pulse Rate 107 H Respiratory Rate 16 Blood Pressure 106/66 Pulse Oximetry 99 Oxygen Delivery Room Air Intake/Output Intake/Output: Intake & Output 05/25/24 05/26/24 05/27/24 05/28/24 23:59 23:59 23:59 23:59 Intake Total 170 3179.7 760 Output Total 300 750 400 Balance -130 2429.7 360 Meds/Results Medications: Active Medications Generic Name Dose Route Start Last Admin Trade Name Freq PRN Reason Stop Dose Admin Acetaminophen 650 mg 05/26/24 20:25 05/26/24 22:37 Acetaminophen 325 Mg Tablet PO 650 mg Q6H PRN Administration Mild Pain (1-3) or Fever Hydrocodone Bitart/Acetaminophen 1 tab 05/26/24 23:32 05/27/24 02:05 Hydrocodone/Acetaminophen (*Crx) 5-325 Mg Tablet PO 1 tab Q6H PRN Administration Pain Rated 4-6 Hydrocodone Bitart/Acetaminophen 1 tab 05/26/24 23:32 Hydrocodone/Acetaminophen (*Crx) 5-325 Mg Tablet PO Q8H PRN pain Dextrose 12.5 gm 05/26/24 14:15 05/26/24 14:32 Dextrose 50% 25 Gm/50 Ml Syringe IV PUSH 12.5 gm PRN PRN Administration Hypoglycemia Protocol Fenofibrate 160 mg 05/27/24 09:00 11/09/24 08:34 Fenofibrate 160 Mg Tablet PO 160 mg DAILY BIGG Administration Ferrous Sulfate 325 mg 05/27/24 09:00 05/28/24 08:34 Ferrous Sulfate [address] PO 06/26/24 08:59 325 mg DAILY BIGG Administration Glucagon 1 mg 05/26/24 14:15 Glucagon For Inj 1 Mg Vial IM PRN PRN Hypoglycemia Protocol Glucose 15 gm 05/26/24 14:15 Glucose Oral Gel 15 Gm Of Glucse In 37.5 Gm Tube PO PRN PRN Hypoglycemia Protocol Dextrose 1,000 mls @ 100 mls/hr 05/26/24 14:15 Dextrose 5% 1,000 Ml IVPB PRN PRN Hypoglycemia Protocol Ceftriaxone Sodium 2 gm in 100 mls @ 200 mls/hr 05/27/24 09:00 05/28/24 09:05 Rocephin 2 Gm/Ns 100 Ml IVPB Infused Q24H BIGG Infusion Insulin Aspart 2 - 5 units 05/28/24 08:00 05/28/24 11:49 Insulin Aspart (*Bkc) 100 Units/Ml SUB-Q Not Given TIDWM BIGG Protocol Lactobacillus Acidophilus 1 tablet 05/27/24 09:00 05/28/24 08:34 Acidophilus/Bulgaricus Chewable Tablet PO 06/26/24 08:59 1 tablet DAILY BIGG Administration Losartan Potassium 50 mg 05/27/24 09:00 05/28/24 08:34 Losartan Potassium 50 Mg Tablet PO 50 mg DAILY BIGG Administration Metformin HCl 250 mg 05/28/24 08:00 05/28/24 08:34 Metformin Hcl 250 Mg Tablet PO 250 mg BIDWM BIGG Administration Pantoprazole Sodium 40 mg 05/27/24 09:00 05/28/24 08:35 Pantoprazole 40 Mg Tablet PO 06/26/24 08:59 40 mg DAILY BIGG Administration Psyllium Hydrophilic Mucilloid 1 packet 05/27/24 09:00 05/28/24 08:37 Psyllium Powder Packet PO 06/26/24 08:59 1 packet DAILY BIGG Administration Tamsulosin HCl 0.8 mg 05/27/24 09:00 05/28/24 08:34 Tamsulosin Hcl 0.4 Mg Capsule PO 0.8 mg DAILY BIGG Administration Vitamin D 2,000 units 05/27/24 09:00 05/28/24 08:34 Cholecalciferol 1,000 Units Tablet PO 2,000 units DAILY BIGG Administration Radiology Results: ITS Impressions Chest X-Ray 05/26/24 09:51 Impression: 1: Mild interstitial edema. Head CT 05/26/24 11:06 Impression: No intracranial hemorrhage, mass, or acute infarct. Atrophy and chronic white matter changes, as above. Labs Labs: Laboratory Results - last 24 hr 05/27/24 05/27/24 05/27/24 05:03 16:02 20:44 WBC RBC Hgb Hct MCV MCH MCHC RDW Plt Count MPV Sodium Potassium Chloride Carbon Dioxide Anion Gap BUN Creatinine Estim Creat Clear Calc Estimated GFR Glucose POC Capillary Glucose 241 H 273 H Calcium Phosphorus Albumin Vitamin B12 960.0 H Folate 11.7 TSH (Reflex) 05/28/24 05/28/24 05/28/24 00:41 05:31 07:22 WBC 7.2 RBC 2.38 L Hgb 8.1 L Hct 24.5 L MCV 102.9 H MCH 34.0 MCHC 33.1 RDW 17.3 H Plt Count 170 MPV 10.2 Sodium 140 Potassium 3.9 Chloride 111 H Carbon Dioxide 28 Anion Gap 1 L BUN 26 H Creatinine 0.90 Estim Creat Clear Calc 36 Estimated GFR > 60 Glucose 166 H POC Capillary Glucose 282 H 182 H Calcium 8.8 Phosphorus 2.5 Albumin 2.2 L Vitamin B12 Folate TSH (Reflex) 4.880 H 05/28/24 05/28/24 07:55 11:25 WBC RBC Hgb Hct MCV MCH MCHC RDW Plt Count MPV Sodium Potassium Chloride Carbon Dioxide Anion Gap BUN Creatinine Estim Creat Clear Calc Estimated GFR Glucose POC Capillary Glucose 170 H 191 H Calcium Phosphorus Albumin Vitamin B12 Folate TSH (Reflex)
[2024-05-28 15:59] LABS: Glucose Point of Care 176 mg/dl (65-105)
[2024-05-28 17:54] LABS: Creatinine Urine 132.7 mg/dL; Total Protein Urine Random 93 mg/dL
[2024-05-28 20:26] LABS: Glucose Point of Care 158 mg/dl (65-105)
[2024-05-29] VITALS (7 sets, daily range): BP systolic 84–128; BP diastolic 52–90; PULSE 79–114; RESP 16–18; TEMP 35.7–36.6; O2SAT 98–100
[2024-05-29 00:42] LABS: Free T4 Free Thyroxine Reflex 1.35 ng/dL (0.78-2.19)
[2024-05-29 01:33] LABS: Glucose Point of Care 143 mg/dl (65-105)
[2024-05-29] MEDS: HYDROcodone/acetaminophen (*CRX) 5-325 MG TABLET 1 TAB PO (01:55)
[2024-05-29 05:58] LABS: Glucose Point of Care 140 mg/dl (65-105)
[2024-05-29 06:20] LABS: Basophils Absolute Auto 0.1 K/mm3 (0.0-0.1); Basophils Percent Auto 1.1 % (0.2-1.2); Eosinophils Absolute Auto 0.1 K/mm3 (0-0.3); Eosinophils Percent Auto 1.2 % (0-4.4); Hemoglobin 8.4 g/dL (14.0-18.0); Immature Granulocyte Absolute 0.03 K/mm3 (0.00-0.031); Immature Granulocyte Percent A 0.5 % (0-0.5); Lymphocytes Percent Auto 26.7 % (18.3-44.2); Mean Corpuscular HGB Conc 32.3 g/dl (32-36); Mean Corpuscular Hemoglobin 33.7 pg (26-34); Mean Corpuscular Volume 104.4 fl (80-100); Mean Platelet Volume 10.6 fl (7.4-10.4); Monocytes Absolute Auto 0.4 K/mm3 (0.1-0.6); Monocytes Percent Auto 7.7 % (2.6-8.5); Neutrophils Absolute Auto 3.5 K/mm3 (1.3-6.7); Neutrophils Percent Auto 62.8 % (45.5-73.1); Platelet Count Result 182 k/mm3 (150-375); Red Blood Count 2.49 M/mm3 (4.6-6.20); Red Cell Distribution Width 17.7 % (11.5-14.5); White Blood Count 5.6 K/mm3 (4.5-10.0)
[2024-05-29 06:33] LABS: Albumin Level 2.3 g/dL (3.5-5.1); Anion Gap 2 mmol/L (4-12); Blood Urea Nitrogen 29 mg/dL (9-20); Calcium 8.8 mg/dL (8.4-10.2); Carbon Dioxide 28 mmol/L (22-30); Chloride 109 mmol/L (98-107); Estimated CRCL calculation 32 ml/min; Estimated Glomerular Filt Rate > 60; Glucose 138 mg/dL (65-110); Magnesium 1.9 mg/dL (1.6-2.3); Phosphorus 2.9 mg/dL (2.5-4.5); Potassium 3.8 mmol/L (3.4-5.0); Sodium 139 mmol/L (137-145)
[2024-05-29] MEDS: TAMSULOSIN HCL 0.4 MG CAPSULE 0.8 MG PO (08:32)
[2024-05-29] MEDS: ACIDOPHILUS/BULGARICUS CHEWABLE TABLET 1 TABLET PO (08:32)
[2024-05-29] MEDS: PANTOPRAZOLE 40 MG TABLET PO (08:32)
[2024-05-29] MEDS: metFORMIN HCL 250 MG TABLET PO (08:32)
[2024-05-29] MEDS: ACETAMINOPHEN 325 MG TABLET 650 MG PO (08:32)
[2024-05-29] MEDS: FENOFIBRATE 160 MG TABLET PO (08:33)
[2024-05-29] MEDS: cefTRIAXone 2 GM/NS 100 ML 2 GM/100 ML BAG IVPB (08:33)
[2024-05-29] MEDS: CHOLECALCIFEROL 1,000 UNITS TABLET 2000 UNITS PO (08:33)
[2024-05-29] MEDS: LOSARTAN POTASSIUM 50 MG TABLET PO (08:33)
[2024-05-29] MEDS: FERROUS SULFATE 325 MG TABLET DR PO (08:33)
[2024-05-29 09:20] LABS: Glucose Point of Care 194 mg/dl (65-105)
[2024-05-29] MEDS: SODIUM CHLORIDE 0.9% IV 500 ML 999 ML IV CONT (12:45)
--- NOTE | 2024-05-29 12:46 | P.PNIM_ITS ---
Progress Note: A&P Assessment and Plan (1) Altered mental state: Qualifiers: Altered mental status type: disorientation Qualified Code(s): R41.0 - Disorientation, unspecified Code(s): R41.82 - Altered mental status, unspecified Status: Acute Assessment and Plan: Patient brought in for altered mental status. Head CT showing no intracranial hemorrhage, mass, or acute infarct but did show atrophy and chronic white matter changes. CXR showing mild interstitial edema. COVID, Influenza and RSV PCR negative. Suspect AMS secondary to hypoglycemia. Patient back to baseline. Continue PT/OT (2) Hypoglycemia: Code(s): E16.2 - Hypoglycemia, unspecified Status: Acute Assessment and Plan: Patient was here on 05/16 for AMS, hypoglycemia and complicated UTI and was discharged on 05/21/24. Glucose was corrected then glucose was normal or elevated during his hospital course. He was on sliding scale but not on scheduled insulin. At discharge, he was resumed on his Tresiba 15U QHS. Per [place] report to EMS, the patient was found lethargic. Glucose was 25 and staff gave IM glucagon. Repeat glucose was 35. D5LR started. Glucose has normalized. Holding home insulin. Waned off dextrose and able to maintain glucose. Resolved. (3) T2DM (type 2 diabetes mellitus): Qualifiers: Diabetes mellitus intermediate insulin use: with intermediate use Diabetes mellitus complication status: with hypoglycemia Qualified Code(s): E11.649 - Type 2 diabetes mellitus with hypoglycemia without coma; Z79.4 - MCC (current) use of insulin Code(s): E11.9 - Type 2 diabetes mellitus without complications Status: Chronic Assessment and Plan: A1c 5.2%, The patient's blood glucose was reviewed on 05/29 Glucose remains reasonably well controlled. Glucose 138 this morning. Continue AccuCheks. Stop metformin. Hypoglycemia protocol available as needed. Continue close monitoring. (4) UTI (urinary tract infection): Qualifiers: Urinary tract infection type: acute cystitis Hematuria presence: without hematuria Qualified Code(s): N30.00 - Acute cystitis without hematuria Code(s): N39.0 - Urinary tract infection, site not specified Status: Acute Assessment and Plan: Recently hospitalized for AMS and found to have sepsis with a 5mm distal left ureteral stone with hydronephrosis s/p stent placement on 05/16/24. BCx and UCx positive for melendrez-sensitive EColi treated with meropenem. He was discharged on 05/21 on levaquin 750mg daily for 10 more days. Here, UA concerning for UTI. WBC 12.6K. PCT 3.7. Started on Ceftriaxone on 05/26, holding Levaquin. Urine culture negative. Resume Levaquin Thursday and treat through 05/31. (5) Anemia: Qualifiers: Anemia type: unspecified type Qualified Code(s): D64.9 - Anemia, unspecified Code(s): D64.9 - Anemia, unspecified Status: Chronic Assessment and Plan: Hgb 8.5. Previous range in 2023: 7.9-10.5 MCV mildly elevated and normal MCHC. Recent irons studies consistent with anemia of chronic disease. TSH, B12/folate normal. Hgb stable in the 8-9 range. Follow (6) HTN (hypertension): Qualifiers: Hypertension type: primary hypertension Qualified Code(s): I10 - Essential (primary) hypertension Code(s): I10 - Essential (primary) hypertension Status: Chronic Assessment and Plan: Patient's blood pressure was reviewed on 05/29 Blood pressure was soft today. Probably related to poor oral intake. Fluid bolus and hold Cozaar. If no benefit, give albumin. Will continue to monitor (7) Protein calorie malnutrition: Code(s): E46 - Unspecified protein-calorie malnutrition Status: Acute Assessment and Plan: Albumin low at 2.2. He has mild diffuse edema probably related to low albumin. Proteinuria noted. Protein/Cr ratio 0.7gm. Supplements added. Stop metformin since side effects may contribute to poor roal intake add appetite stimulant (8) ILD (interstitial lung disease): Code(s): J84.9 - Interstitial pulmonary disease, unspecified Status: Acute Assessment and Plan: CXR on admission showing mild interstital edema but probably more likely ILD. 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 Repeat CXR here showing chronic ILD. Not on o2. Follow Plan DVT Prophylaxis: SCDs Code Status: DNR Subjective Date/time seen: 05/29/24 12:46 Interval history: 88yo male with dementia, DM, prostate CA and HTN here for altered mental status felt related to severe hypoglycemia. Patient is alert but confused and unable to provide hx. He is sitting up in the chair. No family in the room. Review of Systems Review of Systems: ROS unobtainable: Yes unobtainable due to mental status Exam Narrative: AF 97.3 128/90 114 16 100% ra Gen - NARD Chest - bibasilar crackles o/w clear, nml RR CV - RRR S1/S2 Abd - Soft, NT/ND, Positive BS Ext - trace LE edema Psych - Nml mood and affect. alert, confused Skin - Warm and dry Objective Data Vital Signs Vital Signs: Vital Signs - 24 hr 05/28/24 16:00 05/28/24 20:00 05/28/24 20:15 Temperature 97.6 F 97.5 F L Pulse Rate 88 87 Respiratory Rate 16 18 Blood Pressure 107/73 118/65 Pulse Oximetry 100 99 Oxygen Delivery Room Air 05/29/24 01:25 05/29/24 05:50 05/29/24 08:00 Temperature 96.2 F L 98 F 97.3 F L Pulse Rate 79 85 114 H Respiratory Rate 18 18 16 Blood Pressure 119/67 128/90 Pulse Oximetry 100 100 100 Oxygen Delivery Intake/Output Intake/Output: Intake & Output 05/26/24 05/27/24 05/28/24 05/29/24 23:59 23:59 23:59 23:59 Intake Total 170 3179.7 760 436 Output Total 300 750 400 Balance -130 2429.7 360 436 Meds/Results Medications: Active Medications Generic Name Dose Route Start Last Admin Trade Name Freq PRN Reason Stop Dose Admin Acetaminophen 650 mg 05/26/24 20:25 05/29/24 08:32 Acetaminophen 325 Mg Tablet PO 650 mg Q6H PRN Administration Mild Pain (1-3) or Fever Hydrocodone Bitart/Acetaminophen 1 tab 05/26/24 23:32 05/29/24 01:55 Hydrocodone/Acetaminophen (*Crx) 5-325 Mg Tablet PO 1 tab Q6H PRN Administration Pain Rated 4-6 Hydrocodone Bitart/Acetaminophen 1 tab 05/26/24 23:32 Hydrocodone/Acetaminophen (*Crx) 5-325 Mg Tablet PO Q8H PRN pain Dextrose 12.5 gm 05/26/24 14:15 05/26/24 14:32 Dextrose 50% 25 Gm/50 Ml Syringe IV PUSH 12.5 gm PRN PRN Administration Hypoglycemia Protocol Fenofibrate 160 mg 05/27/24 09:00 05/29/24 08:33 Fenofibrate 160 Mg Tablet PO 160 mg DAILY BIGG Administration Ferrous Sulfate 325 mg 05/27/24 09:00 05/29/24 08:33 Ferrous Sulfate [address] PO 06/26/24 08:59 325 mg DAILY BIGG Administration Glucagon 1 mg 05/26/24 14:15 Glucagon For Inj 1 Mg Vial IM PRN PRN Hypoglycemia Protocol Glucose 15 gm 05/26/24 14:15 Glucose Oral Gel 15 Gm Of Glucse In 37.5 Gm Tube PO PRN PRN Hypoglycemia Protocol Dextrose 1,000 mls @ 100 mls/hr 05/26/24 14:15 Dextrose 5% 1,000 Ml IVPB PRN PRN Hypoglycemia Protocol Ceftriaxone Sodium 2 gm in 100 mls @ 200 mls/hr 05/27/24 09:00 05/29/24 08:33 Rocephin 2 Gm/Ns 100 Ml IVPB 100 mls/hr Q24H BIGG Administration Sodium Chloride 500 mls @ 999 mls/hr 05/29/24 12:39 05/29/24 12:45 Normal Saline Iv IV CONT 05/29/24 13:09 999 mls/hr .Q31M STA Administration Insulin Aspart 2 - 5 units 05/28/24 08:00 05/29/24 12:45 Insulin Aspart (*Bkc) 100 Units/Ml SUB-Q Not Given TIDWM BIGG Protocol Lactobacillus Acidophilus 1 tablet 05/27/24 09:00 05/29/24 08:32 Acidophilus/Bulgaricus Chewable Tablet PO 06/26/24 08:59 1 tablet DAILY BIGG Administration Losartan Potassium 50 mg 05/27/24 09:00 05/29/24 08:33 Losartan Potassium 50 Mg Tablet PO 50 mg DAILY BIGG Administration Metformin HCl 250 mg 05/28/24 08:00 05/29/24 08:32 Metformin Hcl 250 Mg Tablet PO 250 mg BIDWM BIGG Administration Pantoprazole Sodium 40 mg 05/27/24 09:00 05/29/24 08:32 Pantoprazole 40 Mg Tablet PO 06/26/24 08:59 40 mg DAILY BIGG Administration Psyllium Hydrophilic Mucilloid 1 packet 05/27/24 09:00 05/29/24 08:36 Psyllium Powder Packet PO 06/26/24 08:59 Not Given DAILY BIGG Tamsulosin HCl 0.8 mg 05/27/24 09:00 05/29/24 08:32 Tamsulosin Hcl 0.4 Mg Capsule PO 0.8 mg DAILY BIGG Administration Vitamin D 2,000 units 05/27/24 09:00 05/29/24 08:33 Cholecalciferol 1,000 Units Tablet PO 2,000 units DAILY BIGG Administration Radiology Results: ITS Impressions Head CT 05/26/24 11:06 Impression: No intracranial hemorrhage, mass, or acute infarct. Atrophy and chronic white matter changes, as above. Chest X-Ray 05/29/24 07:38 Impression: Chronic interstitial pulmonary disease is stable from prior exam. Labs Labs: Laboratory Results - last 24 hr 05/28/24 05/28/24 05/28/24 07:22 15:57 17:31 WBC RBC Hgb Hct MCV MCH MCHC RDW Plt Count MPV Immature Gran % (Auto) Neut % (Auto) Lymph % (Auto) Lipscomb % (Auto) Eos % (Auto) Baso % (Auto) Lymph # (Auto) Lipscomb # (Auto) Eos # (Auto) Baso # (Auto) Abs Immat Gran (auto) Absolute Neuts (auto) Absolute Nucleated RBC Nucleated RBC % Sodium Potassium Chloride Carbon Dioxide Anion Gap BUN Creatinine Estim Creat Clear Calc Estimated GFR Glucose POC Capillary Glucose 176 H Calcium Phosphorus Magnesium Albumin Free T4 1.35 Total T3 0.60 L U Random Total Protein 93 Urine Creatinine 132.7 Protein/Creat Ratio 2 0.70 H 05/28/24 05/29/24 05/29/24 20:21 01:29 05:54 WBC RBC Hgb Hct MCV MCH MCHC RDW Plt Count MPV Immature Gran % (Auto) Neut % (Auto) Lymph % (Auto) Lipscomb % (Auto) Eos % (Auto) Baso % (Auto) Lymph # (Auto) Lipscomb # (Auto) Eos # (Auto) Baso # (Auto) Abs Immat Gran (auto) Absolute Neuts (auto) Absolute Nucleated RBC Nucleated RBC % Sodium Potassium Chloride Carbon Dioxide Anion Gap BUN Creatinine Estim Creat Clear Calc Estimated GFR Glucose POC Capillary Glucose 158 H 143 H 140 H Calcium Phosphorus Magnesium Albumin Free T4 Total T3 U Random Total Protein Urine Creatinine Protein/Creat Ratio 2 05/29/24 05/29/24 06:06 08:55 WBC 5.6 RBC 2.49 L Hgb 8.4 L Hct 26.0 L MCV 104.4 H MCH 33.7 MCHC 32.3 RDW 17.7 H Plt Count 182 MPV 10.6 H Immature Gran % (Auto) 0.5 Neut % (Auto) 62.8 Lymph % (Auto) 26.7 Lipscomb % (Auto) 7.7 Eos % (Auto) 1.2 Baso % (Auto) 1.1 Lymph # (Auto) 1.50 Lipscomb # (Auto) 0.4 Eos # (Auto) 0.1 Baso # (Auto) 0.1 Abs Immat Gran (auto) 0.03 Absolute Neuts (auto) 3.5 Absolute Nucleated RBC 0.000 Nucleated RBC % 0.0 Sodium 139 Potassium 3.8 Chloride 109 H Carbon Dioxide 28 Anion Gap 2 L BUN 29 H Creatinine 1.00 Estim Creat Clear Calc 32 Estimated GFR > 60 Glucose 138 H POC Capillary Glucose 194 H Calcium 8.8 Phosphorus 2.9 Magnesium 1.9 Albumin 2.3 L Free T4 Total T3 U Random Total Protein Urine Creatinine Protein/Creat Ratio 2
[2024-05-29 12:47] LABS: Glucose Point of Care 254 mg/dl (65-105)
[2024-05-29] MEDS: MEGESTROL ACETATE (*CHEMO) ORAL SUSP 40 MG/ML SYR 800 MG PO (15:14)
[2024-05-29 16:32] LABS: Glucose Point of Care 190 mg/dl (65-105)
[2024-05-29 21:43] LABS: Glucose Point of Care 245 mg/dl (65-105)
[2024-05-30 01:05] VITALS: BP 119/70; PULSE 83; RESP 20; TEMP 36.6; O2SAT 99
[2024-05-30 01:06] LABS: Glucose Point of Care 298 mg/dl (65-105)
[2024-05-30 05:20] VITALS: BP 127/77; PULSE 90; RESP 18; TEMP 36.7; O2SAT 100
[2024-05-30 06:09] LABS: Glucose Point of Care 270 mg/dl (65-105)
[2024-05-30 07:35] LABS: Glucose Point of Care 270 mg/dl (65-105)
[2024-05-30 07:39] VITALS: BP 100/79; PULSE 94; RESP 18; TEMP 36.6; O2SAT 100
[2024-05-30] MEDS: INSULIN ASPART (*BKC) 100 UNITS/ML SUB-Q ×2 (07:57→12:40)
[2024-05-30] MEDS: TAMSULOSIN HCL 0.4 MG CAPSULE 0.8 MG PO (07:57)
[2024-05-30] MEDS: CHOLECALCIFEROL 1,000 UNITS TABLET 2000 UNITS PO (07:57)
[2024-05-30] MEDS: FENOFIBRATE 160 MG TABLET PO (07:58)
[2024-05-30] MEDS: levoFLOXacin 750 MG TABLET PO (07:58)
[2024-05-30] MEDS: PANTOPRAZOLE 40 MG TABLET PO (07:58)
[2024-05-30] MEDS: ACIDOPHILUS/BULGARICUS CHEWABLE TABLET 1 TABLET PO (07:58)
[2024-05-30 11:22] LABS: Glucose Point of Care 254 mg/dl (65-105)
[2024-05-30 11:42] VITALS: BP 100/62; PULSE 96; RESP 18; TEMP 36.4; O2SAT 100
[2024-05-30] MEDS: FERROUS SULFATE 325 MG TABLET DR PO (12:40)
--- NOTE | 2024-05-30 14:59 | P.DS_ITS ---
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 Diabetes mellitus complication status: with hypoglycemia Qualified Code(s): E11.649 - Type 2 diabetes mellitus with hypoglycemia without coma; Z79.4 - intermodal owner operator truck driver (current) use of insulin Code(s): E11.9 - Type 2 diabetes mellitus without complications Status: Chronic (4) UTI (urinary tract infection): Qualifiers: Urinary tract infection type: acute cystitis Hematuria presence: without hematuria Qualified Code(s): N30.00 - Acute cystitis without hematuria Code(s): N39.0 - Urinary tract infection, site not specified Status: Acute (5) Anemia: Qualifiers: Anemia type: unspecified type Qualified Code(s): D64.9 - Anemia, unspecified Code(s): D64.9 - Anemia, unspecified Status: Chronic (6) HTN (hypertension): Qualifiers: Hypertension type: primary hypertension Qualified Code(s): I10 - Essential (primary) hypertension Code(s): I10 - Essential (primary) hypertension Status: Chronic (7) Protein calorie malnutrition: Code(s): E46 - Unspecified protein-calorie malnutrition Status: Acute (8) ILD (interstitial lung disease): Code(s): J84.9 - Interstitial pulmonary disease, unspecified Status: Acute DS: Summary Hospital Course Reason for hospitalization: 88yo male with dementia, DM, prostate CA and HTN here for altered mental status felt related to severe hypoglycemia. Please see H&P for details. Hospital Course: Patient brought in for altered mental status. Head CT showing no intracranial hemorrhage, mass, or acute infarct but did show atrophy and chronic white matter changes. CXR showing mild interstitial edema. COVID, Influenza and RSV PCR negative. Suspect AMS secondary to hypoglycemia. Patient back to baseline once glucose normalized. He worked with PT/OT. Patient was here on 05/16 for AMS, hypoglycemia and complicated UTI and was discharged on 05/21/24 back on his Tresiba 15U QHS. Per [place] report to EMS, the patient was found lethargic. Glucose was 25 and staff gave IM glucagon. Repeat glucose was 35. D5LR started. Glucose has normalized. he was weaned off dextrose and he was able to maintain glucose. A1c 5.2%. Recently hospitalized for AMS and found to have sepsis with a 5mm distal left ureteral stone with hydronephrosis s/p stent placement on 05/16/24. BCx and UCx positive for melendrez-sensitive EColi treated with meropenem. He was discharged on 05/21 on levaquin 750mg daily for 10 more days. Here, UA concerning for UTI. WBC 12.6K. PCT 3.7. He was started on Ceftriaxone on 05/26 and we held Levaquin. Urine culture negative. He resumed on Levaquin 05/30 and only needed one dose to complete the course given his renal function. Hgb 8.5. Previous range in 2023: 7.9-10.5. MCV mildly elevated and normal MCHC. Recent irons studies consistent with anemia of chronic disease. TSH, B12/folate normal. Hgb remained stable in the 8-9 range. Patient's blood pressure was soft at times probably related to poor oral intake. We held Cozaar. Albumin low at 2.2. He has mild diffuse edema probably related to low albumin. Proteinuria noted but Protein/Cr ratio 0.7gm. Supplements added. Appetite stimulant added. He wsa having bilateral lower extremity edema but dopple negative for DVT. CXR on admission showing mild interstitial edema but probably more likely ILD. 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 He overall did well and was able to be discharged on 05/30/24. Status at Discharge Cognitive/behavioral status at discharge: stable. Time Spent with Patient Time attestation: Total time spent providing and/or coordinating discharge services: 38 minutes Time spent: Greater than 30 minutes Exam Narrative: AF 97.5 100/62 96 18 100% ra Gen - NARD Chest - clear anteriorly and in the flanks CV - RRR S1/S2 Abd - Soft, NT/ND, Positive BS Ext - trace LE edema; Negative Homans Psych - Nml mood and affect. alert, confused Skin - Warm and dry DS: Data Data Completed and Pending Labs on day of discharge: Labs from last 24 hours 05/30/24 05/30/24 05/30/24 11:20 07:26 05:32 POC Capillary Glucose 254 H 270 H 270 H 05/30/24 05/29/24 05/29/24 01:03 21:38 16:14 POC Capillary Glucose 298 H 245 H 190 H Discharge Plan Discharge Attending physician on discharge: David Nguyen Discharging Clinician: David Nguyen Anticipated Discharge Date/Time: 05/30/24 15:09 Patient Disposition: [facility] Activity: as tolerated Diet: diabetic Discharge Instructions: Please add dietary supplements. Please check glucose before meals and before bed. Record for the doctor's review. Check blood pressure 1 to 2 times a day. Record for the doctor's review. Take precautions to avoid falls. Rise slowly from a lying or sitting position. Pause before standing or walking. Contact the doctor if the patient has fevers, lightheadedness with standing or other worrisome symptoms. Avoid NSAIDs (ibuprofen, naproxen, Aleve). Tylenol is safe to take. Follow-up with the provider at the facility. Thank you for using [facility] for your health care needs. Follow-up/Referrals: Michael Lopez MD [Primary Care Provider] - Call for Appointment Discharge Medications: New megestrol 400 mg/10 mL (10 mL) Suspension 800 mg PO QAM Qty: 300 0RF Continued ferrous sulfate 325 mg (65 mg iron) Tablet 325 mg PO DAILY cholecalciferol (vitamin D3) [Vitamin D3] 50 mcg (2,000 unit) Tablet 50 mcg PO DAILY psyllium husk [Metamucil] 0.4 gram Capsule 0.4 g PO DAILY Daily Probiotic 2.5 billion cell Capsule 1 cap PO DAILY tamsulosin 0.4 mg capsule 0.8 mg PO DAILY omeprazole 20 mg capsule,delayed release(DR/EC) 20 mg PO DAILY fenofibrate 160 mg tablet 160 mg PO DAILY Qty: 90 1RF Discontinued losartan 50 mg tablet 50 mg PO DAILY levofloxacin 750 mg tablet 750 mg PO DAILY Qty: 10 0RF Rx Instructions: stop 05/31/2024 hydrocodone-acetaminophen 5-325 mg tablet 1 tablet PO Q8H PRN (Reason: pain) Qty: 20 0RF hydrocodone-acetaminophen 5-325 mg Tablet 1 tablet PO Q6H PRN (Reason: Pain Rated 4-6) 5 Days Qty: 10 0RF insulin degludec [Tresiba FlexTouch U-100] 100 unit/mL (3 mL) insulin pen 15 unit subcut QHS Qty: 15 1RF Date of admission: 05/27/24 13:03 Primary Care Provider: Michael Lopez Admitting Provider: David Nguyen Attending physician on admission: David Nguyen Condition: Stable Hospitalist MIPS Heart Failure (Exclusion) Patient has history of Heart Transplant or Left Ventricular Assistive Device?: No IF YES, STOP HERE Heart Failure (Qualifier) Patient has current or prior documentation of LVEF less than or equal to 40%, or mod/servere depressed LVSF?: No IF NO, STOP HERE
== END 2024-05-30 15:20 | DRG 638 ==
LOC: ANHED 09:10 → ANHIMU 13:32 → ANH3MEDSUR 05-27 22:27
PROVIDERS: Student in an Organized Health Care Education/Training Program; Admitting Provider Internal Medicine; Emergency Provider Emergency Medicine; PCP Family Medicine; Visit Provider Internal Medicine
DX: E11.649 Type 2 diabetes mellitus with hypoglycemia without coma (principal); E46 Unspecified protein-calorie malnutrition; J84.9 Interstitial pulmonary disease, unspecified; I10 Essential (primary) hypertension; D63.8 Anemia in other chronic diseases classified elsewhere; R80.9 Proteinuria, unspecified; Z20.822 Contact with and (suspected) exposure to COVID-19; Z66 Do not resuscitate; Z68.22 Body mass index [BMI] 22.0-22.9, adult; Z79.4 Long term (current) use of insulin; Z85.46 Personal history of malignant neoplasm of prostate
CPT/HCPCS: 36415; 70450; 71045; 80053; 80069; 81001; 82570; 82607; 82746; 82948; 83036; 83735; 84145; 84156; 84439; 84443; 84480; 85025; 85027; 87086; 87637; 93970; 97110; 97116; 97161; 97165; 97530; 97535; 99285; A9270; G0378; J0696; J1815; J7030; J7121

== ENCOUNTER 2024-06-09 01:10 | Day surgery (SDC) | payer MEDICARE, MEDICAID, SELFPAY ==
--- NOTE | 2024-05-27 12:25 | P.HP_ITS ---
History of Present Illness History of Present Illness Consent: Risks, benefits, and alternatives have been discussed and questions answered. Patient agrees to proceed with procedure. Chief complaint: bladder stone, left ureteral stone Narrative: Gordy Lynn is a 88 year old male recently admitted with urinary tract infection and obstructing distal ureteral left stone. Dr. Argueta placed a ureteral stent. Imaging also demonstrates a small bladder stone. Now he has been treated with antibiotics we plan cystoscopy with left ureteroscopy, left ureteral stone extraction with possible laser lithotripsy retrograde pyelography and stent placement. We will also do a bladder stone extraction at that time Review of Systems Review of Systems: All systems reviewed & are unremarkable except as noted in HPI and below PMFSH Past Medical History Medical History Anemia Diabetes History of prostate cancer HTN (hypertension) Vitamin D3 deficiency Social History Social History Smoking status: Never smoker Alcohol intake: never Substance use: never Substance use type: does not use Do You Feel Safe in your Home?: Yes Lack of Transportation: No Lack of Food: Never True Current Housing: I Have Housing Concerned About Future Housing: No Difficulty Paying Gas/Electric Bills: No Difficulty Paying for Meds: No Currently Unemployed: No Education: Bachelor's Degree Difficulty w/ Childcare or Family Care: No Living arrangements: with family Spiritual care concerns: No Meds Home Medications and Allergies Home Medications Medication Instructions Recorded Confirmed Type Lactobacillus 1 cap PO DAILY 05/15/22 05/26/24 History acidophilus-Bifidobac.animalis 2.5 billion cell capsule (Daily Probiotic) cholecalciferol (vitamin D3) 50 50 mcg PO DAILY 05/15/22 05/26/24 History mcg (2,000 unit) tablet (Vitamin D3) ferrous sulfate 325 mg (65 mg 325 mg PO DAILY 05/15/22 05/26/24 History iron) tablet psyllium husk 0.4 gram capsule 0.4 g PO DAILY 05/15/22 05/26/24 History (Metamucil) fenofibrate 160 mg tablet 160 mg PO DAILY #90 tabs 12/25/23 05/26/24 Rx insulin degludec 100 unit/mL (3 15 unit (0.15 mL) subcut QHS #15 mL 01/12/24 05/26/24 Rx mL) subcutaneous pen (Tresiba FlexTouch U-100 insulin) losartan 50 mg tablet 50 mg PO DAILY 05/17/24 05/26/24 History omeprazole 20 mg capsule,delayed 20 mg PO DAILY 05/17/24 05/26/24 History release tamsulosin 0.4 mg capsule 0.8 mg PO DAILY 05/17/24 05/26/24 History hydrocodone 5 mg-acetaminophen 325 1 tablet PO Q6H PRN Pain Rated 4-6 05/21/24 05/26/24 Rx mg tablet 5 days #10 tabs hydrocodone 5 mg-acetaminophen 325 1 tablet PO Q8H PRN pain #20 tabs 05/21/24 05/26/24 Rx mg tablet levofloxacin 750 mg tablet 750 mg PO DAILY #10 tabs 05/21/24 05/26/24 Rx Allergies Allergy/AdvReac Type Severity Reaction Status Date / Time No Known Allergies Allergy Verified 05/16/24 12:49 Exam Const: General: no acute distress Resp: Effort & Inspection: normal respiratory effort GI: Inspection: non-distended GI Palp: No abdominal tenderness and No Guarding due to palpation present (GI) Auscultation: normal bowel sounds Assessment and Plan Assessment and plan (1) Ureteral stone: Code(s): N20.1 - Calculus of ureter Status: Acute (2) Bladder stone: Code(s): N21.0 - Calculus in bladder Status: Acute Assessment and Plan: * Cystoscopy, left ureteroscopy with stone extraction, possible laser lithotripsy, retrograde pyelography and stent placement. * Cystoscopy with extraction bladder stone
[2024-06-03 09:37] VITALS: BMI 20.4
--- NOTE | 2024-06-03 11:33 | PC.NURSE ---
Report to the Outpatient Waiting Room, entrance under the green pavilion located off [facility], at time _0730 on date __06/09/24 . Planned Procedure Time: _929 .? Time changes happen often and if your time is changed the preop area will call you the afternoon before. - You and your visitor will be asked to self-screen and do not enter if you have any COVID symptoms. Please call surgeon if you need to reschedule. - A mask is optional within the hospital at this time. Patients may have clear liquids (water, carbonated beverages, clear teas, apple juice) until 3 hours prior to surgery( 6:30 AM) with a maximum of 20 ounces. - No food from midnight until time of surgery and no smoking. This includes no chewing gum, candy or mints. - Infants may have breast milk until 4 hours before surgery, formula 6 hours prior to surgery. - Children will be allowed to drink immediately following surgery.? If applicable, please bring a bottle or sippy cup to assist with drinking. Juice, water, soda, and popsicles are readily available.? For infants on formula, please bring formula the day of surgery.? Pacifiers are allowed. Take only the following medications with a SIP of water on the morning of surgery: __NONE DO NOT STOP ANY OF YOUR OTHER PRESCRIPTION MEDICATIONS PRIOR TO SURGERY EXCEPT THE FOLLOWING Medications to discontinue per physician _HOLD ALL VITAMINS AND SUPPLEMENTS 7 DAYS PRE OP PER CATHLEEN LAST DOSE 06/02/24 Please no make-up, nail urdu, hairspray, perfume, deodorant, or body powder the day of surgery.? No jewelry (including any body piercings) or valuables the day of surgery, leave them at home.? Please take a shower or bath the night before, or the morning of, surgery with an antibacterial soap.? Wear comfortable, loose fitting clothing.? Children are encouraged to wear pajamas. - Jewelry must be removed prior to entering the operating room.? Rings and piercings that are not removed may be cut off. - The hospital will not accept responsibility for valuables.? - Please leave all valuables, including medications, at home the day of surgery. If you are going home after surgery, a licensed car driver must drive you home.? - NO public transportation without another adult if you receive anesthesia. - We recommend that an adult stay with you for 24 hours following discharge. - We also recommend that you do not drive, make important decision, drink alcoholic beverages, or take any drugs that were not prescribed by your health care provider for at least 24 hours after your discharge time. For Pediatric surgeries, we recommend two adults accompany the child home. Follow any additional instructions given to you from your surgeon. Telephone instructions given to _DAUGHTER IN LAW JULIÁN and asked if any additional questions and then verbalized understanding. Patient advised to call surgeon office or pre surgery nurse liaison [phone] if any additional questions.
--- NOTE | 2024-06-06 07:24 | P.HP_ITS ---
History of Present Illness History of Present Illness Consent: Risks, benefits, and alternatives have been discussed and questions answered. Patient agrees to proceed with procedure. Chief complaint: bladder stone, left ureteral stone Narrative: Gordy Lynn is a 88 year old male Admitted on May 16 with an obstructing left mid to distal ureteral stone with obstructive pyelonephritis and septic shock. He also has a small 3 mm bladder stone. After stabilization and treatment of his infection he now presents for cystoscopy with left ureteroscopy, stone extraction with possible laser lithotripsy retrograde pyelogram and stent placement. We will also plan bladder stone extraction. He is aware of the risks including, but not limited to, need for additional procedures, need to replace a stent, ureteral injury Review of Systems Review of Systems: All systems reviewed & are unremarkable except as noted in HPI and below PMFSH Past Medical History Medical History (Updated 05/31/24 @ 16:28 by Radha Whitehead MD) Anemia Diabetes Gait abnormality History of prostate cancer HTN (hypertension) ILD (interstitial lung disease) Sarcopenia Ureteral stone with hydronephrosis Vitamin D3 deficiency Social History Social History Smoking status: Never smoker Alcohol intake: never Substance use: never Substance use type: does not use Do You Feel Safe in your Home?: Yes Lack of Transportation: No Lack of Food: Never True Current Housing: I Have Housing Concerned About Future Housing: No Difficulty Paying Gas/Electric Bills: No Difficulty Paying for Meds: No Currently Unemployed: No Education: Bachelor's Degree Difficulty w/ Childcare or Family Care: No Living arrangements: with family Occupation/Education: retired Gender identity (if verbalized by the patient): Male Sexual Orientation (if Verbalized by the Patient): Straight or Heterosexual Spiritual care concerns: No Agree to blood products: No Meds Home Medications and Allergies Home Medications Medication Instructions Recorded Confirmed Type Lactobacillus 1 cap PO DAILY 05/15/22 06/03/24 History acidophilus-Bifidobac.animalis 2.5 billion cell capsule (Daily Probiotic) ferrous sulfate 325 mg (65 mg 325 mg PO DAILY 05/15/22 06/03/24 History iron) tablet psyllium husk 0.4 gram capsule 0.4 g PO DAILY 05/15/22 06/03/24 History (Metamucil) fenofibrate 160 mg tablet 160 mg PO DAILY #90 tabs 12/25/23 06/03/24 Rx tamsulosin 0.4 mg capsule 0.8 mg PO DAILY 05/17/24 06/03/24 History cholecalciferol (vitamin D3) 25 25 mcg PO DAILY 06/03/24 06/03/24 History mcg (1,000 unit) tablet cyproheptadine 4 mg PO BID 06/03/24 06/03/24 History docusate sodium 100 mg capsule 100 mg PO BID 06/03/24 06/03/24 History insulin lispro 100 unit/mL 1 sliding scale dose subcut 06/03/24 06/03/24 History subcutaneous cartridge USEASDIRECTD pantoprazole 40 mg tablet,delayed 40 mg PO QAM 06/03/24 06/03/24 History release Allergies Allergy/AdvReac Type Severity Reaction Status Date / Time No Known Allergies Allergy Verified 06/03/24 11:29 Exam Const: General: no acute distress Resp: Effort & Inspection: normal respiratory effort GI: Inspection: non-distended GI Palp: No abdominal tenderness and No Guarding due to palpation present (GI) Auscultation: normal bowel sounds Assessment and Plan Assessment and plan (1) Ureteral stone with hydronephrosis: Code(s): N13.2 - Hydronephrosis with renal and ureteral calculous obstruction Status: Acute (2) Bladder stone: Code(s): N21.0 - Calculus in bladder Status: Acute Assessment and Plan: * cystoscopy, bladder stone extraction, left ureteroscopy with stone extraction, possible laser lithotripsy, retrograde pyelogram and stent replacement
[2024-06-09] VITALS (9 sets, daily range): BP systolic 96–158; BP diastolic 58–80; PULSE 68–94; RESP 12–24; TEMP 36.6–36.8; O2SAT 94–100
--- NOTE | ~2024-06-09 | XR_ITS ---
EXAMINATION: XR fluoroscopy no charge DATE: 06/09/2024 08:47 INDICATION: Left ureteral stone. TECHNIQUE: 3 intraoperative fluoroscopic views of the abdomen and pelvis were obtained. I was not pre sent. Fluoroscopy exposure time was 29 seconds. COMPARISON: Fluoroscopy 05/16/2024, CT abdomen and pelvis 05/16/2024 FINDINGS: Initial images demonstrate a left internal ureteral stent in expected position. Surgical cl ips overlie the left pelvis. The final images demonstrate removal of the stent. IMPRESSION: 1. Left internal ureteral stent removal. Reviewed, dictated and finalized at location A. [employer]
--- NOTE | 2024-06-09 06:34 | WPDHPUPDATE1 ---
History and Physical Update Update Date/Time: 06/09/24 06:34 History and Physical has been reviewed, including an updated exam of the patient. There are NO changes in the patient's condition. Risks, benefits, and alternatives have been discussed and questions answered. Patient agrees to proceed with procedure.
[2024-06-09] MEDS: LACTATED RINGERS 1,000 ML 30 ML IV CONT (08:00)
--- NOTE | 2024-06-09 08:02 | P.PNAN_ITS ---
Anes - Initial Pre Proc Eval Procedure: Operation Date: 06/09/24 08:45 Proposed Procedures p Cystoscopy, Left Ureteroscopy, Left Stone Extraction, Possible Left Retrograde Pyelogram, Removal of Stent, Replacement of Left Stent, Possible Holmium Laser, Extraction of Small Bladder Stone - Enrique Wilkins MD Date/Time: 06/09/24 08:02 Surgeon: Enrique Wilkins MD Pre Op Diagnosis: bladder stone, left ureteral stone Patient Data Age: 88 Gender: M Height: 1.6 m Weight: 52.25 kg Allergies Allergy/AdvReac Type Severity Reaction Status Date / Time No Known Allergies Allergy Verified 06/03/24 11:29 Home Medications Medication Instructions Recorded Confirmed Type insulin lispro 100 unit/mL 1 sliding scale dose subcut 06/03/24 06/03/24 History subcutaneous cartridge USEASDIRECTD Lactobacillus 1 cap PO DAILY #30 caps 06/07/24 Rx acidophilus-Bifidobac.animalis 2.5 billion cell capsule (Daily Probiotic) cholecalciferol (vitamin D3) 25 25 mcg PO DAILY #30 tabs 06/07/24 Rx mcg (1,000 unit) tablet cyproheptadine 4 mg tablet 4 mg PO BID #60 tabs 06/07/24 Rx docusate sodium 100 mg capsule 100 mg PO BID #60 caps 06/07/24 Rx fenofibrate 160 mg tablet 160 mg PO DAILY #90 tabs 06/07/24 Rx ferrous sulfate 325 mg (65 mg 325 mg PO DAILY #30 tabs 06/07/24 Rx iron) tablet pantoprazole 40 mg tablet,delayed 40 mg PO QAM #30 tabs 06/07/24 Rx release psyllium husk 0.4 gram capsule 0.4 g PO DAILY #30 caps 06/07/24 Rx (Metamucil) tamsulosin 0.4 mg capsule 0.8 mg PO DAILY #60 caps 06/07/24 Rx Patient hx anesthesia problems: none Family hx anesthesia problems: none Results Review: All pre-operative results and documents have been reviewed as part of the pre- operative evaluation. [facility] Past Medical History Medical History Anemia Diabetes Gait abnormality History of prostate cancer HTN (hypertension) ILD (interstitial lung disease) Sarcopenia Ureteral stone with hydronephrosis Vitamin D3 deficiency Social History Social History Smoking status: Never smoker Alcohol intake: never Substance use: never Substance use type: does not use Do You Feel Safe in your Home?: Yes Lack of Transportation: No Lack of Food: Never True Current Housing: I Have Housing Concerned About Future Housing: No Difficulty Paying Gas/Electric Bills: No Difficulty Paying for Meds: No Currently Unemployed: No Education: Bachelor's Degree Difficulty w/ Childcare or Family Care: No Living arrangements: with family Occupation/Education: retired Gender identity (if verbalized by the patient): Male Sexual Orientation (if Verbalized by the Patient): Straight or Heterosexual Spiritual care concerns: No Agree to blood products: No Anes - Eval Final PreProcedure Day of Procedure 06/09/24 08:02 Patient weight: normal Heart: regular rate and rhythm Lungs: clear to auscultation Airway: Mallampati scale class II and special considerations (Edentulous upper. ) Neurological: alert and oriented Last oral intake: >/= 8 hours ASA classification: IV Emergent: no Anesthetic plan: proceed Anesthesia type and monitoring: general GIVS and standard monitoring Results Review: All pre-operative results and documents have been reviewed as part of the pre- operative evaluation. Notes and labs reviewed from prev admission. Pt just released from [place] to home yesterday, still w gen weakness but overall improving. Informed Consent: The patient's anesthetic plan and its attendant risks and benefits were discussed with the patient/family/POA. Questions were solicited and answers provided to the satisfaction of the patient/family/POA.
[2024-06-09 08:14] LABS: Glucose Point of Care 142 mg/dl (65-105)
[2024-06-09] MEDS: ceFAZolin 2 GM/D5W 50 ML 2 GM/50 ML BAG IVPB (08:16)
[2024-06-09] MEDS: LIDOCAINE HCL 2% GEL UROJET 10 ML PKG MUCOUS MEM (08:26)
--- NOTE | 2024-06-09 08:45 | W.PM.PROC2 ---
Procedure Note - Detailed Date of Procedure 06/09/24 Pre-op Diagnosis Bladder stone, left ureteral stone Post-op Diagnosis Same Procedure Performed Cystoscopy, left ureteral stent removal, left ureteroscopy with stone extraction Surgeon Enrique Wilkins MD Anesthesia General Description of Procedure Patient is brought to the operative suite was prepped and draped in routine sterile fashion while in dorsal lithotomy position after the uneventful induction of a general LMA anesthetic. 2% xylocaine jelly was introduced intraurethrally. Cystoscopy was undertaken 19 F rigid cystoscope. 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 His bladder was very carefully inspected and there are no bladder stones. The small 3 mm stone seen prior imaging has likely spontaneously passed. I grasped his indwelling stent and placed a 0.035 in glidewire to his left renal pelvis. The distal ureter was dilated with an 8 F 10 F dilator. Ureteroscopy was undertaken with a short taper semi-rigid ureteral scope his 5 mm distal ureteral stone is extracted with ease with a 1.9 F disposable stone basket. Because of the ease of this manipulation I opted not to place a ureteral stent. Scopes and wires removed and he was taken recovery room good condition. Drains No Packing No Pathology Yes Complications No immediate complications
[2024-06-09 09:14] LABS: Glucose Point of Care 140 mg/dl (65-105)
[2024-06-09 09:19] LABS: Glucose Point of Care 121 mg/dl (65-105)
== END 2024-06-09 10:37 | disposition home or self-care (01) ==
PROVIDERS: PCP Family Medicine; Visit Provider Urology
PROC: (CPT 52352; principal; 2024-06-09 08:45)
DX: N40.1 Benign prostatic hyperplasia with lower urinary tract symptoms (principal); I10 Essential (primary) hypertension; J84.9 Interstitial pulmonary disease, unspecified; E11.9 Type 2 diabetes mellitus without complications; D64.9 Anemia, unspecified; E55.9 Vitamin D deficiency, unspecified; Z85.46 Personal history of malignant neoplasm of prostate; Z79.4 Long term (current) use of insulin; Z79.891 Long term (current) use of opiate analgesic
CPT/HCPCS: 52352; 82365; 82948; 88300; 99199; C1769; J0690; J2003; J2371; J2405; J2704; J3010; J7120